=== PATIENT | female | born 1935 | race Caucasian/White ===

== ENCOUNTER → 2018-02-03 15:30 | Outpatient (CLI) | payer MEDICARE, OTHER, SELFPAY ==
--- NOTE | 2018-02-03 15:41 | DI.REPORT_ITS ---
SYMPTOMS/DIAGNOSIS: RIGHT KNEE PAIN, M25.561 RIGHT KNEE: Multiple views. Comparison is 11/30/12. In the medial femorotibial joint space, there is mild joint space narrowing and moderate periarticular spurring. There is a small osteophyte seen at the posterior patella. Chondrocalcinosis is seen in the femorotibial joint space. The bones are intact and normally mineralized. There is a small joint effusion. Arterial calcifications are seen posteriorly. IMPRESSION: Mild to moderate degenerative changes of the right knee.
== END ==
PROVIDERS: PCP Nurse Practitioner Family; Visit Provider Nurse Practitioner Family
DX: M25.561 Pain in right knee (principal); M25.461 Effusion, right knee; M17.11 Unilateral primary osteoarthritis, right knee
CPT/HCPCS: 73562

== ENCOUNTER 2018-11-24 07:11 | Outpatient (CLI) | payer MEDICARE, OTHER, SELFPAY ==
[2018-11-24 07:45] LABS: HCT 40.6 % (36.0-46.0); HGB 14.1 g/dL (12.0-15.5); Mean Corp. HGB Concentration 34.7 g/dL (32.0-36.0); Mean Corpuscular Hemoglobin 35.2 pg (27.0-33.0); Mean Corpuscular Volume 101.2 fL (80-95); Platelet Count 193 x1000/uL (130-400); RBC 4.01 m/cumm (4.00-5.20); RBC Distribution Width 14.4 % (11.7-14.6); White Blood Cell Count 6.61 k/cumm (4.4-10.8)
[2018-11-24 07:55] LABS: Hemoglobin A1C 5.7 % (4.5-6.2)
[2018-11-24 08:50] LABS: Anion Gap 8.6 mmol/L (3-11); BUN 8 mg/dL (7-18); CO2 31.4 mmol/L (21.0-32.0); CREATININE 0.84 mg/dL (0.55-1.02); Calcium 9.4 mg/dL (8.5-10.1); Chloride 100 mmol/L (98-107); Glucose 99 mg/dL (70-100); Potassium 3.4 mmol/L (3.5-5.1); Sodium 140 mmol/L (136-145); TSH (W/Ref FT4) 2.53 uIU/mL (0.358-3.74)
== END 2018-11-24 07:31 ==
PROVIDERS: PCP Nurse Practitioner Family; Visit Provider Family Medicine
DX: I10 Essential (primary) hypertension (principal); R73.03 Prediabetes; E66.9 Obesity, unspecified
CPT/HCPCS: 36415; 80048; 85027; 83036; 84443

== ENCOUNTER 2018-12-10 01:06 | Outpatient (CLI) | payer MEDICARE, OTHER, SELFPAY ==
--- NOTE | 2018-12-10 13:01 | DI.CT_ITS ---
SYMPTOMS/DIAGNOSIS: LUNG CANCER, RIGHT NON-SMALL CELL RESECTION IN 2012, C34.91 CT SCAN OF THE CHEST: Noncontrast CT scan of the chest was performed. Comparison examination is 05/15/15. Since the prior examination, there has developed a soft tissue mass in the right upper lobe posteriorly. It measures 2.6 cm AP x 2.3 cm transverse x 3.2 cm craniocaudad. No other pulmonary masses are seen. No focal consolidating infiltrates are present. There is scarring seen in the lung apices. The thoracic aorta is of normal caliber with mild atherosclerosis. The heart size is within normal limits. No significant pericardial effusion is present. No significant thoracic adenopathy is appreciated. No pericardial effusion or pleural effusion is present. There is no evidence of a pneumothorax. The upper abdominal images are grossly unremarkable. Degenerative changes are seen in the spine. IMPRESSION: New 2.6 x 2.3 x 3.2 cm soft tissue mass in the right upper lobe suspicious for neoplasm. Infectious or inflammatory process is considered less likely. A PET scan may be considered for further evaluation.
[2018-12-10] MEDS: Omnipaque 350 MG/ML 100 ML BTL IJ (13:42)
== END 2018-12-10 01:26 ==
PROVIDERS: PCP Family Medicine; Visit Provider Family Medicine
DX: C34.91 Malignant neoplasm of unspecified part of right bronchus or lung (principal); R91.8 Other nonspecific abnormal finding of lung field
CPT/HCPCS: 71260; J3490

== ENCOUNTER 2018-12-22 01:16 | Outpatient (CLI) | payer MEDICARE, OTHER, SELFPAY ==
--- NOTE | 2018-12-22 14:10 | MERGE_ITS ---
*[facility]* *[facility]* [address] [place] [address] Date of study: 12/22/2018 Transthoracic Echocardiography M-mode, complete 2D, complete spectral Doppler, and color Doppler *STUDY CONCLUSIONS* Impressions: Moderately severe aortic stenosis. Compared to the 2017 study, these findings represent indicate worsening. Summary: 1. Left ventricle: The cavity size was normal. Wall thickness was increased in a pattern of mild LVH. Systolic function was hyperdynamic. The estimated ejection fraction was 65-70%. Wall motion was normal; there were no regional wall motion abnormalities. Findings consistent with diastolic dysfunction. 2. Aortic valve: Valve mobility was restricted. There was moderately severe stenosis. There was mild regurgitation. Peak velocity (S): 4m/sec. Mean gradient (S): 34.1mm Hg. Valve area (VTI): 0.9cm^2. Peak velocity ratio of LVOT to aortic valve: 0.28. 3. Mitral valve: There was mild regurgitation. 4. Left atrium: The atrium was mildly dilated. 5. Right ventricle: The cavity size was normal. Wall thickness was normal. Systolic function was normal. 6. Pulmonary arteries: Pulmonary systolic pressure was increased, in the range of 35mm Hg to 40mm Hg. *PATIENT PRESENTATION* Height: 157.5cm ((62in) ) S/D Pressure: 133 / 76 Weight: 79.4kg ((174.6lb) ) BSA: 1.9m^2 Test start time: 02:15 PM. Test stop time: 03:15 PM. CONSULTING Leatha Lira ORDERING PankajLeatha REFERRING Leatha Lira PERFORMING Unknown PERFORMING [facility] FOREIGN DIPLOMAT Criselda Hancock, RT (Arlene)(CT), RDCS REFERRING [facility] [place], [facility] *PROCEDURE DATA* Procedure information: The patient was identified by two identifiers. This study was interpreted by [facility]. Pertinent images and digital data are archived for permanent storage and are available for subsequent review. Comparison was made to the study of 10/02/2015. Study status: Routine. Transthoracic echocardiography. M-mode, complete 2D, complete spectral Doppler, and color Doppler. A Transthoracic Echocardiogram was performed. Scanning was performed from the parasternal, apical, subcostal, and suprasternal notch acoustic windows. Images were obtained using an [id number] cardiac ultrasound machine. Image quality was adequate. Study completion: The patient tolerated the procedure well. There were no complications. History: PMH: Aortic .0. *CARDIAC ANATOMY* Left ventricle: The cavity size was normal. Wall thickness was increased in a pattern of mild LVH. Systolic function was hyperdynamic. The estimated ejection fraction was 65-70%. Wall motion was normal; there were no regional wall motion abnormalities. Findings consistent with diastolic dysfunction. Aortic valve: Probably trileaflet; moderately calcified leaflets. Valve mobility was restricted. Doppler: There was moderately severe stenosis. There was mild regurgitation. VTI ratio of LVOT to aortic valve: 0.31. Valve area (VTI): 0.9cm^2. Indexed valve area (VTI): 0.5cm^2/m^2. Peak velocity ratio of LVOT to aortic valve: 0.28. Valve area (Vmax): 0.8cm^2. Indexed valve area (Vmax): 0.4cm^2/m^2. Mean velocity ratio of LVOT to aortic valve: 0.32. Valve area (Vmean): 1cm^2. Indexed valve area (Vmean): 0.5cm^2/m^2. Mean gradient (S): 34.1mm Hg. Peak gradient (S): 64.9mm Hg. Aorta: Aortic root: The aortic root was normal in size. Ascending aorta: The ascending aorta was normal in size. Mitral valve: Leaflet separation was normal. Mobility was not restricted. Doppler: Transvalvular velocity was within the normal range. There was no evidence for stenosis. There was mild regurgitation. Valve area by pressure half-time: 3.8cm^2. Indexed valve area by pressure half-time: 2cm^2/m^2. Peak gradient (D): 2.9mm Hg. Left atrium: The atrium was mildly dilated. Right ventricle: The cavity size was normal. Wall thickness was normal. Systolic function was normal. Pulmonic valve: Doppler: Transvalvular velocity was within the normal range. There was no evidence for stenosis. There was no significant regurgitation. Tricuspid valve: Structurally normal valve. Doppler: Transvalvular velocity was within the normal range. There was no evidence for stenosis. There was trivial regurgitation. Pulmonary artery: Pulmonary systolic pressure was increased, in the range of 35mm Hg to 40mm Hg. Right atrium: The atrium was normal in size. Pericardium: There was no pericardial effusion. Systemic veins: Inferior vena cava: Well visualized. The vessel was patent and small. The respirophasic diameter changes were in the normal range (greater than or equal to 50%). Baseline ECG: Bradycardia. Measurements Left ventricle Value Reference LV ID, ED, PLAX 4.5 cm 3.5 - 6.0 LV ID, ES, PLAX 2.8 cm 2.1 - 4.0 LV PW thickness, ED, PLAX 1.2 cm LV end-diastolic volume, 1-p A2C 104 ml LV ejection fraction, 1-p A2C 61 % LV end-diastolic volume, 1-p A4C 72 ml LV ejection fraction, 1-p A4C 67 % LV e', lateral 0.063 m/sec LV E/e', lateral 14 LV e', medial 0.053 m/sec LV E/e', medial 16 LV e', average 0.058 m/sec LV E/e', average 15 Ventricular septum Value Reference IVS thickness, ED, PLAX 1.1 cm LVOT Value Reference LVOT ID, A-P 2.0 cm LVOT area 3 cm^2 LVOT peak velocity, S 1.13 m/sec LVOT mean velocity, S 0.9 m/sec LVOT VTI, S 32.1 cm LVOT peak gradient, S 5.1 mm Hg LVOT mean gradient, S 3.4 mm Hg Stroke volume (SV), LVOT DP 97 ml Stroke index (SV/bsa), LVOT DP 51 ml/m^2 Aortic valve Value Reference Aortic valve peak velocity, S 4 m/sec Aortic valve mean velocity, S 2.75 m/sec Aortic valve VTI, S 102.0 cm Aortic mean gradient, S 34.1 mm Hg Aortic peak gradient, S 64.9 mm Hg VTI ratio, LVOT/AV 0.31 Aortic valve area, VTI 0.9 cm^2 Velocity ratio, peak, LVOT/AV 0.28 Aortic valve area, peak velocity 0.8 cm^2 Velocity ratio, mean, LVOT/AV 0.32 Aortic valve area, mean velocity 1 cm^2 Aortic valve area/bsa, mean velocity 0.5 cm^2/m^2 Aortic regurg deceleration 266 cm/s^2 Aortic regurg pressure half-time 476 ms Aorta Value Reference Aortic root ID, ED 3.2 cm Ascending aorta ID, A-P, S 3.0 cm Left atrium Value Reference LA ID, A-P, ES 3.4 cm LA ID/bsa, A-P 1.8 cm/m^2 <=2.2 LA area, ES, A4C 17.4 cm^2 8.8 - 23.4 LA area, ES, A2C 21 cm^2 LA volume/bsa, ES, 1-p A4C 30 ml/m^2 LA volume, ES, 2-p 62 ml LA volume/bsa, ES, 2-p 32 ml/m^2 LA/aortic root ratio 1.07 Mitral valve Value Reference Mitral E-wave peak velocity 0.85 m/sec Mitral A-wave peak velocity 1.11 m/sec Mitral deceleration time 202 ms 150 - 230 Mitral pressure half-time 58 ms Mitral peak gradient, D 2.9 mm Hg Mitral E/A ratio, peak 0.77 Mitral valve area, PHT, DP 3.8 cm^2 Tricuspid valve Value Reference Tricuspid regurg peak velocity 3.2 m/sec Tricuspid peak RV-RA gradient 40.8 mm Hg Right atrium Value Reference RA area, ES, A4C 16.8 cm^2 8.3 - 19.5 Legend: (L) and (H) sravani values outside specified reference range. I have personally reviewed the images and have reviewed and edited the reported findings. Electronically signed by Lalo Silvestre 12/22/2018 16:26
== END 2018-12-22 01:36 ==
PROVIDERS: PCP Family Medicine; Visit Provider Family Medicine
DX: I35.0 Nonrheumatic aortic (valve) stenosis (principal); I34.0 Nonrheumatic mitral (valve) insufficiency; I51.7 Cardiomegaly; I10 Essential (primary) hypertension
CPT/HCPCS: 93306

== ENCOUNTER → 2019-01-13 09:56 | Outpatient (BNVA) | payer MEDICARE, OTHER, SELFPAY | PROVIDERS: PCP Family Medicine; Referring Provider Family Medicine; Visit Provider Student in an Organized Health Care Education/Training Program | DX: M17.11 Unilateral primary osteoarthritis, right knee (principal); I10 Essential (primary) hypertension; J44.9 Chronic obstructive pulmonary disease, unspecified; Z87.891 Personal history of nicotine dependence | CPT/HCPCS: 20610; 99203; 99213; J1040 ==

== ENCOUNTER 2019-01-22 11:16 | Outpatient (CLI) | payer MEDICARE, OTHER, SELFPAY ==
[2019-01-22 12:20] LABS: BUN 18 mg/dL (7-18)
== END 2019-01-22 11:36 ==
PROVIDERS: PCP Family Medicine; Visit Provider Internal Medicine
DX: R91.8 Other nonspecific abnormal finding of lung field (principal)
CPT/HCPCS: 36415; 84520

== ENCOUNTER 2019-02-19 01:04 | Outpatient (CLI) | payer MEDICARE, OTHER, SELFPAY ==
--- NOTE | 2019-02-19 13:25 | DI.CT_ITS ---
SYMPTOM/DIAGNOSIS: MALIGNANT NEOPLASM LOWER RT LOBE LUNG C34.31, MASS UPPER LOBE RT LUNG R91.8 CT BRAIN: Pre and post contrast examination was performed. Comparison MRI examination is 02/13/19 There is cerebral atrophy consistent with the patient's age. There are areas of decreased attenuation in the white matter likely reflecting small vessel ischemic disease. No evidence of an acute territorial infarct, intracranial hemorrhage, midline shift or mass effect is identified. The ventricles are intact. The basilar cisterns are patent The visualized paranasal sinuses are clear as are the mastoid air cells. Following contrast administration no enhancing lesions are seen. There is a question of a small lytic lesion in the posterior right parietal bone (Series 5, image 130). It is definitely appear to correspond to the area seen on the MRI examination. No periosteal reaction is identified. No other definite lytic or sclerotic lesion is seen. IMPRESSION: 1. No evidence of intracranial metastatic disease 2. No definite osseous lesion to correspond to the enhancement seen on the MRI examination. A bone scan should be considered for further evaluation. A PET CT scan may also be considered.
[2019-02-19 14:35] LABS: CREATININE 1.04 mg/dL (0.55-1.02); Estimated GFR 50.86 (mL/min/1.73m2)
[2019-02-19] MEDS: Omnipaque 350 MG/ML 100 ML BTL IJ (15:04)
== END 2019-02-19 01:24 ==
PROVIDERS: PCP Family Medicine; Visit Provider Thoracic Surgery (Cardiothoracic Vascular Surgery)
DX: C34.31 Malignant neoplasm of lower lobe, right bronchus or lung (principal); R91.8 Other nonspecific abnormal finding of lung field; G31.89 Other specified degenerative diseases of nervous system; Z90.2 Acquired absence of lung [part of]
CPT/HCPCS: 70470; 82565; J3490

== ENCOUNTER 2019-04-08 13:24 | Outpatient (CLI) | payer MEDICARE, OTHER, SELFPAY ==
--- NOTE | 2019-04-08 09:50 | PFT_ITS ---
PULMONARY FUNCTION TEST REPORT REQUESTING PROVIDER: Dr. Dacosta Spirometry shows mild obstructive airways disease with no significant bronchodilator response. Lung volumes show no evidence of restriction. Diffusion capacity mildly reduced, which is normal when corrected to alveolar volume. Airways resistance normal. IMPRESSION: Mild obstructive airways disease with no significant bronchodilator response. This is associated with mild diffusion defect. Clinical correlation recommended. For lung resection purposes, the patient?s total post- bronchodilator FEV1 is 1.45 liters. When this study was compared to previous ones from 09/23/08, 01/21/13, 11/17/14 and 09/13/15, the patient has an initial drop in FVC, but overall has been stable since 2012. FEV1 again had an initial drop but has been stable since 2013. KAYLI/carmella D/
[2019-04-08] MEDS: Inhaler, Assist Device 1 EACH MC (14:19)
[2019-04-08] MEDS: Albuterol HFA 18 GM 200 PUFF INH IH (14:20)
== END 2019-04-08 13:44 ==
PROVIDERS: PCP Family Medicine; Visit Provider Family Medicine
DX: C34.31 Malignant neoplasm of lower lobe, right bronchus or lung (principal); Z87.891 Personal history of nicotine dependence
CPT/HCPCS: 94060; 94150; 94726; 94729

== ENCOUNTER 2019-04-19 01:11 | Outpatient (CLI) | payer MEDICARE, OTHER, SELFPAY ==
[2019-04-19 13:04] LABS: CREATININE 0.79 mg/dL (0.55-1.02)
[2019-04-19] MEDS: Omnipaque 350 MG/ML 100 ML BTL IJ (14:08)
--- NOTE | 2019-04-19 14:09 | DI.CT_ITS ---
EXAM: CT CHEST CLINICAL HISTORY: MALIGNANT NEOPLASM RT UPPER LOBE OF LUNG C34.11, RESTAGING PRIOR TO XRT TECHNIQUE: Post IV contrast COMPARISON: CT CHEST W from 12/10/2018 FINDINGS: There has been interval increase in size of the previously noted mass in the posterior right upper l obe. It now measures 3.7 x 3.5 cm. Mass lies directly adjacent to the hilum. The lymph nodes versus fluid is noted in the region of the AP window and subcarinal region. There are smaller areas of nod ularity seen posterior to the main mass, near the pleura. There has been no change in 2 small nodule s in the right upper lobe anteriorly. Again noted are mild underlying emphysematous changes. No ple ural or pericardial effusions are seen. The liver, gallbladder, pancreas, adrenal and right kidney are unremarkable. Left renal cysts are se en. The spleen again has a lobulated appearance. The aorta shows calcification but is normal in rola meter. There is a lymph node at the level of celiac axis measuring 9 millimeters. No definite lytic or blastic bony lesions are seen. IMPRESSION: Interval increase in size of right upper lobe mass.
--- NOTE | 2019-04-19 16:52 | DI.VRAD_ITS ---
PROCEDURE INFORMATION: Exam: CT Chest With Contrast Exam date and time: 04/19/2019 2:10 PM Clinical history: 83 years old, female; Condition or disease; Lung condition and disease; Other: Malignant neoplasm RT upper lobe; Patient HX: Malignant neoplasm of RT upper lobe; Additional info: Restaging prior to xrt TECHNIQUE: Imaging protocol: Computed tomography of the chest with intravenous contrast. COMPARISON: CT CHEST W 12/10/2018 1:19 PM FINDINGS: Lungs: Again noted is a mass in the posterior aspect of the right upper lobe. It measures 3.67 x 3.5 cm. It has increased in size since November from 2.5 x 2.3 cm. Known malignancy. Groundglass pulmonary nodule 7.4 mm right lower lobe (2:37). 4.3 mm nodule right middle lobe. Pleural space: Unremarkable. No pneumothorax. No pleural effusion. Heart: Coronary artery calcifications may indicate coronary artery disease. There is calcification of the aortic valve annulus. There is calcification of the mitral valve annulus. Aorta: Unremarkable. No aortic aneurysm. Lymph nodes: Pathologic node in aorticopulmonary window 14.5 x 10.7 mm. Kidneys and ureters: 16mm cyst in the left kidney. Nonobstructing right renal calculi Bones/joints: Incompletely healed right rib fractures Soft tissues: Unremarkable. IMPRESSION: 1. Again noted is a mass in the posterior aspect of the right upper lobe. It measures 3.67 x 3.5 cm. It has increased in size since November from 2.5 x 2.3 cm. Known malignancy. 2. Pathologic node in aorticopulmonary window 14.5 x 10.7 mm. 3. Groundglass pulmonary nodule 7.4 mm right lower lobe (2:37). 4. 4.3 mm nodule right middle lobe. Dictated and Authenticated by: Fito Orosco MD. Ordering:AYO Arce MD
== END 2019-04-19 01:31 ==
PROVIDERS: PCP Family Medicine; Visit Provider Radiology Radiation Oncology
DX: C34.11 Malignant neoplasm of upper lobe, right bronchus or lung (principal); R91.8 Other nonspecific abnormal finding of lung field
CPT/HCPCS: 71260; 82565; J3490

== ENCOUNTER 2019-09-28 14:16 | Outpatient (CLI) | payer MEDICARE, OTHER, SELFPAY ==
[2019-10-01 09:23] LABS: SARS-CoV-2 RNA Undetected (Undetected); SARS-CoV-2 Specimen Source Nasal
== END 2019-09-28 14:36 ==
PROVIDERS: PCP Family Medicine; Visit Provider Physician Assistant
DX: Z20.828 Contact with and (suspected) exposure to other viral communicable diseases (principal); Z11.59 Encounter for screening for other viral diseases; J06.9 Acute upper respiratory infection, unspecified
CPT/HCPCS: 87449; U0003

== ENCOUNTER 2019-10-29 01:16 | Outpatient (CLI) | payer MEDICARE, OTHER, SELFPAY ==
--- NOTE | 2019-10-29 | DI.CT_ITS ---
EXAM: CT CHEST W CLINICAL HISTORY: F/U RUL LUNG CA, C34.11, S/P RT, RESTAGING EXAM TECHNIQUE: Imaging Protocol: Axial computed tomography images with coronal and sagittal reformatted images were created and reviewed CONTRAST MATERIAL: Intravenous: Omnipaque 350 Contrast volume:70 ml. COMPARISON: CT CHEST W from 04/19/2019 FINDINGS: Mediastinum and Silvia: No dominant adenopathy or fluid collection. Pulmonary parenchyma: Again noted is right-sided volume loss. There is now a large quantity of incr eased airspace density seen in the right upper lobe. Air bronchograms are seen. The findings are co nsistent with post treatment changes. The previously noted right upper lobe mass is no longer visibl e. Multiple nodular densities are seen in both lung bases, which could represent infiltrates, or met astatic disease is not entirely excluded. Pleura: No effusion or pneumothorax. Heart: The heart is mildly dilated. Coronary artery calcifications are seen. Aorta: Thoracic aorta is ectatic and calcified but non-dilated. Upper abdomen: Unremarkable. Lymph nodes: Within normal limits. Bones: Postsurgical deformities of the right ribs. Degenerative changes are seen in the spine. IMPRESSION: Marked interval increase in airspace opacities in the right upper lobe may represent post treatment c hanges. The previously noted mass is no longer visible. RADIATION DOSE DELIVERED: Total DLP DATA REPOSITORY: All CT scans at this facility are submitted to the National Radiology Data Registry (NRDR) Dose Index Registry (DIR) with the [employer] (ACR). RADIATION OPTIMIZATION: All CT scans at this facility use at least one of these dose optimization te chniques: automated exposure control; mA and/or kV adjustment per patient size (includes targeted exa ms where dose is matched to clinical indication); or iterative reconstruction.
[2019-10-29 12:58] LABS: CREATININE 0.81 mg/dL (0.55-1.02)
== END 2019-10-29 01:36 ==
PROVIDERS: PCP Family Medicine; Visit Provider Radiology Radiation Oncology
DX: C34.11 Malignant neoplasm of upper lobe, right bronchus or lung (principal); Z92.3 Personal history of irradiation; J98.4 Other disorders of lung
CPT/HCPCS: 71260; 82565

== ENCOUNTER 2019-12-08 21:01 | Outpatient (REF) | payer MEDICARE, OTHER, SELFPAY ==
[2019-12-08 20:40] LABS: Anion Gap 5.2 mmol/L (3-11); BUN 17 mg/dL (7-18); CO2 31.8 mmol/L (21.0-32.0); CREATININE 1.38 mg/dL (0.55-1.02); Calcium 9.6 mg/dL (8.5-10.1); Chloride 101 mmol/L (98-107); Glucose 98 mg/dL (74-106); Potassium 4.5 mmol/L (3.5-5.1); Sodium 138 mmol/L (136-145)
[2019-12-08 21:11] LABS: Hemoglobin A1C 5.9 % (3.8-5.6)
== END 2019-12-08 21:21 ==
LOC: NCHCN 21:01
PROVIDERS: PCP Family Medicine; Visit Provider Family Medicine
DX: R73.03 Prediabetes (principal); I10 Essential (primary) hypertension
CPT/HCPCS: 80048; 83036

== ENCOUNTER 2019-12-13 18:27 | Outpatient (REF) | payer MEDICARE, OTHER, SELFPAY ==
[2019-12-13 17:07] LABS: Bilirubin Negative (Negative); Blood Negative (Negative); Clarity Clear (Clear); Glucose Negative (Negative); Ketones Negative (Negative); Leukocyte Esterase Negative (Negative); Nitrite Negative (Negative); Specific Gravity 1.015 (1.005-1.025); Urobilinogen 0.2 EU/dL (Up TO 0.2)
== END 2019-12-13 18:47 ==
LOC: LBN 18:27
PROVIDERS: PCP Family Medicine; Visit Provider Family Medicine
DX: N39.3 Stress incontinence (female) (male) (principal); R94.4 Abnormal results of kidney function studies
CPT/HCPCS: 81003

== ENCOUNTER 2019-12-15 02:41 | Outpatient (CLI) | payer MEDICARE, OTHER, SELFPAY ==
--- NOTE | 2019-12-15 | DI.US_ITS ---
EXAM: US RENAL CLINICAL HISTORY: ABNL RENAL FUNCTION FINDING, R94.4. TECHNIQUE: Bray scale, color and spectral Doppler were used. COMPARISON: CR ABD FLAT UPRIGHT PA CHEST from 06/03/2011 CT CHEST WITHOUT CONTRAST from 06/20/[address] CHEST W from 10/29/2019 FINDINGS: Renal size in cm: Right: 10.5 left: 9.2 Echogenicity: Normal Hydronephrosis: No Cyst or mass: 12 millimeter cyst in the mid left kidney. Nephrolithiasis: 3 millimeter stone near the lower pole of the right kidney. 6 millimeter stone at t he medial right kidney. Other findings: None Bladder:Normal ureteral jets were visualized. Prevoid vol:38 cc Postvoid vol:16 cc IMPRESSION: Nonobstructing right renal calculi. Small left renal cyst. DATA REPOSITORY:
== END 2019-12-15 03:01 ==
PROVIDERS: PCP Family Medicine; Visit Provider Family Medicine
DX: N20.0 Calculus of kidney (principal); N28.1 Cyst of kidney, acquired; R94.4 Abnormal results of kidney function studies
CPT/HCPCS: 76770

== ENCOUNTER 2020-02-16 01:37 | Outpatient (CLI) | payer MEDICARE, OTHER, SELFPAY ==
[2020-02-16] MEDS: Normal Saline - Diluent 50 ML VIAL IV (14:44)
[2020-02-16] MEDS: Omnipaque 350 MG/ML 100 ML BTL IJ (14:46)
--- NOTE | 2020-02-16 14:50 | DI.CT_ITS ---
EXAM: CT CHEST W CLINICAL HISTORY: H/O LUNG CA,S/P TREATMENT, ? STATUS OF DISEASE TECHNIQUE: Imaging Protocol: Axial computed tomography images with coronal and sagittal reformatted images were created and reviewed CONTRAST MATERIAL: Intravenous: Omnipaque 350 Contrast volume:69 cc COMPARISON: CT CT CHEST W from 10/29/2019 FINDINGS: Mediastinum and Silvia: No dominant adenopathy or fluid collection. Pulmonary parenchyma: Right upper lobe volume loss and right upper lobe consolidation, increase in co mponent compared with the previous exam. No discrete mass is visible. Pleura: No effusion or pneumothorax. Heart: The heart is mildly dilated. Marked coronary artery calcifications are seen. Aorta: Thoracic aorta non-dilated. Atherosclerotic changes and tortuosity. Upper abdomen: Small hiatal hernia. Lymph nodes: Within normal limits. Bones: Right posterior rib defects. Degenerative disc changes in the spine. No lytic or blastic les ions are seen. IMPRESSION: Right upper lobe volume loss and post treatment changes. There consolidation in the right upper lobe has increased. No mass is visible. No adenopathy or metastases are identified. RADIATION DOSE DELIVERED: 452.71mGy.cm Total DLP DATA REPOSITORY: All CT scans at this facility are submitted to the National Radiology Data Registry (NRDR) Dose Index Registry (DIR) with the [employer] (ACR). RADIATION OPTIMIZATION: All CT scans at this facility use at least one of these dose optimization te chniques: automated exposure control; mA and/or kV adjustment per patient size (includes targeted exa ms where dose is matched to clinical indication); or iterative reconstruction.
== END 2020-02-16 01:57 ==
PROVIDERS: Radiology Radiation Oncology; PCP Family Medicine; Visit Provider Nurse Practitioner Family
DX: J18.1 Lobar pneumonia, unspecified organism (principal); Z85.118 Personal history of other malignant neoplasm of bronchus and lung
CPT/HCPCS: 71260; 82565; J3490

== ENCOUNTER 2020-04-05 00:26 | Outpatient (CLI) | payer MEDICARE, OTHER, SELFPAY ==
--- NOTE | 2020-04-05 | DI.CT_ITS ---
EXAM: CT CHEST WO CLINICAL HISTORY: H/O LUNG CANCER, S/P TREATMENT, ? STATUS OF DISEASE, PRIMARY NEOPLASM RUL TECHNIQUE: COMPARISON: CT CT CHEST W from 02/16/2020 FINDINGS: CT examination of the chest was performed without contrast administration. Examination is compared w ith most recent prior CT February 15. Patient the right upper lobe lung carcinoma, note is again mad e large areas of consolidation/volume loss the right upper lobe. The findings are essentially unchan ged comparison with the previous examination. No new mediastinal hilar adenopathy seen. There is no significant axillary or supraclavicular adenopathy. Trace right pleural effusion again noted. Left lung remains clear. Coronary artery calcification again noted. Images obtained through the upper abdomen show unremarkable appearance of visualized portions of live r, spleen, and pancreas by noncontrast criteria. Bilateral nonobstructing renal calculi noted. Adre nals appear normal. IMPRESSION: Stable appearance of right upper lobe consolidation/volume loss in a patient with known lung carcinom a. No change from 02/16/2020. RADIATION DOSE DELIVERED: 569.51mGy.cm Total DLP
== END 2020-04-05 00:46 ==
PROVIDERS: PCP Family Medicine; Visit Provider Nurse Practitioner Family
DX: C34.11 Malignant neoplasm of upper lobe, right bronchus or lung (principal)
CPT/HCPCS: 71250

== ENCOUNTER 2020-05-31 10:30 | Outpatient (REF) | payer MEDICARE, OTHER, SELFPAY ==
[2020-05-31 19:56] LABS: Anion Gap 3.8 mmol/L (3-11); BUN 16 mg/dL (7-18); CO2 33.2 mmol/L (21.0-32.0); CREATININE 0.94 mg/dL (0.55-1.02); Calcium 9.1 mg/dL (8.5-10.1); Chloride 107 mmol/L (98-107); Estimated GFR 56.87 (mL/min/1.73m2); Glucose 85 mg/dL (74-106); Potassium 3.9 mmol/L (3.5-5.1); Sodium 144 mmol/L (136-145)
[2020-05-31 19:57] LABS: HCT 41.3 % (36.0-46.0); HGB 13.1 g/dL (11.2-15.7); MCH 32.8 pg (27.0-33.0); MCHC 31.7 % (32.0-36.0); MCV 103.5 fL (80-95); MPV 12.1 fL (8.0-11.0); Platelet Count 230 10^3/uL (130-400); RBC 3.99 10^6/uL (3.93-5.22); RDW 14.6 % (11.7-14.6); RDW-SD 56.9 fL; WBC 6.29 10^3/uL (4.4-10.8)
== END 2020-05-31 10:50 ==
LOC: NCHCN 10:30
PROVIDERS: PCP Family Medicine; Visit Provider Family Medicine
DX: I10 Essential (primary) hypertension (principal)
CPT/HCPCS: 80048; 85027

== ENCOUNTER → 2020-08-03 10:21 | Outpatient (BNVA) | payer MEDICARE, OTHER, SELFPAY | PROVIDERS: PCP Family Medicine; Referring Provider Family Medicine; Visit Provider Nurse Practitioner Gerontology | DX: R32 Unspecified urinary incontinence (principal); R31.9 Hematuria, unspecified | CPT/HCPCS: 81003; 99215 ==

== ENCOUNTER 2020-08-04 00:10 | Outpatient (REF) | payer MEDICARE, OTHER, SELFPAY | END 2020-08-04 00:11 | LOC: LBN 00:10 | PROVIDERS: PCP Family Medicine; Visit Provider Nurse Practitioner Gerontology | DX: R31.9 Hematuria, unspecified (principal); R32 Unspecified urinary incontinence | CPT/HCPCS: 87077; 87086; 87186 ==

== ENCOUNTER → 2020-08-29 14:20 | Outpatient (BNVA) | payer MEDICARE, OTHER, SELFPAY | PROVIDERS: PCP Family Medicine; Referring Provider Family Medicine; Visit Provider Nurse Practitioner Gerontology | DX: N39.46 Mixed incontinence (principal) | CPT/HCPCS: 99213 ==

== ENCOUNTER → 2020-08-31 02:42 | Outpatient (CLI) | payer MEDICARE, OTHER, SELFPAY ==
--- NOTE | 2020-08-31 | DI.CT_ITS ---
EXAM: CT CHEST WO CLINICAL HISTORY: RUL LUNG CA,C34.11,S/P RADIATION,? STATUS OF DISEASE,ASSESS TREATMENT RESP. TECHNIQUE: Imaging protocol: Axial computed tomography images were obtained and coronal and sagittal reformatted images were created and reviewed. COMPARISON: CT CT CHEST WO from 04/05/2020 FINDINGS: There has been no change in the area of consolidation and volume loss involving the right lung. No n ew thoracic adenopathy is identified. There is atherosclerosis and tortuosity of the thoracic aorta. Heart size is within normal limits. Coronary artery calcification and/or stents are noted. No significant pericardial effusion is seen. There is pleural thickening or small right pleural effusion which is unchanged. No left pleural eff usion is seen. No pneumothorax is present. Mild centrilobular emphysematous changes are seen in the lungs. The interstitial changes in the lungs appears stable. No new infiltrates are seen. There a re degenerative changes seen in the spine. Stable right rib deformities are present. No suspicious lytic or sclerotic lesions are seen. No abnormality is seen in the upper abdomen. IMPRESSION: Stable appearance of the chest since 04/05/2021. RADIATION DOSE DELIVERED: 419.22mGy.cm Total DLP 419.22mGy.cm Total DLP DATA REPOSITORY: All CT scans at this facility are submitted to the National Radiology Data Registry (NRDR) Dose Index Registry (DIR) with the [employer] (ACR). RADIATION OPTIMIZATION: All CT scans at this facility use at least one of these dose optimization te chniques: automated exposure control; mA and/or kV adjustment per patient size (includes targeted exa ms where dose is matched to clinical indication); or iterative reconstruction.
== END ==
PROVIDERS: PCP Family Medicine; Visit Provider Nurse Practitioner Family
DX: C34.11 Malignant neoplasm of upper lobe, right bronchus or lung (principal)
CPT/HCPCS: 71250

== ENCOUNTER → 2020-09-26 10:27 | Outpatient (BNVA) | payer MEDICARE, OTHER, SELFPAY | PROVIDERS: PCP Family Medicine; Referring Provider Family Medicine; Visit Provider Nurse Practitioner Gerontology | DX: R32 Unspecified urinary incontinence (principal) | CPT/HCPCS: 81003; 99214 ==

== ENCOUNTER 2020-09-26 13:33 | Outpatient (REF) | payer MEDICARE, OTHER, SELFPAY | END 2020-09-26 13:34 | disposition home or self-care (01) | LOC: LBN 13:33 | PROVIDERS: PCP Family Medicine; Visit Provider Nurse Practitioner Gerontology | DX: R32 Unspecified urinary incontinence (principal) | CPT/HCPCS: 87077; 87086; 87186 ==

== ENCOUNTER → 2020-10-23 14:27 | Outpatient (BNVA) | payer MEDICARE, OTHER, SELFPAY | PROVIDERS: PCP Family Medicine; Referring Provider Family Medicine; Visit Provider Physician Assistant | DX: M17.11 Unilateral primary osteoarthritis, right knee (principal) | CPT/HCPCS: 20610; J1040 ==

== ENCOUNTER → 2020-12-27 09:59 | Outpatient (BNVA) | payer MEDICARE, OTHER, SELFPAY | PROVIDERS: PCP Family Medicine; Referring Provider Family Medicine; Visit Provider Nurse Practitioner Gerontology | DX: R32 Unspecified urinary incontinence (principal); Z79.899 Other long term (current) drug therapy | CPT/HCPCS: 99214 ==

== ENCOUNTER 2021-02-15 11:13 | Inpatient (IN) | payer MEDICARE, OTHER, SELFPAY ==
[2021-02-15] VITALS (64 sets, daily range): BP systolic 94–160; BP diastolic 52–74; PULSE 56–87; RESP 16–35; TEMP 35.4–36.6; O2SAT 81–99
--- NOTE | 2021-02-15 11:15 | RT.EKG_ITS ---
APPROVED REPORT Exam: Resting ECG Reason for Exam: SOB Patient Location: E HR:63 bpm ECG Measurements Heart Rate 63 AXIS HI 162 P 52 QRSd 102 QRS -38 QT 367 T 38 QTc 378 Conclusion Sinus rhythm...normal P axis, V-rate 60- 99 Left ventricular hypertrophy...multiple LVH criteria
--- NOTE | 2021-02-15 11:27 | W.ED.GENAD ---
Discharge Plan Disposition Patient Disposition: [facility] INPATIENT Condition: Serious Discharge Details Clinical Impression: COVID, Hypoxia, Pneumonia Primary Care Provider: Leatha Lira ED Provider: Paresh Rosas Home Meds and New Rx's Prescriptions: No Action Myrbetriq 25 mg tablet extended release 24 hr 25 mg PO DAILY Qty: 90 RF: 3 gabapentin 100 mg capsule 400 mg PO DAILY RF: 0 omega-3 fatty acids 1,000 MG capsule 1,000 mg PO BID RF: 0 metoprolol tartrate 100 MG tablet 100 mg PO BID RF: 0 amlodipine 5 MG tablet 5 mg PO DAILY RF: 0 calcium carbonate-vitamin D3 1 EACH tablet 4 ea PO DAILY RF: 0 aspirin [Aspir-81] 81 MG tablet,delayed release (DR/EC) 81 mg PO DAILY RF: 0 multivitamin 1 EACH capsule 1 ea PO DAILY RF: 0 atorvastatin 40 MG tablet 40 mg PO DAILY RF: 0 triamcinolone acetonide 15 GM cream 15 gm Topical BID RF: 0 fluticasone propionate 15.8 ML spray,suspension 2 spry NS DAILY RF: 0 levalbuterol tartrate [Xopenex HFA] 200 PUFF HFA aerosol inhaler 2 puff Inhalation .Q4-6H PRN RF: 0 budesonide-formoterol [Symbicort] 60 PUFF HFA aerosol inhaler 2 puff Inhalation BID RF: 0 Move Free Joint Health 1 EACH tablet 1 ea PO BID RF: 0 Loratadine 10 MG capsule 10 mg PO DAILY RF: 0 PreserVision AREDS-2 250-90-40-1 mg Capsule 2 cap PO DAILY RF: 0 Medical Decision Making 85-year-old female presents to the ER, multiple comorbidities, with body aches, dry cough, fatigue that began yesterday worsening today. She did have a recent family gathering. O2 sats are 90% upon arrival, diffuse wheezing throughout with decreased breath sounds bilateral bases. Differential includes not excluded to pneumonia, COPD exacerbation, bronchitis, Covid, CHF, based upon presentation less likely ACS, PE, dissection, etc. Will provide patient with IV Solu-Medrol, a DuoNeb, albuterol neb, and initiate cardiac work-up including BNP. Given presentation and extremely low suspicion for PE, we'll not obtain D-dimer. Upon reevaluation no significant change with neb treatments or steroids. She is now requiring 3 L of oxygen nasal cannula and appears slightly more tachypneic. She is able to speak in full sentences. Removing O2 her O2 sats do drop into the mid 80s at rest. Initial laboratory values reveal a white blood cell count of 4.64 platelet count 160, sodium 138 potassium 3.3, creatinine 0.7 with a GFR greater than 60, troponin less than 0.05, BNP minimally elevated at 700. Chest x-ray read as right-sided infiltrate per radiology. Covid is now positive per laboratory studies. Given she is afebrile, no evidence of leukocytosis, will hold antibiotics until I speak with hospitalist team. Once again oxygen level is appropriate with 3 and half liters nasal cannula however when on room air at rest her O2 dropped to 85 without any exertion whatsoever. Case discussed with Dr. Barnhart who is agreeable to admit the patient to his services. Would like to initiate 2 g Rocephin and 500 erythromycin. We'll also order a sputum culture if she is able to provide a sample. This plan was discussed with both patient and her daughter on the phone, they are both agreeable to admission. Medical Records Medical records reviewed: Yes I reviewed the patient's medical records. Imaging Data Radiologic Study: Attestation: I personally reviewed and interpreted this imaging study as follows: Imaging: X-Ray Radiologist's impression: Exam(s) XR PORTABLE CHEST AP EXAM: XR PORTABLE CHEST AP CLINICAL HISTORY: cough. TECHNIQUE: 2D digital imaging was performed. COMPARISON: CR CHEST 2 VIEWS PA,LAT from 09/26/[address] CHEST WO from 04/05/[address] CHEST WO from 04/05/2020 FINDINGS: Chest leads in place. Heart size is upper normal. Decreased right hemithoracic volume is noted. There is infiltrate in the right upper lobe. Also right upper pleural thickening. Left lung remains relatively clear. No left pleural effusion. Lab Data Lab results reviewed: Yes I reviewed the patient's lab results. Labs: 02/15/21 13:50 Blood Blood Culture - Pending 02/15/21 13:50 Blood Blood Culture - Pending Laboratory Tests Range/Units 02/15/21 02/15/21 02/15/21 11:40 11:40 12:10 WBC (4.4-10.8) 10^3/uL 4.64 RBC (3.93-5.22) 10^6/uL 4.01 Hgb (11.2-15.7) g/dL 13.5 Hct (36.0-46.0) % 41.0 MCV (80-95) fL 102.2 H MCH (27.0-33.0) pg 33.7 H MCHC (32.0-36.0) % 32.9 RDW (11.7-14.6) % 14.2 Plt Count (130-400) 10^3/uL 160 MPV (8.0-11.0) fL 11.7 H Immature Gran % 0.6 Neutrophils % 71.0 Lymphocytes % 12.5 Monocytes % 15.1 Eosinophils % 0.2 Basophils % 0.6 Nucleated RBC % % 0 Absolute Neutrophils (1.2-6.7) 10^3/uL 3.29 Absolute Lymphocytes (1.2-3.4) 10^3/uL 0.58 L Absolute Monocytes (0.1-0.8) 10^3/uL 0.70 Absolute Eosinophils (0.0-0.7) 10^3/uL 0.01 Absolute Basophils (0.0-0.2) 10^3/uL 0.03 Sodium (136-145) mmol/L 138 Potassium (3.5-5.1) mmol/L 3.3 L Chloride (98-107) mmol/L 99 Carbon Dioxide (21.0-32.0) mmol/L 31.7 Anion Gap (3-11) mmol/L 7.3 BUN (7-18) mg/dL 8 Creatinine (0.55-1.02) mg/dL 0.7 Estimated GFR/1.73 m2 (mL/min/1.73m2) >= 60.00 Glucose (74-106) mg/dL 99 Calcium (8.5-10.1) mg/dL 9.2 Total Bilirubin (0.2-1.0) mg/dL 0.3 AST (15-37) U/L 29 ALT (14-59) U/L 28 Alkaline Phosphatase (46-116) U/L 62 Troponin I (<0.06) ng/mL < 0.05 NT-Pro-B Natriuret Pep (<300) pg/mL 700 H Total Protein (6.4-8.2) g/dL 7.2 Albumin (3.4-5.0) g/dL 3.0 L COVID-19 Source Nasal/Nares SARS-CoV-2 (PCR) (Negative) POSITIVE A* Range/Units 02/15/21 14:40 WBC (4.4-10.8) 10^3/uL RBC (3.93-5.22) 10^6/uL Hgb (11.2-15.7) g/dL Hct (36.0-46.0) % MCV (80-95) fL MCH (27.0-33.0) pg MCHC (32.0-36.0) % RDW (11.7-14.6) % Plt Count (130-400) 10^3/uL MPV (8.0-11.0) fL Immature Gran % Neutrophils % Lymphocytes % Monocytes % Eosinophils % Basophils % Nucleated RBC % % Absolute Neutrophils (1.2-6.7) 10^3/uL Absolute Lymphocytes (1.2-3.4) 10^3/uL Absolute Monocytes (0.1-0.8) 10^3/uL Absolute Eosinophils (0.0-0.7) 10^3/uL Absolute Basophils (0.0-0.2) 10^3/uL Sodium (136-145) mmol/L Potassium (3.5-5.1) mmol/L Chloride (98-107) mmol/L Carbon Dioxide (21.0-32.0) mmol/L Anion Gap (3-11) mmol/L BUN (7-18) mg/dL Creatinine (0.55-1.02) mg/dL Estimated GFR/1.73 m2 (mL/min/1.73m2) Glucose (74-106) mg/dL Calcium (8.5-10.1) mg/dL Total Bilirubin (0.2-1.0) mg/dL AST (15-37) U/L ALT (14-59) U/L Alkaline Phosphatase (46-116) U/L Troponin I (<0.06) ng/mL < 0.05 NT-Pro-B Natriuret Pep (<300) pg/mL Total Protein (6.4-8.2) g/dL Albumin (3.4-5.0) g/dL COVID-19 Source SARS-CoV-2 (PCR) (Negative) ECG Data Attestation: I personally reviewed and interpreted this ECG (s) as follows: Interpretation: Please see official report by Dr. Portillo. Sinus rhythm, ventricular rate of 63. No STEMI. LVH present HPI General Mode of arrival: ambulatory. Date/Time Provider Initiated Documentation: 02/15/21 11:15. Limitations to Documentation: no limitations. Information obtained by: patient. HPI Narrative: This is an 85-year-old female, former smoker, past medical history that includes aortic stenosis, asthma, COPD, hyperlipidemia, hypertension, osteoarthritis, PVD, presenting to the ER for evaluation of generalized fatigue, body aches, mostly dry cough with occasional clear sputum over the past 24 hours. Patient states it began yesterday but worse this morning upon awaking. She also states that she did receive her Covid vaccine several months ago. Did have a family gathering last weekend although no obvious sick exposures. She denies headache, fever, neck pain, chills, chest pain, abdominal pain, nausea, vomiting, dysuria, diarrhea, pain or swelling her legs. She has not taken any ttpo-khq-pwywtns medications for her symptoms. She is not O2 dependent at home. She also reports mild shortness of breath with exertion. Related Data Home Medications Medication Instructions Recorded Confirmed amlodipine 5 mg PO DAILY 12/04/12 02/15/21 aspirin [Aspir 81] 81 mg PO DAILY 12/04/12 02/15/21 calcium carbonate-vitamin D3 4 ea PO DAILY 12/04/12 02/15/21 metoprolol tartrate 100 mg PO BID 12/04/12 02/15/21 multivitamin 1 ea PO DAILY 12/04/12 02/15/21 omega-3 fatty acids 1,000 mg PO BID 12/04/12 10/23/20 Loratadine 10 mg PO DAILY 10/09/17 02/15/21 atorvastatin 40 mg PO DAILY 10/09/17 02/15/21 budesonide-formoterol [Symbicort 2 puff INHALATION BID 10/09/17 02/15/21 160/4.5 Mcg Inhaler] fluticasone propionate 2 spry NS DAILY 10/09/17 02/15/21 mzmhgnbi-cxtgn-bywiw-CF borate 1 ea PO BID 10/09/17 02/15/21 [Move Free Joint Health Tablet] levalbuterol tartrate [Xopenex Hfa] 2 puff INHALATION .Q4-6H PRN 10/09/17 02/15/21 triamcinolone acetonide 15 gm TOPICAL BID 10/09/17 02/15/21 gabapentin 100 mg capsule 400 mg PO DAILY cap 06/08/20 10/23/20 mirabegron 25 mg tablet,extended 25 mg PO DAILY #90 tab 12/27/20 02/15/21 release 24 hr vit C,A-Ag-aquqn-lutein-zeaxan 2 cap PO DAILY 02/15/21 02/15/21 [PreserVision AREDS-2] Previous Rx's Medication Instructions Recorded mirabegron 25 mg tablet,extended 25 mg PO DAILY #90 tab 12/27/20 release 24 hr Allergies Allergy/AdvReac Type Severity Reaction Status Date / Time venom-honey bee Allergy Severe Swelling/Ed Unverified 02/15/21 11:32 [bee venom (honey bee)] yossi General Stated Complaint: RespSymp NICOLETTE: 3 Review of Systems Constitutional Constitutional: Reports fatigue, Denies fever(s) and Denies headache(s) Eyes Eyes: Denies change in vision ENT Ears, Nose, Mouth, and Throat: Denies headache(s) and Denies neck pain Cardiovascular Cardiovascular: Denies chest pain and Reports dyspnea Respiratory Respiratory: Reports cough and Reports dyspnea Gastrointestinal Gastrointestinal: Denies abdominal pain, Denies nausea and Denies vomiting Genitourinary Genitourinary: Denies dysuria Musculoskeletal Musculoskeletal: Denies back pain, Reports myalgias and Denies neck pain Integumentary/Breasts Skin/Breast: Denies rash Neurologic Neurologic: Denies headache(s) Endocrine Endocrine: Reports fatigue [facility] Medical History Aortic stenosis Asthma COPD (chronic obstructive pulmonary disease) Diverticulosis Hyperlipidemia Hypertension Lung cancer Macular degeneration Mild asthma Obesity Osteoarthritis Peripheral vascular disease Urinary incontinence Social History Smoking/Tobacco Use Status: Former Tobacco Use Smoking risk assessment performed?: Yes Alcohol Intake: current Alcohol Intake frequency: 0-2 drinks per day Alcohol type: hard liquor Drug use: Never Substance use type: does not use Do you feel safe at home: Yes Do you feel safe in your relationship?: Yes Exam Const General: cooperative and comfortable Orientation: alert and awake [facility] Head: normal to inspection, normocephalic and atraumatic Face and sinus: normal facial exam Mouth: moist mucous membranes Eyes General: appearance normal, both eyes and all related structures Conjunctivae: conjunctivae normal Neck Neck: normal visual inspection, full ROM, no lymphadenopathy, no meningeal signs, trachea midline, supple and nontender Resp Effort & Inspection: normal respiratory effort, able to speak in complete sentences and cough Quality of cough: dry Auscultation: diminished lung sounds bilaterally in the lower lung jacobs and wheezes (Scattered throughout) Cardio Rate: regular rate Rhythm: regular rhythm GI Palpation: soft, not firm, no guarding, no pulsatile masses and nontender Back/Spine/Pelvis Back: No back tenderness Skin General skin exam: no rashes or lesions noted Neuro General: patient alert, patient awake, moves all extremities and no focal motor deficits Cognition: normal cognition Speech: speech normal Gait: normal gait Sensory Exam: no sensory deficits noted Extrem General: normal to inspection, full ROM, capillary refill normal, no pedal edema and no calf tenderness Psych Appearance: grossly normal Mental Status: mental status grossly normal Course Vital Signs Vital signs: Vital Signs Temperature 36.6 C 02/15/21 11:19 Pulse 70 02/15/21 11:19 Respiratory Rate 18 02/15/21 11:19 Blood Pressure 160/73 H 02/15/21 11:19 Pulse Oximetry 90 L 02/15/21 11:19 Temperature 36.6 C 02/15/21 11:19 Temperature Source Temporal Artery Scan 02/15/21 11:19 Pulse 70 02/15/21 11:19 Respiratory Rate 18 02/15/21 11:19 Blood Pressure 160/73 H 02/15/21 11:19 Blood Pressure Position Sitting 02/15/21 11:19 Pulse Oximetry 90 L 02/15/21 11:19 Oxygen Delivery Method Room Air 02/15/21 11:19 Oxygen Flow Rate 0 02/15/21 11:19
[2021-02-15 12:01] LABS: Abs Immature Grans 0.03 10^3/uL (0.0-0.06); Absolute Basophil Count 0.03 10^3/uL (0.0-0.2); Absolute Eosinophil Count 0.01 10^3/uL (0.0-0.7); Absolute Lymphocyte Count 0.58 10^3/uL (1.2-3.4); Absolute Neutrophil Count 3.29 10^3/uL (1.2-6.7); Basophils % 0.6; Eosinophils % 0.2; HGB 13.5 g/dL (11.2-15.7); Immature Grans % 0.6; Lymphocytes % 12.5; MCH 33.7 pg (27.0-33.0); MCHC 32.9 % (32.0-36.0); MCV 102.2 fL (80-95); MPV 11.7 fL (8.0-11.0); Monocytes % 15.1; Nucleated RBC 0 %; Platelet Count 160 10^3/uL (130-400); RBC 4.01 10^6/uL (3.93-5.22); RDW 14.2 % (11.7-14.6); RDW-SD 54.1 fL; WBC 4.64 10^3/uL (4.4-10.8)
--- NOTE | 2021-02-15 12:13 | DI.RAD_ITS ---
Exam(s) XR PORTABLE CHEST AP EXAM: XR PORTABLE CHEST AP CLINICAL HISTORY: cough. TECHNIQUE: 2D digital imaging was performed. COMPARISON: CR CHEST 2 VIEWS PA,LAT from 09/26/[address] CHEST WO from 04/05/[address] CHEST WO from 04/05/2020 FINDINGS: Chest leads in place. Heart size is upper normal. Decreased right hemithoracic volume is noted. There is infiltrate in the right upper lobe. Also right upper pleural thickening. Left lung remains relatively clear. No left pleural effusion. IMPRESSION: Right hemithoracic findings as described above including infiltrate and pleural thickening over the a pex. Decreased right hemithoracic volume noted, as evident on prior CT scan of March 2020. DATA REPOSITORY: RADIATION DOSE DELIVERED: All CT scans at this facility use at least one of these dose optimization techniques: automated exposure control; mA and/or kV adjustment per patient size (includes targeted e xams where dose is matched to clinical indication); or iterative reconstruction.
[2021-02-15] MEDS: Albuterol 2.5 MG/3 ML INH SOLN VIAL UPD (12:16)
[2021-02-15] MEDS: methylPREDNISolone SUCC 125 MG VIAL IVP (12:17)
[2021-02-15] MEDS: Albuterol/Ipratropium 3 ML UPD VIAL UPD (12:17)
[2021-02-15 12:19] LABS: Source Nasal/Nares
[2021-02-15 12:21] LABS: ALT 28 U/L (14-59); AST 29 U/L (15-37); Alkaline Phosphatase 62 U/L (46-116); Anion Gap 7.3 mmol/L (3-11); BUN 8 mg/dL (7-18); Bilirubin, Total 0.3 mg/dL (0.2-1.0); CO2 31.7 mmol/L (21.0-32.0); CREATININE 0.7 mg/dL (0.55-1.02); Calcium 9.2 mg/dL (8.5-10.1); Chloride 99 mmol/L (98-107); Glucose 99 mg/dL (74-106); NT-proBNP 700 pg/mL (<300); Potassium 3.3 mmol/L (3.5-5.1); Sodium 138 mmol/L (136-145); Total Protein 7.2 g/dL (6.4-8.2); Troponin I < 0.05 ng/mL (<0.06)
[2021-02-15 13:15] LABS: COVID-19 PCR POSITIVE (Negative)
[2021-02-15] MEDS: cefTRIAXone 2 GM/50 ML BAG IVPB (14:41)
--- NOTE | 2021-02-15 14:46 | NUR.NOTE ---
Nursing Note: Crys [phone] daughter
[2021-02-15 14:59] LABS: Troponin I < 0.05 ng/mL (<0.06)
[2021-02-15] MEDS: AZITHROMYCIN 500 MG in Normal Saline 250 ML 250 MG IVPB (16:44)
--- NOTE | 2021-02-15 17:13 | W.PM.HP.N ---
Date of service: 02/15/21 Time of Service: 17:13 Assessment and Plan Assessment and plan (1) COVID: Status: Acute Assessment and plan: monitor daily CBC,CMP, CRP; encourage patient to prone; oxygen, iv decadron, high dose atorvastatin, full anticoagulation, iv antibiotics (Rocephin and aithromycin), if procalcitonin remains normal and CRP remains low and she is afebrile then consider dc antibiotics after 5 days. patient to receive tocilizumab. (2) Pneumonia: Status: Acute Assessment and plan: antibiotics, oxygen and steroids as above; add acapella to promote pulmonary toiletry; encourage patient to prone Qualifiers: Pneumonia type: due to unspecified organism Laterality: right Lung location: upper lobe of lung Qualified Code(s): J18.9 - Pneumonia, unspecified organism (3) COPD (chronic obstructive pulmonary disease): Status: Chronic Assessment and plan: as above Qualifiers: COPD type: COPD with acute lower respiratory infection Qualified Code(s): J44.0 - Chronic obstructive pulmonary disease with (acute) lower respiratory infection (4) Hypertension: Status: Chronic Assessment and plan: continue metoprolol Qualifiers: Hypertension type: primary hypertension Qualified Code(s): I10 - Essential (primary) hypertension (5) DVT prophylaxis: Status: Acute Assessment and plan: full anticoagulation w/ lovenox History of Present Illness History of Present Illness Chief Complaint: dyspnea Narrative: 85 yr old female former smoker w/ PMH COPD, aortic stenosis, HTN, lung CA (s/p R. lobectomy), who had been vaccinated w/ the Moderna vaccine in Aug 12 and September 09, 2020 now presents w/ dyspnea and nonproductive cough that developed over the past 4 days. Last week she had family come to [place] from [place] and [place] and other family members from around [place] and [place] came to visit. Her son went back to [place] feeling ill. She does not know who was vaccinated and who was not but she was exposed to family members and she was not wearing her mask. She has had fatigue, generalized weakness, headache and joint pains but no loss of sense of taste or smell. She was evaluated in the ER and found to have positive nasal swab for SARS-CoV-2 PCR. CXR demonstrated RUL infiltrate w/ pleural thickening. CBC did not demonstrate any leukocytosis nor anemia although she has macrocytic changes. CMP demonstrated low potassium 3.3 but otherwise normal electrolytes and normal renal function and normal LFT. Procalcitonin was less than 0.1. Troponin I was neg. x 2 sets. BNP was mildly elevated at 700 which is within her age adjusted normal. Patient was treated w/ Solumedrol 125 mg, a DuoNeb updraft and albuterol updraft (both given prior to her SARS-COV2 PCR test was found to be positive) and she was started on Rocephin. She was found to be hypoxemic on arrival w/ SPO2 90% on RA and was put on nasal cannula w/ SPO2 of 96 to 97%. She was admitted to ICU as med/surgical overflow. She will be started on decadron, full anticoagulation lovenox, and be continued on Rocephin and azithromycin and given Tocilizumab. Review of Systems All systems reviewed & are unremarkable except as noted in HPI and below PFSH Medical History (Updated 02/16/21 @ 00:53 by Paresh Barnhart) Aortic stenosis Asthma COPD (chronic obstructive pulmonary disease) Diverticulosis Hyperlipidemia Hypertension Localized osteoarthritis of right knee Lung cancer Macular degeneration Mild asthma Obesity Osteoarthritis Peripheral vascular disease Urinary incontinence Surgical History (Updated 02/16/21 @ 00:44 by Paresh Barnhart) S/P lobectomy of lung Social History (Updated 02/16/21 @ 00:45 by Paresh Barnhart) Smoking/Tobacco Use Status: Former Tobacco Use tobacco type: cigarettes Quit Date: 06/30/11 Tobacco: How many years used: 56 Smoking risk assessment performed?: Yes Alcohol Intake: current Alcohol Intake frequency: 0-2 drinks per day Alcohol type: hard liquor Drug use: Never Substance use type: does not use Do you feel safe at home: Yes Do you feel safe in your relationship?: Yes Meds Allergies and Home Medications Allergies Allergy/AdvReac Type Severity Reaction Status Date / Time venom-honey bee Allergy Severe Swelling/Ed Unverified 02/15/21 11:32 [bee venom (honey bee)] yossi Home Medications Medication Instructions Recorded Confirmed Type amlodipine 5 mg PO DAILY 12/04/12 02/15/21 History aspirin [Aspir 81] 81 mg PO DAILY 12/04/12 02/15/21 History calcium carbonate-vitamin D3 4 ea PO DAILY 12/04/12 02/15/21 History metoprolol tartrate 100 mg PO BID 12/04/12 02/15/21 History multivitamin 1 ea PO DAILY 12/04/12 02/15/21 History omega-3 fatty acids 1,000 mg PO BID 12/04/12 10/23/20 History Loratadine 10 mg PO DAILY 10/09/17 02/15/21 History atorvastatin 40 mg PO DAILY 10/09/17 02/15/21 History budesonide-formoterol [Symbicort 2 puff INHALATION BID 10/09/17 02/15/21 History 160/4.5 Mcg Inhaler] fluticasone propionate 2 spry NS DAILY 10/09/17 02/15/21 History pdzqiixt-oxuqg-lcvqq-CF borate 1 ea PO BID 10/09/17 02/15/21 History [Move Free Joint Health Tablet] levalbuterol tartrate [Xopenex Hfa] 2 puff INHALATION .Q4-6H PRN 10/09/17 02/15/21 History triamcinolone acetonide 15 gm TOPICAL BID 10/09/17 02/15/21 History gabapentin 100 mg capsule 400 mg PO DAILY cap 06/08/20 10/23/20 History mirabegron 25 mg tablet,extended 25 mg PO DAILY #90 tab 12/27/20 02/15/21 Rx release 24 hr vit C,H-Sl-peecm-lutein-zeaxan 2 cap PO DAILY 02/15/21 02/15/21 History [PreserVision AREDS-2] Exam Const General: cooperative, comfortable, no acute distress, well developed and well groomed Nutritional Appearance: average body habitus Orientation: alert, awake and oriented x3 HENMT Head: normal to inspection and no palpable skull fracture Results Imaging Chest x-ray: report reviewed Labs Result diagrams: 02/15/21 11:40 02/15/21 11:40 Labs: Laboratory Results - last 24 hr 02/15/21 02/15/21 02/15/21 11:40 11:40 12:10 WBC 4.64 RBC 4.01 Hgb 13.5 Hct 41.0 MCV 102.2 H MCH 33.7 H MCHC 32.9 RDW 14.2 Plt Count 160 MPV 11.7 H Immature Gran % 0.6 Neutrophils % 71.0 Lymphocytes % 12.5 Monocytes % 15.1 Eosinophils % 0.2 Basophils % 0.6 Nucleated RBC % 0 Absolute Neutrophils 3.29 Absolute Lymphocytes 0.58 L Absolute Monocytes 0.70 Absolute Eosinophils 0.01 Absolute Basophils 0.03 Sodium 138 Potassium 3.3 L Chloride 99 Carbon Dioxide 31.7 Anion Gap 7.3 BUN 8 Creatinine 0.7 Estimated GFR/1.73 m2 >= 60.00 Glucose 99 Calcium 9.2 Total Bilirubin 0.3 AST 29 ALT 28 Alkaline Phosphatase 62 Troponin I < 0.05 NT-Pro-B Natriuret Pep 700 H Total Protein 7.2 Albumin 3.0 L COVID-19 Source Nasal/Nares SARS-CoV-2 (PCR) POSITIVE A* 02/15/21 02/15/21 14:40 17:02 WBC RBC Hgb Hct MCV MCH MCHC RDW Plt Count MPV Immature Gran % Neutrophils % Lymphocytes % Monocytes % Eosinophils % Basophils % Nucleated RBC % Absolute Neutrophils Absolute Lymphocytes Absolute Monocytes Absolute Eosinophils Absolute Basophils Sodium Potassium Chloride Carbon Dioxide Anion Gap BUN Creatinine Estimated GFR/1.73 m2 Glucose Calcium Total Bilirubin AST ALT Alkaline Phosphatase Troponin I < 0.05 Cancelled NT-Pro-B Natriuret Pep Total Protein Albumin COVID-19 Source SARS-CoV-2 (PCR) Last Vital Signs Temp 36.6 C 02/15/21 15:09 Pulse 68 02/15/21 15:09 Resp 33 H 02/15/21 15:09 BP 128/64 02/15/21 15:09 Pulse Ox 97 02/15/21 15:09
[2021-02-15] MEDS: Enoxaparin 80 MG/0.8 ML SYR 70 MG SC (18:00)
[2021-02-15] MEDS: Dexamethasone 10 MG/ML VIAL 6 MG IVP (18:00)
[2021-02-15] MEDS: Potassium Chloride 20 MEQ TABCR 40 MEQ PO (18:01)
[2021-02-15] MEDS: Normal Saline Flush 10 ML SYR IVP (18:04)
[2021-02-15 18:08] LABS: BE 3 mmol/L (-2-3); HCO3 28 mmol/L (22-26); pCO2 48 mmHg (35-45); pH 7.38 (7.35-7.45); pO2 76 mmHg (80-105); sO2 95 % (95-98); tCO2 26 mmol/L (23-27)
[2021-02-15 18:10] LABS: FIO2L 3 L; Site Right Radial
[2021-02-15 19:22] LABS: C-Reactive Protein 5.67 mg/dL (0.0-0.3)
[2021-02-15 19:42] LABS: D-Dimer 646 ng/mlFEU (<500)
[2021-02-15 21:40] LABS: Procalcitonin < 0.1 ng/mL
[2021-02-15] MEDS: Metoprolol 50 MG TAB 100 MG PO (22:06)
[2021-02-15] MEDS: Ipratropium/Albuterol 4 GM 120 PUFF INH IH (22:06)
[2021-02-15] MEDS: Atorvastatin 40 MG TAB 80 MG PO (22:06)
[2021-02-15] MEDS: Budesonide/Formoterol 160/4.5 6 GM 60 PUFF INH IH (22:07)
[2021-02-16] VITALS (95 sets, daily range): BP systolic 95–137; BP diastolic 50–71; PULSE 48–95; RESP 0–31; TEMP 36.5; O2SAT 85–97
[2021-02-16] MEDS: Enoxaparin 80 MG/0.8 ML SYR 70 MG SC ×2 (06:34→17:30)
[2021-02-16] MEDS: Dexamethasone 4 MG/ML VIAL 6 MG IVP (07:38)
[2021-02-16] MEDS: Azithromycin 250 MG TAB PO (07:39)
[2021-02-16] MEDS: amLODIPine 5 MG TAB PO (07:39)
[2021-02-16] MEDS: Metoprolol 50 MG TAB 100 MG PO ×2 (07:39→21:05)
[2021-02-16] MEDS: Aspirin E.C. 81 MG TABEC PO (07:39)
[2021-02-16] MEDS: Multivitamin TAB 1 TAB PO (07:39)
[2021-02-16 07:50] LABS: Absolute Lymphocyte Count 0.59 10^3/uL (1.2-3.4); Absolute Monocyte Count 0.35 10^3/uL (0.1-0.8); Absolute Neutrophil Count 3.11 10^3/uL (1.2-6.7); HCT 39.1 % (36.0-46.0); HGB 12.8 g/dL (11.2-15.7); Lymphocytes % 14.6; MCH 33.5 pg (27.0-33.0); MCHC 32.7 % (32.0-36.0); MCV 102.4 fL (80-95); MPV 11.9 fL (8.0-11.0); Monocytes % 8.6; Neutrophils % 76.8; Nucleated RBC 0 %; Platelet Count 160 10^3/uL (130-400); RBC 3.82 10^6/uL (3.93-5.22); RDW 13.9 % (11.7-14.6); RDW-SD 52.9 fL; WBC 4.05 10^3/uL (4.4-10.8)
[2021-02-16 08:06] LABS: ALT 23 U/L (14-59); AST 21 U/L (15-37); Albumin 2.6 g/dL (3.4-5.0); Alkaline Phosphatase 54 U/L (46-116); Anion Gap 7.1 mmol/L (3-11); BUN 16 mg/dL (7-18); Bilirubin, Total 0.2 mg/dL (0.2-1.0); C-Reactive Protein 5.27 mg/dL (0.0-0.3); CO2 28.9 mmol/L (21.0-32.0); CREATININE 0.6 mg/dL (0.55-1.02); Chloride 106 mmol/L (98-107); Glucose 149 mg/dL (74-106); Potassium 3.8 mmol/L (3.5-5.1); Sodium 142 mmol/L (136-145); Total Protein 6.7 g/dL (6.4-8.2)
--- NOTE | 2021-02-16 09:05 | INITIAL_ITS ---
- If Service Date Differs Date of service: 02/16/21 Time of Service: 09:05 Care Management Initial Assess REASON FOR HOSPITALIZATION:: Covid 19 Pneumonia PAST MEDICAL HISTORY/PAST SURGICAL HISTORY:: Medical History (Updated 02/16/21 @ 00:53 by Paresh Barnhart). Aortic stenosis. Asthma. COPD (chronic obstructive pulmonary disease). Diverticulosis. Hyperlipidemia. Hypertension. Localized osteoarthritis of right knee. Lung cancer. Macular degeneration. Mild asthma. Obesity. Osteoarthritis. Peripheral vascular disease. Urinary incontinence. Surgical History (Updated 02/16/21 @ 00:44 by Paresh Barnhart). S/P lobectomy of lung PREVIOUS FUNCTIONAL STATUS/SOCIAL/FAMILY SUPPORTS:: Barbi lives by herself in [facility]. She drives and is independant at baseline. She worked for over 60 years at a local [employer] and retired in 2011 after she was diagnosed with cancer. She has 5 children. In particular the three daughters that live nearest to her live in [facility] and [place]. They are supportive and available to help her when she needs it. CURRENT FUNCTIONAL STATUS:: CM met with patient by phone due to her Covid 19 diagnosis she reports that she is feeling a lot better than yesterday. She would like to learn more about patient financial assistance. She is worried about the cost of her hospital stay, despite having [employer] insurance and Medicare as her out of pocket expense is usually high. CM will offer her Financial Assistance paperwork to review and fill out if she chooses. ADVANCE DIRECTIVES:: On file Has patient been provided with info about the portal/API?: Yes Did the patient sign up for the portal?: No CODE STATUS:: DNR/DNI INSURANCE COVERAGE / FINANCIAL ISSUES:: [employer] Medicare CURRENT HOME/COMMUNITY SERVICES/EQUIPMENT:: [employer] PRIMARY CARE PHYSICIAN:: Leatha Lira POTENTIAL DISCHARGE NEEDS:: Undetermined at this time. CM continues to support. PATIENT/FAMILY EDUCATION NEEDS:: Review discharge instructions and plan to follow up with community with community providers. ANTICIPATED BARRIERS TO DISCHARGE:: Undetermined at this time. CM continues to support. TRANSPORTATION:: via private vehicle with bhupendra Santos PLAN:: Undetermined at this time due to unknown trajectory of her disease process. CM continues to support.
[2021-02-16] MEDS: Budesonide/Formoterol 160/4.5 6 GM 60 PUFF INH IH ×2 (09:38→21:06)
[2021-02-16] MEDS: Ipratropium/Albuterol 4 GM 120 PUFF INH IH ×4 (09:38→21:06)
--- NOTE | 2021-02-16 13:36 | W.PM.PROGNOT ---
Date of Service Date of service: 02/16/21 Time of Service: 13:36 Assessment and Plan Assessment and plan (1) COVID: Status: Acute Assessment and plan: monitor daily CBC,CMP, CRP; encourage patient to prone; oxygen, iv decadron, high dose atorvastatin, full anticoagulation, iv antibiotics (Rocephin and aithromycin), if procalcitonin remains normal and CRP remains low and she is afebrile then consider dc antibiotics after 5 days. patient received tocilizumab yesterday (2) Pneumonia: Status: Acute Assessment and plan: antibiotics, oxygen and steroids as above; add acapella to promote pulmonary toiletry; encourage patient to prone. Patient is encouraged to be out of bed as much as possible and to walk around the room. This should help with improving ventilation perfusion mismatching. Qualifiers: Pneumonia type: due to unspecified organism Laterality: right Lung location: upper lobe of lung Qualified Code(s): J18.9 - Pneumonia, unspecified organism (3) COPD (chronic obstructive pulmonary disease): Status: Chronic Assessment and plan: as above, IV corticosteroids along with bronchodilator MDIs. Qualifiers: COPD type: COPD with acute lower respiratory infection Qualified Code(s): J44.0 - Chronic obstructive pulmonary disease with (acute) lower respiratory infection (4) Hypertension: Status: Chronic Assessment and plan: continue metoprolol Qualifiers: Hypertension type: primary hypertension Qualified Code(s): I10 - Essential (primary) hypertension (5) DVT prophylaxis: Status: Acute Assessment and plan: full anticoagulation w/ lovenox Subjective Subjective Interval history since last seen: Patient is improving. Nursing staff is weaned her down to room air and at rest her oxygen saturations remaining above 90% but with ambulation she drops into the high 80s. While I was in the room I assisted her in getting back to her bed as she was tangled up in her telemetry wires and her pulse oximetry cable. Once she got settled in bed and we got a accurate pulse oximetry tracing her SPO2 settled at 90%. She continues to receive Decadron along with IV antibiotics. She is on Rocephin 2 g IV daily along with azithromycin 250 mg daily and Decadron 6 mg daily. Patient received Actemra yesterday. She has a nonproductive cough. She denies any chest pain and denies any symptoms of dyspnea. Telemetry shows sinus rhythm. Exam Narrative Exam Narrative: Elderly white female in no acute distress she is alert and oriented person place time circumstance not tachypneic not using accessory respiratory muscles. HEENT is unremarkable. Neck is supple no JVD normal carotid pulses she has a transmitted murmur along the base of both carotids Lungs with good airflow. Right upper lobe where the infiltrate is at demonstrated some improved airflow. No rhonchi no wheezes Heart regular rate and rhythm with a grade 2-3/6 systolic murmur along the aortic outflow tract and radiating to the base of her carotids. No thrill no heave no gallop. PMI is nondisplaced Abdomen soft nontender no bruits no organomegaly. Extremities without peripheral cyanosis or edema no calf tenderness. Neuro/psychiatric: Alert and oriented person place time circumstance no facial asymmetry no dysarthric speech full extraocular motion intact no focal motor or sensory deficits. Good insight and good judgment and answers all questions appropriately and she asks very appropriate questions. Objective Last Vital Signs Temp 35.4 C L 02/15/21 15:35 Pulse 54 L 02/16/21 06:01 Resp 19 02/16/21 06:40 BP 121/65 02/16/21 06:01 Pulse Ox 91 L 02/16/21 06:40 Laboratory Results - last 24 hr 02/15/21 02/15/21 02/15/21 11:40 14:40 16:45 WBC RBC Hgb Hct MCV MCH MCHC RDW Plt Count MPV Immature Gran % Neutrophils % Lymphocytes % Monocytes % Eosinophils % Basophils % Nucleated RBC % Absolute Neutrophils Absolute Lymphocytes Absolute Monocytes Absolute Eosinophils Absolute Basophils D-Dimer 646 H ABG Sample Site ABG pH ABG pCO2 ABG pO2 ABG HCO3 ABG Total CO2 ABG O2 Saturation ABG Base Excess Oxygen Liter Flow Sodium Potassium Chloride Carbon Dioxide Anion Gap BUN Creatinine Estimated GFR/1.73 m2 Glucose Calcium Total Bilirubin AST ALT Alkaline Phosphatase Troponin I < 0.05 C-Reactive Protein Total Protein Albumin Procalcitonin < 0.1 Patient ABO/Rh Antibody Screen 02/15/21 02/15/21 02/15/21 16:45 16:45 17:02 WBC RBC Hgb Hct MCV MCH MCHC RDW Plt Count MPV Immature Gran % Neutrophils % Lymphocytes % Monocytes % Eosinophils % Basophils % Nucleated RBC % Absolute Neutrophils Absolute Lymphocytes Absolute Monocytes Absolute Eosinophils Absolute Basophils D-Dimer ABG Sample Site ABG pH ABG pCO2 ABG pO2 ABG HCO3 ABG Total CO2 ABG O2 Saturation ABG Base Excess Oxygen Liter Flow Sodium Potassium Chloride Carbon Dioxide Anion Gap BUN Creatinine Estimated GFR/1.73 m2 Glucose Calcium Total Bilirubin AST ALT Alkaline Phosphatase Troponin I Cancelled C-Reactive Protein 5.67 H Total Protein Albumin Procalcitonin Patient ABO/Rh A Negative Antibody Screen NEGATIVE 02/15/21 02/16/21 02/16/21 17:55 07:33 07:33 WBC 4.05 L RBC 3.82 L Hgb 12.8 Hct 39.1 MCV 102.4 H MCH 33.5 H MCHC 32.7 RDW 13.9 Plt Count 160 MPV 11.9 H Immature Gran % 0.0 Neutrophils % 76.8 Lymphocytes % 14.6 Monocytes % 8.6 Eosinophils % 0.0 Basophils % 0.0 Nucleated RBC % 0 Absolute Neutrophils 3.11 Absolute Lymphocytes 0.59 L Absolute Monocytes 0.35 Absolute Eosinophils 0.00 Absolute Basophils 0.00 D-Dimer ABG Sample Site Right Radial ABG pH 7.38 ABG pCO2 48 H ABG pO2 76 L ABG HCO3 28 H ABG Total CO2 26 ABG O2 Saturation 95 ABG Base Excess 3 Oxygen Liter Flow 3 Sodium 142 Potassium 3.8 Chloride 106 Carbon Dioxide 28.9 Anion Gap 7.1 BUN 16 D Creatinine 0.6 Estimated GFR/1.73 m2 >= 60.00 Glucose 149 H Calcium 9.0 Total Bilirubin 0.2 AST 21 ALT 23 Alkaline Phosphatase 54 Troponin I C-Reactive Protein 5.27 H Total Protein 6.7 Albumin 2.6 L Procalcitonin Patient ABO/Rh Antibody Screen
[2021-02-16] MEDS: cefTRIAXone 2 GM/50 ML BAG IVPB (14:23)
[2021-02-16] MEDS: Normal Saline 500 ML 30 ML IV (14:24)
[2021-02-16] MEDS: Acetaminophen 325 MG TAB PO (21:05)
[2021-02-16] MEDS: Atorvastatin 40 MG TAB 80 MG PO (21:05)
[2021-02-16] MEDS: Mirabegron 25 MG TABCR PO (21:05)
[2021-02-16] MEDS: Calcium 600mg/Vit D 200U TAB 2 TAB PO (21:05)
[2021-02-17] VITALS (52 sets, daily range): BP systolic 123; BP diastolic 54; PULSE 40–94; RESP 18–20; TEMP 35.9–36.5; O2SAT 90–95
[2021-02-17] MEDS: Enoxaparin 80 MG/0.8 ML SYR 70 MG SC (06:14)
[2021-02-17] MEDS: Budesonide/Formoterol 160/4.5 6 GM 60 PUFF INH IH (09:00)
[2021-02-17] MEDS: Azithromycin 250 MG TAB PO (09:04)
[2021-02-17] MEDS: Multivitamin TAB 1 TAB PO (09:04)
[2021-02-17] MEDS: Dexamethasone 4 MG/ML VIAL 6 MG IVP (09:05)
[2021-02-17] MEDS: amLODIPine 5 MG TAB PO (09:05)
[2021-02-17] MEDS: Aspirin E.C. 81 MG TABEC PO (09:05)
[2021-02-17] MEDS: Normal Saline Flush 10 ML SYR IVP (09:05)
[2021-02-17] MEDS: Metoprolol 50 MG TAB 100 MG PO (09:05)
[2021-02-17] MEDS: Ipratropium/Albuterol 4 GM 120 PUFF INH IH (09:58)
--- NOTE | 2021-02-17 10:47 | DSE_ITS ---
Date of service: 02/17/21 Time of Service: 10:47 DS: Diagnosis Discharge Diagnosis (1) COVID: Status: Acute (2) Pneumonia: Status: Acute (3) COPD (chronic obstructive pulmonary disease): Status: Chronic (4) Hypertension: Status: Chronic (5) DVT prophylaxis: Status: Acute Discharge Plan Disposition Patient Disposition: HOME Condition: Improving Discharge Details Reason For Visit: COVID-19 Pnuemonia Admit Date/Time: 02/15/21 14:19 Admit Provider: Paresh Barnhart Attending Provider: Paresh Barnhart Primary Care Provider: Leatha Lira [facility] Course Hospital Course: 85 yr old female former smoker w/ PMH COPD, aortic stenosis, HTN, lung CA (s/p R. lobectomy), who had been vaccinated w/ the Moderna vaccine on Aug 12 and September 09, 2020 now presents w/ dyspnea and nonproductive cough that developed over the past 4 days. Last week she had family come to [place] from [place] and [place] and other family members from around [place] and [place] came to visit. Her son went back to [place] feeling ill. She does not know who was vaccinated and who was not but she was exposed to family members and she was not wearing her mask. She has had fatigue, generalized weakness, headache and joint pains but no loss of sense of taste or smell. She was evaluated in the ER and found to have positive nasal swab for SARS-CoV-2 PCR. CXR demonstrated RUL infiltrate w/ pleural thickening. CBC did not demonstrate any leukocytosis nor anemia although she has macrocytic changes. CMP demonstrated low potassium 3.3 but otherwise normal electrolytes and normal renal function and normal LFT. Procalcitonin was less than 0.1. Troponin I was neg. x 2 sets. BNP was mildly elevated at 700 which is within her age adjusted normal. Patient was treated w/ Solumedrol 125 mg, a DuoNeb updraft and albuterol updraft (both given prior to her SARS-COV2 PCR test was found to be positive) and she was started on Rocephin. She was found to be hypoxemic on arrival w/ SPO2 90% on RA and was put on nasal cannula w/ SPO2 of 96 to 97%. She was admitted to ICU as med/surgical overflow. She will be started on decadron, full anticoagulation lovenox, and be continued on Rocephin and azithromycin and given Tocilizumab. Her clinical course improved and she was weaned from supplemental oxygen. She will complete a course of oral antibiotics, Cefdinir and azithromycin, and a 3 day burst of steroids at home. Her atorvastatin was changed from her home dose of 40mg daily to 80 mg daily. She will proceed with isolation precautions for another 4 days. Follow up with PCP in 1 week. Home Meds and New Rx's Prescriptions: New atorvastatin 80 mg tablet 80 mg PO QPM Qty: 30 RF: 0 azithromycin 250 mg Tablet 250 mg PO DAILY Qty: 3 RF: 0 dexamethasone 6 mg tablet 6 mg PO DAILY Qty: 3 RF: 0 cefdinir 300 mg capsule 300 mg PO BID Qty: 10 RF: 0 Continued Myrbetriq 25 mg tablet extended release 24 hr 25 mg PO DAILY Qty: 90 RF: 3 omega-3 fatty acids 1,000 MG capsule 1,000 mg PO BID RF: 0 metoprolol tartrate 100 MG tablet 100 mg PO BID RF: 0 amlodipine 5 MG tablet 5 mg PO DAILY RF: 0 calcium carbonate-vitamin D3 1 EACH tablet 4 ea PO DAILY RF: 0 aspirin [Aspir-81] 81 MG tablet,delayed release (DR/EC) 81 mg PO DAILY RF: 0 multivitamin 1 EACH capsule 1 ea PO DAILY RF: 0 triamcinolone acetonide 15 GM cream 15 gm Topical BID RF: 0 fluticasone propionate 15.8 ML spray,suspension 2 spry NS DAILY RF: 0 levalbuterol tartrate [Xopenex HFA] 200 PUFF HFA aerosol inhaler 2 puff Inhalation .Q4-6H PRN RF: 0 budesonide-formoterol [Symbicort] 60 PUFF HFA aerosol inhaler 2 puff Inhalation BID RF: 0 Move Free [employer] 1 EACH tablet 1 ea PO BID RF: 0 Loratadine 10 MG capsule 10 mg PO DAILY RF: 0 PreserVision AREDS-2 250-90-40-1 mg Capsule 2 cap PO DAILY RF: 0 Discontinued atorvastatin 40 MG tablet 40 mg PO DAILY RF: 0 No Action gabapentin 100 mg capsule 400 mg PO DAILY RF: 0 Discharge Instructions Instructions: COVID-19: Slow the Coronavirus Spread (DC) Activity:: Activity as Tolerated Equipment/Supplies:: No Equipment Needed Diet:: Heart Healthy Discharge Orders Discharge Orders: Discharge Order (Routine); Ordered 02/17/21 Ordered By: Yvan Pope DS: Summary Time Spent with Patient providing and/or coordinating discharge services: Greater than 30 minutes Status at Discharge Functional status at discharge: independent ambulation Overall status at discharge: patient is progressing back to baseline Mental Status: mental status grossly normal Speech and Movement: speech and movement normal Mood: congruent mood Affect: blunted Exam Psych Mental Status: mental status grossly normal Speech and Movement: speech and movement normal Mood: congruent mood Affect: blunted DS: Data Vitals/I&O Vitals and I&O: Vital Signs Temperature 35.9 C L 02/17/21 09:00 Temperature Source Temporal Artery Scan 02/17/21 09:00 Pulse 69 02/17/21 09:00 Pulse Rhythm Regular 02/17/21 02:21 Pulse 51 L 02/17/21 08:00 Respiratory Rate 20 02/17/21 09:00 Respiratory Effort Non-Labored 02/17/21 02:21 Respiratory Depth Normal 02/17/21 02:21 Respiratory Pattern Normal 02/17/21 02:21 Blood Pressure 123/54 L 02/17/21 02:26 Blood Pressure Mean 78 02/16/21 06:01 Blood Pressure Position Supine 02/15/21 15:35 Pulse Oximetry 95 02/17/21 09:00 Oxygen Delivery Method Room Air 02/17/21 09:00 Oxygen Flow Rate 0 02/17/21 09:00 Pain Level 0 02/17/21 09:00 Intake & Output 02/16/21 02/16/21 02/17/21 11:59 23:59 11:59 Intake Total 360 / 1121 761 / 1121 Output Total 600 / 600 Balance -240 / 521 761 / 521 Intake: IV 360 / 471 111 / 471 Oral 650 / 650 Output: Urine 600 / 600 Other: Urine Color Yellow Urine Appearance Clear Clear Clear Urine Odor None Stool Size Moderate Stool Characteristics Soft Brown Voiding Methods Bedside Commode Data Completed and Pending Labs on day of discharge: 02/16/21 23:00 Sputum Sputum Culture - Pending Preliminary micro results at discharge 02/16/21 23:00 Sputum Culture - Pending Sputum 02/15/21 13:50 Blood Culture - Preliminary Blood NO GROWTH 24 HOURS 02/15/21 13:50 Blood Culture - Preliminary Blood NO GROWTH 24 HOURS [facility] Medical History Aortic stenosis Asthma COPD (chronic obstructive pulmonary disease) Diverticulosis Hyperlipidemia Hypertension Localized osteoarthritis of right knee Lung cancer Macular degeneration Mild asthma Obesity Osteoarthritis Peripheral vascular disease Urinary incontinence Surgical History S/P lobectomy of lung Social History Smoking/Tobacco Use Status: Former Tobacco Use tobacco type: cigarettes Quit Date: 06/30/11 Tobacco: How many years used: 56 Smoking risk assessment performed?: Yes Alcohol Intake: current Alcohol Intake frequency: 0-2 drinks per day Alcohol type: hard liquor Drug use: Never Substance use type: does not use Do you feel safe at home: Yes Do you feel safe in your relationship?: Yes
== END 2021-02-17 12:39 | disposition home or self-care (01) | DRG 177 ==
LOC: ER 15:22 → ICU 15:53
PROVIDERS: Admitting Provider Internal Medicine; Emergency Provider Physician Assistant; PCP Family Medicine; Visit Provider Internal Medicine
DX: U07.1 COVID-19 (principal); J18.9 Pneumonia, unspecified organism; J44.0 Chronic obstructive pulmonary disease with (acute) lower respiratory infection; I10 Essential (primary) hypertension; Z87.891 Personal history of nicotine dependence; I35.0 Nonrheumatic aortic (valve) stenosis; Z85.118 Personal history of other malignant neoplasm of bronchus and lung; Z90.2 Acquired absence of lung [part of]; R09.02 Hypoxemia; K57.90 Diverticulosis of intestine, part unspecified, without perforation or abscess without bleeding; E78.5 Hyperlipidemia, unspecified; M17.11 Unilateral primary osteoarthritis, right knee; I73.9 Peripheral vascular disease, unspecified; R32 Unspecified urinary incontinence
CPT/HCPCS: 36415; 80053; 82805; 84145; 86850; 86900; 86901; 87040; 87635; 93005; 94640; 96365; 96375; 99285; 71045; 83880; 84484; 85025; 85379; 86140; 87070; 87205; 93010; 99223; 99232; 99239; J0456; J1100; J1650; J2930; J3262; J3490; J7613; J7620

== ENCOUNTER 2021-02-19 10:04 | Inpatient (IN) | payer MEDICARE, OTHER, SELFPAY ==
[2021-02-19] VITALS (54 sets, daily range): BP systolic 83–140; BP diastolic 51–74; PULSE 50–104; RESP 10–40; TEMP 32–37; O2SAT 82–94
--- NOTE | 2021-02-19 10:00 | RT.EKG_ITS ---
APPROVED REPORT Exam: Resting ECG Reason for Exam: covid + sob Patient Location: E HR:100 bpm ECG Measurements Heart Rate 100 AXIS AR 156 P 45 QRSd 101 QRS -43 QT 357 T 94 QTc 461 Conclusion Sinus tachycardia Left anterior fascicular block.. LVH with secondary repolarization abnormality...multi-LVH criteria, abnrm ST-T
--- NOTE | 2021-02-19 10:23 | DI.CT_ITS ---
Exam(s) CT CHEST PE CTA EXAM: CT CHEST PE CTA CLINICAL HISTORY: sob/Covid +. TECHNIQUE: Imaging Protocol: CT angiography of the chest was performed using pulmonary embolus brionna col. Multi planar reconstructions were performed. CONTRAST MATERIAL: Intravenous: Omnipaque 350 Contrast volume: 100 cc COMPARISON: CT CT CHEST W from 10/29/[address] CHEST WO from 08/31/2020 CR XR PORTABLE CHEST AP from 02/15/2021 FINDINGS: CHEST: PULMONARY ARTERIES: There are no intraluminal filling defects to suggest acute pulmonary emboli. LUNGS: There has been deterioration in the appearance of the lungs. There is now extensive infiltrat e throughout the left upper lobe involving also the lingular segment and there is also infiltrate inv olving the basal segments of the left lower lobe. No pleural effusion on the left side. No prominen t mucous in the mainstem bronchus and more peripheral bronchi. In the right lung there is again noted decreased right hemithoracic volume. There is now a loculated pleural effusion in over the upper lobe region which accounts for the finding on the recent chest ra diograph. There is no overlying rib destruction. There is significant infiltrate in the right lung, more so than previous. There is no pleural effusion in dependent aspect of the right pleural space. No significant mucus in the mainstem bronchus. MEDIASTINUM: Left hilum appears unremarkable. No adenopathy in the anterior mediastinal fat. Infilt rate and pleural fluid is contiguous with the right hilum so cannot exclude presence of right hilar a denopathy. There is no prominent subcarinal adenopathy. CARDIAC: Cardiomegaly. Coronary artery calcification. No shift of the interventricular septum. No evidence of aortic dissection. Diameter of the thoracic aorta is upper normal.Caliber of the thoraci c aorta is within normal limits. There is no significant shift of the interventricular septum. PARTIALLY VISUALIZED UPPERMOST ABDOMEN: Adrenal glands are not included in the field of view of this study. OSSEOUS: No significant osseous lesions.. IMPRESSION: 1. Although there is no evidence of acute pulmonary emboli, there is increasing infiltrate throughout both lungs and there is a loculated right-sided pleural effusion over the posterior and superior asp ect of the right upper lobe..There is no overlying rib destruction. 2. No significant mucus in the trachea and mainstem bronchi. 3. Cardiomegaly. No pericardial effusion. No shift of the interventricular septum. No aortic disse ction. RADIATION DOSE DELIVERED: 450.5mGy.cm Total DLP DATA REPOSITORY: All CT scans at this facility are submitted to the National Radiology Data Registry (NRDR) Dose Index Registry (DIR) with the [employer] (A[employer]). RADIATION OPTIMIZATION: All CT scans at this facility use at least one of these dose optimization te chniques: automated exposure control; mA and/or kV adjustment per patient size (includes targeted exa ms where dose is matched to clinical indication); or iterative reconstruction.
--- NOTE | 2021-02-19 10:29 | ED.GENADUL_ITS ---
Discharge Plan Disposition Patient Disposition: [facility] INPATIENT Condition: Serious Discharge Details Clinical Impression: COVID, Hypoxia, Pneumonia, Loculated pleural effusion Primary Care Provider: Leatha Lira ED Provider: Paresh Rosas Home Meds and New Rx's Prescriptions: No Action Myrbetriq 25 mg tablet extended release 24 hr 25 mg PO DAILY Qty: 90 RF: 3 gabapentin 100 mg capsule 400 mg PO DAILY RF: 0 omega-3 fatty acids 1,000 MG capsule 1,000 mg PO BID RF: 0 metoprolol tartrate 100 MG tablet 100 mg PO BID RF: 0 amlodipine 5 MG tablet 5 mg PO DAILY RF: 0 calcium carbonate-vitamin D3 1 EACH tablet 4 ea PO DAILY RF: 0 aspirin [Aspir-81] 81 MG tablet,delayed release (DR/EC) 81 mg PO DAILY RF: 0 multivitamin 1 EACH capsule 1 ea PO DAILY RF: 0 triamcinolone acetonide 15 GM cream 15 gm Topical BID RF: 0 fluticasone propionate 15.8 ML spray,suspension 2 spry NS DAILY RF: 0 levalbuterol tartrate [Xopenex HFA] 200 PUFF HFA aerosol inhaler 2 puff Inhalation .Q4-6H PRN RF: 0 budesonide-formoterol [Symbicort] 60 PUFF HFA aerosol inhaler 2 puff Inhalation BID RF: 0 Move Free [employer] 1 EACH tablet 1 ea PO BID RF: 0 Loratadine 10 MG capsule 10 mg PO DAILY RF: 0 PreserVision AREDS-2 250-90-40-1 mg Capsule 2 cap PO DAILY RF: 0 atorvastatin 80 mg tablet 80 mg PO QPM Qty: 30 RF: 0 azithromycin 250 mg Tablet 250 mg PO DAILY Qty: 3 RF: 0 dexamethasone 6 mg tablet 6 mg PO DAILY Qty: 3 RF: 0 cefdinir 300 mg capsule 300 mg PO BID Qty: 10 RF: 0 Medical Decision Making 85-year-old female, multiple comorbidities, recently diagnosed with Covid, discharged from our facility 2 days ago, only able to fill one of her antibiotics otherwise is still in her medications today, presents to the ER for evaluation of worsening dyspnea. EMS reports 44% O2 saturation and cyanosis upon arrival, 90% with 15 L nonrebreather. Patient appears to be in mild respiratory distress, but is able to speak in at least 5 word sentences. She has decreased breath sounds throughout. Slightly tachypneic. Given her recent diagnosis of Covid will initiate another septic work-up, give 10 IV Decadron, give a DuoNeb, albuterol neb, but will not repeat a Covid as she was already positive. Patient was changed over from a nonrebreather to high flow oxygen, humidified, 60 L at 80%. O2 sats between 90 and 93% O2 sats began to decrease into the 80s, patient placed in the prone position Laboratory values reveal a normal white cell count of 5.75 hemoglobin 13.9 hematocrit 43.3 platelet count 158, coags normal, did not obtain D-dimer as I will go straight to a CTA. ABG reveals pH of 7.46, PO2 65, VBG 1.6, potassium 3.2 GFR greater than 60, magnesium 1.6. Will provide 1 g IV magnesium and 10 IV potassium, troponin less than 0.05. BNP slightly elevated at 808. Procalcitonin less than 0.1. Awaiting CTA results. Patient returned from CT after being prone, O2 sats are again in the low 90s. There is no significant change in her breath sounds after treatment. I received a call from our hospitalist team, Dr. Pope, CTA pending but he is agreeable to admission to our ICU. Currently the ICU is full but plan for a discharge later in the day, patient will be held in the ER. During my conversation with the hospitalist team the CTA did result and we discussed this, increasing infiltrates throughout both lungs and there is a loculated right sided pleural effusion. No PE. He is still agreeable to admission and will request a pulmonology consultation. Medical Records Medical records reviewed: Yes I reviewed the patient's medical records. Imaging Data Radiologic Study: Attestation: I personally reviewed and interpreted this imaging study as follows: Imaging: CT Scan Radiologist's impression: Exam(s) CT CHEST PE CTA EXAM: CT CHEST PE CTA CLINICAL HISTORY: sob/Covid +. TECHNIQUE: Imaging Protocol: CT angiography of the chest was performed using pulmonary embolus protocol. Multi planar reconstructions were performed. CONTRAST MATERIAL: Intravenous: Omnipaque 350 Contrast volume: 100 cc COMPARISON: CT CT CHEST W from 10/29/[address] CHEST WO from 08/31/2020 CR XR PORTABLE CHEST AP from 02/15/2021 FINDINGS: CHEST: PULMONARY ARTERIES: There are no intraluminal filling defects to suggest acute pulmonary emboli. LUNGS: There has been deterioration in the appearance of the lungs. There is now extensive infiltrate throughout the left upper lobe involving also the lingular segment and there is also infiltrate involving the basal segments of the left lower lobe. No pleural effusion on the left side. No prominent mucous in the mainstem bronchus and more peripheral bronchi. In the right lung there is again noted decreased right hemithoracic volume. There is now a loculated pleural effusion in over the upper lobe region which accounts for the finding on the recent chest radiograph. There is no overlying rib destruction. There is significant infiltrate in the right lung, more so than previous. There is no pleural effusion in dependent aspect of the right pleural space. No significant mucus in the mainstem bronchus. MEDIASTINUM: Left hilum appears unremarkable. No adenopathy in the anterior mediastinal fat. Infiltrate and pleural fluid is contiguous with the right hilum so cannot exclude presence of right hilar adenopathy. There is no prominent subcarinal adenopathy. CARDIAC: Cardiomegaly. Coronary artery calcification. No shift of the interventricular septum. No evidence of aortic dissection. Diameter of the thoracic aorta is upper normal.Caliber of the thoracic aorta is within normal limits. There is no significant shift of the interventricular septum. PARTIALLY VISUALIZED UPPERMOST ABDOMEN: Adrenal glands are not included in the field of view of this study. OSSEOUS: No significant osseous lesions.. IMPRESSION: 1. Although there is no evidence of acute pulmonary emboli, there is increasing infiltrate throughout both lungs and there is a loculated right-sided pleural effusion over the posterior and superior aspect of the right upper lobe..There is no overlying rib destruction. 2. No significant mucus in the trachea and mainstem bronchi. 3. Cardiomegaly. No pericardial effusion. No shift of the interventricular septum. No aortic dissection. Lab Data Lab results reviewed: Yes I reviewed the patient's lab results. Labs: 02/19/21 11:54 Blood Blood Culture - Pending 02/19/21 11:45 Blood Blood Culture - Pending Laboratory Tests Range/Units 02/19/21 02/19/21 02/19/21 10:19 10:19 10:19 WBC (4.4-10.8) 10^3/uL RBC (3.93-5.22) 10^6/uL Hgb (11.2-15.7) g/dL Hct (36.0-46.0) % MCV (80-95) fL MCH (27.0-33.0) pg MCHC (32.0-36.0) % RDW (11.7-14.6) % Plt Count (130-400) 10^3/uL MPV (8.0-11.0) fL Immature Gran % Neutrophils % Lymphocytes % Monocytes % Eosinophils % Basophils % Nucleated RBC % % Absolute Neutrophils (1.2-6.7) 10^3/uL Absolute Lymphocytes (1.2-3.4) 10^3/uL Absolute Monocytes (0.1-0.8) 10^3/uL Absolute Eosinophils (0.0-0.7) 10^3/uL Absolute Basophils (0.0-0.2) 10^3/uL PT (9.3-11.0) sec 10.5 INR (0.9-1.1) 1.0 APTT (21.0-27.5) sec 23.5 ABG Sample Site ABG pH (7.35-7.45) ABG pCO2 (35-45) mmHg ABG pO2 (80-105) mmHg ABG HCO3 (22-26) mmol/L ABG Total CO2 (23-27) mmol/L ABG O2 Saturation (95-98) % ABG Base Excess (-2-3) mmol/L VBG Lactate (0.6-1.4) mmol/L 1.6 H Oxygen Liter Flow L FiO2 % Sodium (136-145) mmol/L 137 Potassium (3.5-5.1) mmol/L 3.2 L Chloride (98-107) mmol/L 99 Carbon Dioxide (21.0-32.0) mmol/L 31.5 Anion Gap (3-11) mmol/L 6.5 BUN (7-18) mg/dL 14 Creatinine (0.55-1.02) mg/dL 0.7 Estimated GFR/1.73 m2 (mL/min/1.73m2) >= 60.00 Glucose (74-106) mg/dL 115 H Calcium (8.5-10.1) mg/dL 8.8 Magnesium (1.8-2.4) mg/dL Total Bilirubin (0.2-1.0) mg/dL 0.2 AST (15-37) U/L 122 H ALT (14-59) U/L 85 H Alkaline Phosphatase (46-116) U/L 57 Troponin I (<0.06) ng/mL NT-Pro-B Natriuret Pep (<300) pg/mL 808 H Total Protein (6.4-8.2) g/dL 7.0 Albumin (3.4-5.0) g/dL 3.0 L Procalcitonin ng/mL < 0.1 Range/Units 02/19/21 02/19/21 02/19/21 10:19 10:23 10:31 WBC (4.4-10.8) 10^3/uL 5.75 RBC (3.93-5.22) 10^6/uL 4.24 Hgb (11.2-15.7) g/dL 13.9 Hct (36.0-46.0) % 43.3 MCV (80-95) fL 102.1 H MCH (27.0-33.0) pg 32.8 MCHC (32.0-36.0) % 32.1 RDW (11.7-14.6) % 13.9 Plt Count (130-400) 10^3/uL 158 MPV (8.0-11.0) fL 12.2 H Immature Gran % 0.7 Neutrophils % 86.0 Lymphocytes % 9.4 Monocytes % 3.5 Eosinophils % 0.2 Basophils % 0.2 Nucleated RBC % % 0 Absolute Neutrophils (1.2-6.7) 10^3/uL 4.95 Absolute Lymphocytes (1.2-3.4) 10^3/uL 0.54 L Absolute Monocytes (0.1-0.8) 10^3/uL 0.20 Absolute Eosinophils (0.0-0.7) 10^3/uL 0.01 Absolute Basophils (0.0-0.2) 10^3/uL 0.01 PT (9.3-11.0) sec INR (0.9-1.1) APTT (21.0-27.5) sec ABG Sample Site Right Radial ABG pH (7.35-7.45) 7.46 H ABG pCO2 (35-45) mmHg 44 ABG pO2 (80-105) mmHg 65 L ABG HCO3 (22-26) mmol/L 31 H ABG Total CO2 (23-27) mmol/L 28 H ABG O2 Saturation (95-98) % 92 L ABG Base Excess (-2-3) mmol/L 8 H VBG Lactate (0.6-1.4) mmol/L Oxygen Liter Flow L 60 FiO2 % 80 Sodium (136-145) mmol/L Potassium (3.5-5.1) mmol/L Chloride (98-107) mmol/L Carbon Dioxide (21.0-32.0) mmol/L Anion Gap (3-11) mmol/L BUN (7-18) mg/dL Creatinine (0.55-1.02) mg/dL Estimated GFR/1.73 m2 (mL/min/1.73m2) Glucose (74-106) mg/dL Calcium (8.5-10.1) mg/dL Magnesium (1.8-2.4) mg/dL 1.6 L Total Bilirubin (0.2-1.0) mg/dL AST (15-37) U/L ALT (14-59) U/L Alkaline Phosphatase (46-116) U/L Troponin I (<0.06) ng/mL < 0.05 NT-Pro-B Natriuret Pep (<300) pg/mL Total Protein (6.4-8.2) g/dL Albumin (3.4-5.0) g/dL Procalcitonin ng/mL Range/Units 02/19/21 14:02 WBC (4.4-10.8) 10^3/uL RBC (3.93-5.22) 10^6/uL Hgb (11.2-15.7) g/dL Hct (36.0-46.0) % MCV (80-95) fL MCH (27.0-33.0) pg MCHC (32.0-36.0) % RDW (11.7-14.6) % Plt Count (130-400) 10^3/uL MPV (8.0-11.0) fL Immature Gran % Neutrophils % Lymphocytes % Monocytes % Eosinophils % Basophils % Nucleated RBC % % Absolute Neutrophils (1.2-6.7) 10^3/uL Absolute Lymphocytes (1.2-3.4) 10^3/uL Absolute Monocytes (0.1-0.8) 10^3/uL Absolute Eosinophils (0.0-0.7) 10^3/uL Absolute Basophils (0.0-0.2) 10^3/uL PT (9.3-11.0) sec INR (0.9-1.1) APTT (21.0-27.5) sec ABG Sample Site ABG pH (7.35-7.45) ABG pCO2 (35-45) mmHg ABG pO2 (80-105) mmHg ABG HCO3 (22-26) mmol/L ABG Total CO2 (23-27) mmol/L ABG O2 Saturation (95-98) % ABG Base Excess (-2-3) mmol/L VBG Lactate (0.6-1.4) mmol/L Oxygen Liter Flow L FiO2 % Sodium (136-145) mmol/L Potassium (3.5-5.1) mmol/L Chloride (98-107) mmol/L Carbon Dioxide (21.0-32.0) mmol/L Anion Gap (3-11) mmol/L BUN (7-18) mg/dL Creatinine (0.55-1.02) mg/dL Estimated GFR/1.73 m2 (mL/min/1.73m2) Glucose (74-106) mg/dL Calcium (8.5-10.1) mg/dL Magnesium (1.8-2.4) mg/dL Total Bilirubin (0.2-1.0) mg/dL AST (15-37) U/L ALT (14-59) U/L Alkaline Phosphatase (46-116) U/L Troponin I (<0.06) ng/mL < 0.05 NT-Pro-B Natriuret Pep (<300) pg/mL Total Protein (6.4-8.2) g/dL Albumin (3.4-5.0) g/dL Procalcitonin ng/mL ECG Data Attestation: I personally reviewed and interpreted this ECG (s) as follows: Prior ECG tracings: available for review Interpretation: Please see official report by Dr. Mejía. Sinus tachycardia, ventricular of 100. Left anterior fascicular block. Nonspecific ST-T wave abnormalities. No STEMI HPI General Mode of arrival: EMS . Date/Time Provider Initiated Documentation: 02/19/21 10:23 . Limitations to Documentation: no limitations . Information obtained by: patient, EMS and old records reviewed . HPI Narrative: This is an 85 year old female former smoker with a past medical history that includes COPD, aortic stenosis, HTN, lung CA (s/p R. lobectomy), who had been vaccinated w/ the Moderna vaccine on Aug 12 and September 09, 2020, diagnosed with Covid last week and discharged from our hospital 2 days ago, now presenting for worsening dyspnea. The patient was discharged from our facility, was only able to fill her cefdinir, other medication she was planning on filling today. She states that she is not on any home O2. Patient talked with her daughter on the phone this morning, daughter contacted EMS because she did not sound well. Patient admits to feeling increased fatigue, worsening shortness of breath over the past 24 hours, decreased appetite and oral intake. Per EMS, on arrival patient had an O2 sat of 44% on room air, went up to 90% on 15 L nonrebreather. Patient denies fever, headache, neck pain, chest pain, abdominal pain, nausea, vomiting, dysuria. She admits to primarily a dry cough associated with shortness of breath no matter what she does. Denies pain or swelling her legs Related Data Home Medications Medication Instructions Recorded Confirmed amlodipine 5 mg PO DAILY 12/04/12 02/19/21 aspirin [Aspir-81] 81 mg PO DAILY 12/04/12 02/19/21 calcium carbonate-vitamin D3 4 ea PO DAILY 12/04/12 02/19/21 metoprolol tartrate 100 mg PO BID 12/04/12 02/19/21 multivitamin 1 ea PO DAILY 12/04/12 02/19/21 omega-3 fatty acids 1,000 mg PO BID 12/04/12 02/19/21 Loratadine 10 mg PO DAILY 10/09/17 02/19/21 Move Free [employer] 1 ea PO BID 10/09/17 02/19/21 budesonide-formoterol [Symbicort] 2 puff INHALATION BID 10/09/17 02/19/21 fluticasone propionate 2 spry NS DAILY 10/09/17 02/19/21 levalbuterol tartrate [Xopenex HFA] 2 puff INHALATION .Q4-6H PRN 10/09/17 02/19/21 triamcinolone acetonide 15 gm TOPICAL BID 10/09/17 02/19/21 gabapentin 100 mg capsule 400 mg PO DAILY cap 06/08/20 02/19/21 mirabegron 25 mg tablet,extended 25 mg PO DAILY #90 tab 12/27/20 02/19/21 release 24 hr PreserVision AREDS-2 2 cap PO DAILY 02/15/21 02/19/21 atorvastatin 80 mg PO QPM #30 tab 02/17/21 02/19/21 azithromycin 250 mg PO DAILY #3 tab 02/17/21 02/19/21 cefdinir 300 mg PO BID #10 cap 02/17/21 02/19/21 dexamethasone 6 mg PO DAILY #3 tab 02/17/21 02/19/21 Previous Rx's Medication Instructions Recorded mirabegron 25 mg tablet,extended 25 mg PO DAILY #90 tab 12/27/20 release 24 hr atorvastatin 80 mg PO QPM #30 tab 02/17/21 azithromycin 250 mg PO DAILY #3 tab 02/17/21 cefdinir 300 mg PO BID #10 cap 02/17/21 dexamethasone 6 mg PO DAILY #3 tab 02/17/21 Allergies Allergy/AdvReac Type Severity Reaction Status Date / Time venom-honey bee Allergy Severe Swelling/Ed Unverified 02/19/21 10:17 [bee venom (honey bee)] yossi General Stated Complaint: RespSymp NICOLETTE: 2 Review of Systems Constitutional Constitutional: Reports fatigue, Denies fever(s) and Denies headache(s) Eyes Eyes: Denies change in vision ENT Ears, Nose, Mouth, and Throat: Denies headache(s) Cardiovascular Cardiovascular: Denies chest pain and Reports dyspnea Respiratory Respiratory: Reports cough and Reports dyspnea Gastrointestinal Gastrointestinal: Denies abdominal pain, Denies nausea and Denies vomiting Genitourinary Genitourinary: Denies dysuria Musculoskeletal Musculoskeletal: Denies back pain, Denies numbness and Denies tingling Integumentary/Breasts Skin/Breast: Denies rash Neurologic Neurologic: Denies headache(s), Denies numbness, Denies tingling and Reports weakness (General) Endocrine Endocrine: Reports fatigue [facility] Medical History Aortic stenosis Asthma COPD (chronic obstructive pulmonary disease) Diverticulosis Hyperlipidemia Hypertension Localized osteoarthritis of right knee Lung cancer Macular degeneration Mild asthma Obesity Osteoarthritis Peripheral vascular disease Urinary incontinence Surgical History S/P lobectomy of lung Social History Smoking/Tobacco Use Status: Former Tobacco Use tobacco type: cigarettes Quit Date: 06/30/11 Tobacco: How many years used: 56 Smoking risk assessment performed?: Yes Alcohol Intake: current Alcohol Intake frequency: 0-2 drinks per day Alcohol type: hard liquor Drug use: Never Substance use type: does not use Do you feel safe at home: Yes Do you feel safe in your relationship?: Yes Exam Const General: cooperative, no acute distress and ill appearing chronically Orientation: alert and awake [facility] Head: normal to inspection, normocephalic and atraumatic Face and sinus: normal facial exam Mouth: moist mucous membranes and moist mucous membranes abnormal (Slightly dry) Throat: posterior oropharynx normal Eyes General: appearance normal, both eyes and all related structures Conjunctivae: conjunctivae normal Neck Neck: normal visual inspection, trachea midline and supple Resp Effort & Inspection: normal respiratory effort, able to speak in complete sentences and tachypneic (Slightly) Auscultation: diminished lung sounds bilaterally throughout, rhonchi (Occasional, worse in the) and wheezes (Minimal scattered throughout) Cardio Rate: tachycardic (104) Rhythm: regular rhythm GI Palpation: soft, not firm, no guarding and nontender Back/Spine/Pelvis Back: No back tenderness Skin General skin exam: no rashes or lesions noted Neuro General: patient alert, patient awake, moves all extremities and no focal motor deficits Cognition: normal cognition Speech: speech normal Motor: muscle tone normal throughout Sensory Exam: no sensory deficits noted Extrem General: normal to inspection, full ROM, capillary refill normal, no pedal edema and no calf tenderness Psych Appearance: grossly normal Mental Status: mental status grossly normal Course Vital Signs Vital signs: Vital Signs Temperature 37.0 C 02/19/21 10:13 Pulse 102 H 02/19/21 10:13 Respiratory Rate 22 02/19/21 10:13 Pulse Oximetry 87 L 02/19/21 10:13 Temperature 37.0 C 02/19/21 10:13 Temperature Source Skin 02/19/21 10:13 Pulse 102 H 02/19/21 10:13 Respiratory Rate 22 02/19/21 10:13 Respiratory Effort 02/19/21 10:17 Respiratory Depth Normal 02/19/21 10:17 Blood Pressure Position Supine 02/19/21 10:13 Pulse Oximetry 87 L 02/19/21 10:13 Oxygen Delivery Method Non-Rebreather 02/19/21 10:13 Oxygen Flow Rate 15 02/19/21 10:13 Pain Level 0 02/19/21 10:13 Critical Care Time Critical Care Time Critical Care Time: Yes Total Critical Care Time: 45 Attestation: Upon my evaluation, this patient had a high probability of clinically significant, life-threatening deterioration due to their current medical conditions, which required my direct attention, intervention, and personal management. I have personally provided greater than 30 minutes of critical care time exclusive of the time spend on separately billable procedures. Time includes obtaining a history, examining the patient, pulse oximetry, review of laboratory data, radiology results, discussion with consultants, arranging urgent treatment with development of a management plan, evaluation of patient's response to treatment, and monitoring for potential decompensation. Interventions were performed as documented above.
[2021-02-19 10:36] LABS: BE 8 mmol/L (-2-3); HCO3 31 mmol/L (22-26); pCO2 44 mmHg (35-45); pH 7.46 (7.35-7.45); pO2 65 mmHg (80-105); sO2 92 % (95-98); tCO2 28 mmol/L (23-27)
[2021-02-19 10:40] LABS: Lactate 1.6 mmol/L (0.6-1.4)
[2021-02-19 10:41] LABS: FIO2 80 %
[2021-02-19 10:42] LABS: FIO2L 60 L; Site Right Radial
[2021-02-19 10:43] LABS: Abs Immature Grans 0.04 10^3/uL (0.0-0.06); Absolute Basophil Count 0.01 10^3/uL (0.0-0.2); Absolute Eosinophil Count 0.01 10^3/uL (0.0-0.7); Absolute Lymphocyte Count 0.54 10^3/uL (1.2-3.4); Absolute Neutrophil Count 4.95 10^3/uL (1.2-6.7); Basophils % 0.2; Eosinophils % 0.2; HCT 43.3 % (36.0-46.0); HGB 13.9 g/dL (11.2-15.7); Immature Grans % 0.7; Lymphocytes % 9.4; MCH 32.8 pg (27.0-33.0); MCHC 32.1 % (32.0-36.0); MCV 102.1 fL (80-95); MPV 12.2 fL (8.0-11.0); Monocytes % 3.5; Nucleated RBC 0 %; Platelet Count 158 10^3/uL (130-400); RBC 4.24 10^6/uL (3.93-5.22); RDW 13.9 % (11.7-14.6); RDW-SD 52.7 fL; WBC 5.75 10^3/uL (4.4-10.8)
[2021-02-19] MEDS: Normal Saline 1,000 ML 150 ML IV (10:44)
[2021-02-19] MEDS: Dexamethasone 10 MG/ML VIAL IVP (10:44)
[2021-02-19] MEDS: Omnipaque 350 MG/ML 100 ML BTL IV (10:56)
[2021-02-19 10:58] LABS: PTT Activated 23.5 sec (21.0-27.5); Prothrombin Time 10.5 sec (9.3-11.0)
[2021-02-19 11:02] LABS: ALT 85 U/L (14-59); AST 122 U/L (15-37); Alkaline Phosphatase 57 U/L (46-116); Anion Gap 6.5 mmol/L (3-11); BUN 14 mg/dL (7-18); Bilirubin, Total 0.2 mg/dL (0.2-1.0); CO2 31.5 mmol/L (21.0-32.0); CREATININE 0.7 mg/dL (0.55-1.02); Calcium 8.8 mg/dL (8.5-10.1); Chloride 99 mmol/L (98-107); Glucose 115 mg/dL (74-106); NT-proBNP 808 pg/mL (<300); Potassium 3.2 mmol/L (3.5-5.1); Sodium 137 mmol/L (136-145)
[2021-02-19 11:03] LABS: Magnesium 1.6 mg/dL (1.8-2.4)
[2021-02-19 11:08] LABS: Troponin I < 0.05 ng/mL (<0.06)
[2021-02-19 11:13] LABS: Procalcitonin < 0.1 ng/mL
[2021-02-19] MEDS: MAGNESIUM SULFATE 1 GM/100 ML BAG IVPB (12:27)
[2021-02-19] MEDS: POTASSIUM CHLORIDE 10 MEQ/100 ML BAG 100 MEQ IVPB (12:33)
[2021-02-19 14:24] LABS: Troponin I < 0.05 ng/mL (<0.06)
[2021-02-19] MEDS: REMDESIVIR 200 MG in Normal Saline 250 ML 250 MG IVPB (15:20)
[2021-02-19] MEDS: Enoxaparin 40 MG/0.4 ML SYR SC (15:21)
[2021-02-19] MEDS: Magnesium Oxide 400 MG TAB PO (15:21)
[2021-02-19 15:44] LABS: D-Dimer 1007 ng/mlFEU (<500)
[2021-02-19 15:51] LABS: Ferritin 932 ng/mL (8-252)
[2021-02-19 16:09] LABS: C-Reactive Protein 0.37 mg/dL (0.0-0.3)
[2021-02-19] MEDS: VANCOMYCIN/WATER (PEG) 1 GM/200 ML BAG IV (16:23)
--- NOTE | 2021-02-19 17:47 | W.PM.HP.N ---
Date of service: 02/19/21 Time of Service: 17:48 Assessment and Plan Assessment and plan (1) Loculated pleural effusion: Status: Acute Assessment and plan: + Covid PNA with concerns of superimposed bacterial infection. Recently hospitalized so will begin Zosyn and Vancomycin. Consult pulmonary medicine. (2) COPD (chronic obstructive pulmonary disease): Status: Chronic Assessment and plan: IV dexamethasone for COVID will be of benefit given likely COPD involvement. Cont Symbicort. PRN albuterol neb. Qualifiers: COPD type: COPD with acute lower respiratory infection Qualified Code(s): J44.0 - Chronic obstructive pulmonary disease with (acute) lower respiratory infection (3) COVID: Status: Acute Assessment and plan: Daily Dexamethasone 6mg IV Remdesivir 200mg IV now, then 100mg daily. Inflammatory markers. BiPAP Prone (4) Hypertension: Status: Chronic Assessment and plan: SBP 83 - low 100's. Hold home amlodipine. Cont metoprolol. Qualifiers: Hypertension type: primary hypertension Qualified Code(s): I10 - Essential (primary) hypertension History of Present Illness History of Present Illness Chief Complaint: Dyspnea Narrative: This is an 85 yo female that presented to [facility] on 02/15/21 for Covid pneumonia. She was treated with IV steroids, Remdesivir, Lovenox, high dose atorvastatin, Rocephin and Azithromycin. She was weaned from high flow NC to RA and discharged to home on Cefdinir and azithromycin. She was prescribed dexamethasone but the pharmacy could not provide it until the day of this current admission. She also has a h/o COPD, HTN. EMS was called to her home and reported a RA O2 saturation of 44%. A nonrebreather with 15L O2 initiated and her saturation was 90% on arrival. She was able to speak short sentences. IV decadron, a duoneb tx and an albuterol tx given. She was subsequently placed on high flow O2 at 60L at 80% and her O2 saturations were between 90-93%. WBC count normal. ABG with a pH of 7.46, pO2 65, VBG 1.6. K 3.2, Mg 1.6. IV magnesium and poteassium given. Troponin negative. BNP 808. Procalcitonin < 0.1. CTA chest: no evidence of acute pulmonary emboli, there is increasing infiltrate throughout both lungs and there is a loculated right-sided pleural effusion over the posterior and superior aspect of the right upper lobe..There is no overlying rib destruction. No fever, sputum, N/V. Admitted to the ICU. Review of Systems All systems reviewed & are unremarkable except as noted in HPI and below PFSH Medical History Aortic stenosis Asthma COPD (chronic obstructive pulmonary disease) Diverticulosis Hyperlipidemia Hypertension Localized osteoarthritis of right knee Lung cancer Macular degeneration Mild asthma Obesity Osteoarthritis Peripheral vascular disease Urinary incontinence Surgical History S/P lobectomy of lung Social History Smoking/Tobacco Use Status: Former Tobacco Use tobacco type: cigarettes Quit Date: 06/30/11 Tobacco: How many years used: 56 Smoking risk assessment performed?: Yes Alcohol Intake: current Alcohol Intake frequency: 0-2 drinks per day Alcohol type: hard liquor Drug use: Never Substance use type: does not use Do you feel safe at home: Yes Do you feel safe in your relationship?: Yes Meds Allergies and Home Medications Allergies Allergy/AdvReac Type Severity Reaction Status Date / Time venom-honey bee Allergy Severe Swelling/Ed Unverified 02/19/21 10:17 [bee venom (honey bee)] yossi Home Medications Medication Instructions Recorded Confirmed Type amlodipine 5 mg PO DAILY 12/04/12 02/19/21 History aspirin [Aspir-81] 81 mg PO DAILY 12/04/12 02/19/21 History calcium carbonate-vitamin D3 4 ea PO DAILY 12/04/12 02/19/21 History metoprolol tartrate 100 mg PO BID 12/04/12 02/19/21 History multivitamin 1 ea PO DAILY 12/04/12 02/19/21 History omega-3 fatty acids 1,000 mg PO BID 12/04/12 02/19/21 History Loratadine 10 mg PO DAILY 10/09/17 02/19/21 History Move Free Joint Health 1 ea PO BID 10/09/17 02/19/21 History budesonide-formoterol [Symbicort] 2 puff INHALATION BID 10/09/17 02/19/21 History fluticasone propionate 2 spry NS DAILY 10/09/17 02/19/21 History levalbuterol tartrate [Xopenex HFA] 2 puff INHALATION .Q4-6H PRN 10/09/17 02/19/21 History triamcinolone acetonide 15 gm TOPICAL BID 10/09/17 02/19/21 History gabapentin 100 mg capsule 400 mg PO DAILY cap 06/08/20 02/19/21 History mirabegron 25 mg tablet,extended 25 mg PO DAILY #90 tab 12/27/20 02/19/21 Rx release 24 hr PreserVision AREDS-2 2 cap PO DAILY 02/15/21 02/19/21 History atorvastatin 80 mg PO QPM #30 tab 02/17/21 02/19/21 Rx azithromycin 250 mg PO DAILY #3 tab 02/17/21 02/19/21 Rx cefdinir 300 mg PO BID #10 cap 02/17/21 02/19/21 Rx dexamethasone 6 mg PO DAILY #3 tab 02/17/21 02/19/21 Rx Exam Narrative Exam Narrative: Lying on right side. CPAP in place. Const General: cooperative and no acute distress Nutritional Appearance: average body habitus Orientation: alert Eyes Sclera: sclerae normal Pupils: PERRL Neck Neck: no JVD Resp Effort & Inspection: normal respiratory effort Auscultation: diminished lung sounds and rhonchi (Intermittent) Cardio Rate: regular rate Rhythm: regular rhythm Heart Sounds: S1 normal and S2 normal GI Palpation: soft and nontender Skin General skin exam: no rashes or lesions noted Extrem General: no pedal edema and no calf tenderness Results Labs Result diagrams: 02/19/21 10:23 02/19/21 10:19 Labs: Laboratory Results - last 24 hr 02/19/21 02/19/21 02/19/21 10:19 10:19 10:19 WBC RBC Hgb Hct MCV MCH MCHC RDW Plt Count MPV Immature Gran % Neutrophils % Lymphocytes % Monocytes % Eosinophils % Basophils % Nucleated RBC % Absolute Neutrophils Absolute Lymphocytes Absolute Monocytes Absolute Eosinophils Absolute Basophils PT 10.5 INR 1.0 APTT 23.5 D-Dimer ABG Sample Site ABG pH ABG pCO2 ABG pO2 ABG HCO3 ABG Total CO2 ABG O2 Saturation ABG Base Excess VBG Lactate 1.6 H Oxygen Liter Flow FiO2 Sodium 137 Potassium 3.2 L Chloride 99 Carbon Dioxide 31.5 Anion Gap 6.5 BUN 14 Creatinine 0.7 Estimated GFR/1.73 m2 >= 60.00 Glucose 115 H Calcium 8.8 Magnesium Ferritin Total Bilirubin 0.2 AST 122 H ALT 85 H Alkaline Phosphatase 57 Troponin I C-Reactive Protein NT-Pro-B Natriuret Pep 808 H Total Protein 7.0 Albumin 3.0 L Procalcitonin < 0.1 02/19/21 02/19/21 02/19/21 10:19 10:23 10:31 WBC 5.75 RBC 4.24 Hgb 13.9 Hct 43.3 MCV 102.1 H MCH 32.8 MCHC 32.1 RDW 13.9 Plt Count 158 MPV 12.2 H Immature Gran % 0.7 Neutrophils % 86.0 Lymphocytes % 9.4 Monocytes % 3.5 Eosinophils % 0.2 Basophils % 0.2 Nucleated RBC % 0 Absolute Neutrophils 4.95 Absolute Lymphocytes 0.54 L Absolute Monocytes 0.20 Absolute Eosinophils 0.01 Absolute Basophils 0.01 PT INR APTT D-Dimer ABG Sample Site Right Radial ABG pH 7.46 H ABG pCO2 44 ABG pO2 65 L ABG HCO3 31 H ABG Total CO2 28 H ABG O2 Saturation 92 L ABG Base Excess 8 H VBG Lactate Oxygen Liter Flow 60 FiO2 80 Sodium Potassium Chloride Carbon Dioxide Anion Gap BUN Creatinine Estimated GFR/1.73 m2 Glucose Calcium Magnesium 1.6 L Ferritin Total Bilirubin AST ALT Alkaline Phosphatase Troponin I < 0.05 C-Reactive Protein NT-Pro-B Natriuret Pep Total Protein Albumin Procalcitonin 02/19/21 02/19/21 02/19/21 14:02 14:55 14:55 WBC RBC Hgb Hct MCV MCH MCHC RDW Plt Count MPV Immature Gran % Neutrophils % Lymphocytes % Monocytes % Eosinophils % Basophils % Nucleated RBC % Absolute Neutrophils Absolute Lymphocytes Absolute Monocytes Absolute Eosinophils Absolute Basophils PT INR APTT D-Dimer 1007 H ABG Sample Site ABG pH ABG pCO2 ABG pO2 ABG HCO3 ABG Total CO2 ABG O2 Saturation ABG Base Excess VBG Lactate Oxygen Liter Flow FiO2 Sodium Potassium Chloride Carbon Dioxide Anion Gap BUN Creatinine Estimated GFR/1.73 m2 Glucose Calcium Magnesium Ferritin 932 H Total Bilirubin AST ALT Alkaline Phosphatase Troponin I < 0.05 C-Reactive Protein 0.37 H NT-Pro-B Natriuret Pep Total Protein Albumin Procalcitonin Last Vital Signs Temp 37.0 C 02/19/21 10:13 Pulse 89 02/19/21 17:33 Resp 39 H 02/19/21 17:40 BP 106/59 L 02/19/21 17:33 Pulse Ox 89 L 02/19/21 17:40
--- NOTE | 2021-02-19 17:52 | RESPIRATORY ---
Pt placed on HHFNC and tolerates well, very agreeable to proning. In ICU pt placed on cpap and is tolerating well. Peep of 10 brought Bp down to @ 80/50, peep decreased to 8 and Bp back up @ 107/60. Pt is stable, resting, tolerting well
[2021-02-19] MEDS: Atorvastatin 40 MG TAB 80 MG PO (20:07)
[2021-02-19] MEDS: Metoprolol 50 MG TAB 100 MG PO (20:08)
[2021-02-19] MEDS: Lactated Ringers 1,000 ML 75 ML IV (20:45)
[2021-02-20] VITALS (121 sets, daily range): BP systolic 58–160; BP diastolic 30–136; PULSE 34–89; RESP 0–40; TEMP 31–36.7; O2SAT 85–98
[2021-02-20] MEDS: Lactated Ringers 500 ML 250 ML IV ×2 (01:14→01:16)
--- NOTE | 2021-02-20 02:00 | DI.RAD_ITS ---
Exam(s) XR PORTABLE CHEST AP POST LINE EXAM: XR PORTABLE CHEST AP POST LINE CLINICAL HISTORY: post central line insertion TECHNIQUE: 2D digital imaging was performed. COMPARISON: CR XR PORTABLE CHEST AP from 02/15/2021 CR XR PORTABLE CHEST AP from 02/15/[address] CHEST PE CTA from 02/19/2021 FINDINGS: Patient is status post placement of a right central venous catheter with the tip projecting in the lo cation of the lower SVC. The heart size within normal limits for projection. The aorta is tortuous. There are bilateral infiltrates which appear to have increased when compared with the previous exam , particularly in the right upper lobe. Right upper lobe loculated fluid is again noted. No pneumot horax. IMPRESSION: Intravenous catheter in the SVC. No pneumothorax. Worsening bilateral infiltrates. DATA REPOSITORY: RADIATION DOSE DELIVERED:
--- NOTE | 2021-02-20 03:00 | DI.VRAD_ITS ---
PROCEDURE INFORMATION: Exam: XR Chest Exam date and time: 02/20/2021 2:14 AM Age: 85 years old Clinical indication: Device placement; Patient HX: Post central line insertion TECHNIQUE: Imaging protocol: XR of the chest. Views: 1 view. COMPARISON: CR XR PORTABLE CHEST AP 02/15/2021 12:05 PM FINDINGS: Tubes, catheters and devices: Right central venous catheter tip overlies superior vena cava. Lungs: Stable right upper lung infiltrate. New nonspecific minimal reticular predominant opacities within bilateral lungs. Pleural spaces: Stable right apical pleural thickening and volume loss. Heart/Mediastinum: Unremarkable. No cardiomegaly. Bones/joints: Unremarkable. IMPRESSION: New nonspecific minimal reticular predominant opacities within bilateral lungs. Dictated and Authenticated by: Juan Manuel Gerard MD. Ordering:FÁTIMA Santoro MD
--- NOTE | 2021-02-20 03:21 | W.ED.PROC ---
Date of service: 02/20/21 Time of Service: 01:21 Procedures Central Line Placement Right IJ: Time Out Performed: Yes Patient Placed on Monitor/Pulse Ox: Yes Prep: mask, gown and gloves Central Line Prep: Chlorhexidine scrub Local Anesthetic: Lidocaine 1% Amount of anesthesia used (mL): 3 Ultrasound Used for Placement: Yes Central Line Lumen Inserted: triple Post Procedure: good blood return, all ports aspirated, flushed, capped and sutured in place with nylon Post Procedure X-Ray: tip of catheter in good position Patient Tolerated Procedure: well and no complications Complications: none Additional Comments: FINDINGS: Tubes, catheters and devices: Right central venous catheter tip overlies superior vena cava. Lungs: Stable right upper lung infiltrate. New nonspecific minimal reticular predominant opacities within bilateral lungs. Pleural spaces: Stable right apical pleural thickening and volume loss. Heart/Mediastinum: Unremarkable. No cardiomegaly. Bones/joints: Unremarkable. IMPRESSION: New nonspecific minimal reticular predominant opacities within bilateral lungs. Thank you for allowing us to participate in the care of your patient. Dictated and Authenticated by: Juan Manuel Gerard MD 02/20/2021 3:00 AM Eastern Time ([place] & [place])
[2021-02-20] MEDS: Lactated Ringers 1,000 ML 75 ML IV (06:30)
[2021-02-20 06:55] LABS: Abs Immature Grans 0.04 10^3/uL (0.0-0.06); Absolute Basophil Count 0.01 10^3/uL (0.0-0.2); Absolute Lymphocyte Count 0.74 10^3/uL (1.2-3.4); Absolute Monocyte Count 0.51 10^3/uL (0.1-0.8); Absolute Neutrophil Count 4.69 10^3/uL (1.2-6.7); Basophils % 0.2; HCT 38.4 % (36.0-46.0); HGB 12.6 g/dL (11.2-15.7); Immature Grans % 0.7; Lymphocytes % 12.4; MCH 33.2 pg (27.0-33.0); MCHC 32.8 % (32.0-36.0); MCV 101.3 fL (80-95); MPV 11.8 fL (8.0-11.0); Monocytes % 8.5; Neutrophils % 78.2; Nucleated RBC 1 %; Platelet Count 177 10^3/uL (130-400); RBC 3.79 10^6/uL (3.93-5.22); RDW 14.1 % (11.7-14.6); RDW-SD 52.9 fL; WBC 5.99 10^3/uL (4.4-10.8)
[2021-02-20] MEDS: Normal Saline Flush 10 ML SYR ×2 (07:07→08:20)
[2021-02-20 07:17] LABS: ALT 73 U/L (14-59); AST 83 U/L (15-37); Albumin 2.5 g/dL (3.4-5.0); Alkaline Phosphatase 45 U/L (46-116); Anion Gap 4.2 mmol/L (3-11); BUN 14 mg/dL (7-18); Bilirubin, Total 0.3 mg/dL (0.2-1.0); C-Reactive Protein 0.21 mg/dL (0.0-0.3); CO2 32.8 mmol/L (21.0-32.0); CREATININE 0.8 mg/dL (0.55-1.02); Calcium 7.8 mg/dL (8.5-10.1); Chloride 104 mmol/L (98-107); Glucose 134 mg/dL (74-106); Potassium 3.4 mmol/L (3.5-5.1); Sodium 141 mmol/L (136-145); Total Protein 6.1 g/dL (6.4-8.2)
[2021-02-20 07:46] LABS: D-Dimer 1214 ng/mlFEU (<500)
[2021-02-20 08:08] LABS: Ferritin 1298 ng/mL (8-252)
[2021-02-20] MEDS: VANCOMYCIN/WATER (PEG) 1 GM/200 ML BAG IV ×2 (08:18→23:25)
[2021-02-20] MEDS: Multivitamin TAB 1 TAB PO (08:19)
[2021-02-20] MEDS: Aspirin E.C. 81 MG TABEC PO (08:19)
[2021-02-20] MEDS: Dexamethasone 10 MG/ML VIAL 6 MG IVP (08:20)
[2021-02-20] MEDS: Magnesium Oxide 400 MG TAB PO (08:22)
--- NOTE | 2021-02-20 08:58 | INITIAL_ITS ---
- If Service Date Differs Date of service: 02/20/21 Time of Service: 08:58 Care Management Initial Assess REASON FOR HOSPITALIZATION:: Pneumonia, Acute Respiratory Failure PAST MEDICAL HISTORY/PAST SURGICAL HISTORY:: Medical History (Updated 02/16/21 @ 00:53 by Paresh Barnhart). Aortic stenosis. Asthma. COPD (chronic obstructive pulmonary disease). Diverticulosis. Hyperlipidemia. Hypertension. Localized osteoarthritis of right knee. Lung cancer. Macular degeneration. Mild asthma. Obesity. Osteoarthritis. Peripheral vascular disease. Urinary incontinence. Surgical History (Updated 02/16/21 @ 00:44 by Paresh Barnhart). S/P lobectomy of lung PREVIOUS FUNCTIONAL STATUS/SOCIAL/FAMILY SUPPORTS:: Barbi lives by herself in [facility]. She drives and is independent at baseline. She worked for over 60 years at a local [employer] and retired in 2011 after she was diagnosed with cancer. She has 5 children. In particular the three daughters that live nearest to her live in [facility] and [place]. They are supportive and available to help her when she needs it. CURRENT FUNCTIONAL STATUS:: Barbi is currently being treated with high flow O2, CM did not interupt patient. Barbi is scheduled for a palliative care consult with Dr. Parry this afternoon, her daughter Danielle will be available by phone ([phone]). ADVANCE DIRECTIVES:: On File, Healthcare Agent: Danielle Gamble Has patient been provided with info about the portal/API?: Yes Did the patient sign up for the portal?: No CODE STATUS:: Full Code INSURANCE COVERAGE / FINANCIAL ISSUES:: [employer]. Medicare CURRENT HOME/COMMUNITY SERVICES/EQUIPMENT:: [place] PRIMARY CARE PHYSICIAN:: Leatha Lira POTENTIAL DISCHARGE NEEDS:: Undetermined at this time. CM continues to support. PATIENT/FAMILY EDUCATION NEEDS:: Review discharge instructions and plan to follow up with community with community providers, ask me three. ANTICIPATED BARRIERS TO DISCHARGE:: Undetermined at this time. CM continues to support. TRANSPORTATION:: via private vehicle with daughter Danielle PLAN:: Undetermined at this time due to unknown trajectory of her disease process. CM continues to support.
[2021-02-20] MEDS: Budesonide/Formoterol 160/4.5 6 GM 60 PUFF INH IH (09:54)
--- NOTE | 2021-02-20 12:01 | PUCC_ITS ---
General Date of Service Date of service: 02/20/21 Time of Service: 09:00 Reason for Admission to ICU: COVID Pneumonia Assessment and Plan Assessment and plan (1) COVID: Status: Acute (2) COPD (chronic obstructive pulmonary disease): Status: Chronic Qualifiers: COPD type: COPD with acute lower respiratory infection Qualified Code(s): J44.0 - Chronic obstructive pulmonary disease with (acute) lower re spiratory infection (3) Lung cancer, middle lobe: Status: Acute (4) Respiratory failure with hypoxia: Status: Acute Qualifiers: Chronicity: acute Qualified Code(s): J96.01 - Acute respiratory failure with hypoxia (5) Shock circulatory: Status: Acute Assessment and plan: This is a critically ill 85-year-old female with history of right middle lobe lung cancer, which based on the information I gather has not been fully assessed or treated, who is admitted to the ICU with severe Covid pneumonia and shock. She is requiring extremely high levels of oxygen support as well as requiring a Levophed infusion. There has been recent literature that has shown treatment of Covid pneumonia with CPAP is superior then using high flow nasal cannula and so we will try to have her keep the CPAP on as much as possible while tolerating some breaks to high flow nasal cannula. Her chest CT is consistent with an organizing pneumonia as a known sequelae of Covid pneumonia. We will continue to treat her with remdesivir and Decadron however I am concerned that these will not improve her breathing dramatically. There is concern for an super infection with a bacterial pneumonia however her procalcitonin is low and I have an extremely low suspicion for this. That being said she is admitted to the ICU and is on vasopressors and so we will treat her for bacterial infection as well. Ultimately her survivability from this is quite low. She maintains that she would want to be put on life support if it came to that however this should be more thoroughly evaluated given her age and comorbidities if she were to go on a ventilator for Covid pneumonia there would be a slim to no chance that she would get extubated. Recommendations Pulmonary: Acute hypoxic respiratory failure - CPAP as much as possible, with breaks on HFNC - D/C IVF (dry lungs are happy lungs) - aspiration precautions RML lung cancer - unclear regarding whether this was fully treated, however she is not receiving treatment for this at this time h/o COPD - discontinue Symbicort while in ICU requiring CPAP/high O2 support - recommend Duonebs q4hr standing Cardiac: Distributive Shock - continue Levophed as needed for MAP >65 - on Decadron so any degree of cortisol deficiency is being treated - troponins negative and clinically does not appear to be in cardiogenic shock - I discontinued patients metoprolol - if Levophed requirements increase to 0.2mcg/kg/min would recommend adding vasopressin 0.03U/min Renal: No acute concerns Strict I&O's I&O: Intake & Output 02/17/21 02/18/21 02/19/21 02/20/21 23:59 23:59 23:59 23:59 Intake Total 1850 / 1850 2028.55 / 202.55 Output Total 600 / 600 1050 / 1050 Balance 1250 / 1250 978.55 / 978.55 Weight 69.5 kg 69.5 kg Daily Fluid Goal:: even to negative GI Nutrition: Ok for PO diet for now If she requires more than 0.2mcg/kg/min levophed or is started on a second agent then she should be NPO Date of Last Bowel Movement: 02/18/21 Infectious Disease: COVID-19 Pneumonia - continue Decadron 6mg daily - continue remdesivir - CRP is negative, will not redose with sarilumab - recommend stopping vancomycin unless MRSA swab is positive - ok to continue Zosyn for now, but if remaining on vancomycin, recommend switching this to cefepime for renal protection - recommend palliative care consultation and involvement of family. She continues to wish to be full code. Given her age and comorbidities the likelihood of recovery from this after requiring intubation is extremely low. There is also a very high likelihood of angela-intubation given her highly tenuous respiratory status Hematologic: No acute concerns Neurologic: No acute concerns Delerium prevention - proper day/night schedules Endocrine: No acute concern Lines: R IJ CVC Johnson PIV Prophylaxis: Lovenox Would start GI ppx, either IV Protonix or IV famotidine given vasopressor requirement Spent a total of 60 minutes with this patient during bedside assessment, goals of care conversation, precharting, rounding with nursing and respiratory therapy, coordination of care with hospitalist service, and documentation. Code Status: Resuscitation Status Full Code Subjective Critical and life-threatening events over the past 24 hours: This is an 85-year-old female who initially presented on February 15 to the for Covid pneumonia. At that time she was treated with IV steroids, are a severe, Rocephin and azithromycin. She eventually weaned from high flow nasal cannula to room air and was discharged home on cefdinir and azithromycin. She does hold a history of COPD and hypertension. Additionally she has a known right middle lobe lung cancer that seems to have been treated initially with radiation however based on her last note Dr. Dacosta recommended an EBUS as previous biopsy was nondiagnostic and it seems as though she was lost to follow-up at this point. EMS was called to her home and found her to be saturating 44%. She was placed on a nonrebreather and was 90% on arrival. In the ER she was given IV Decadron and a DuoNeb and albuterol treatment. She was then placed on high flow nasal cannula 80% and 60 L with saturations in the low 90s. Procalcitonin is negative as is her white count. On her first admission her inflammatory markers were quite elevated however on this admission her CRP is only 0.21 however her ferritin is quite increased to 1300, her does not look like this was measured during her last admission. The chest CT she had completed on 02/19/2021 shows significant multi lobar infiltrative disease consistent with Covid as well as evidence of organizing pneumonia which is a known sequelae of Covid pneumonia. This morning she states she is having a hard time breathing. She says she is not ready to . She also says that she is unable to lay on her stomach. Maritza Main was assessing her another patient's in the ICU she had a desaturation event requiring placement of CPAP to maintain a saturation in the 90s. Exam Const General: no acute distress Nutritional Appearance: well nourished [facility] Head: normocephalic Ears: external ears normal and no periauricular adenopathy General nose exam: nasal mucous membranes and turbinates normal Face and sinus: sinuses nontender Mouth: oropharynx normal and moist mucous membranes Teeth and gingiva: dentition normal Eyes General: appearance normal, both eyes and all related structures Pupils: PERRL Neck Neck: normal visual inspection and no lymphadenopathy Chest Chest: normal inspection of the chest Resp Effort & Inspection: normal respiratory effort Auscultation: rales bilaterally, no rhonchi and no wheezes Cardio Rate: regular rate Rhythm: regular rhythm Heart Sounds: S1 normal, S2 normal and no murmurs Pulses: radial pulses present bilaterally GI Inspection: normal to inspection Palpation: soft Skin General skin exam: no rashes or lesions noted Neuro General: patient alert, patient awake and patient oriented x3 Extrem General: no clubbing, cyanosis or edema Psych Mental Status: mental status grossly normal Affect: normal affect Attitude: cooperative Most Recent VS/Results Last Vital Signs Temp 36.7 C 02/20/21 08:00 Pulse 61 02/20/21 08:15 Resp 30 H 02/20/21 09:10 BP 114/44 L 02/20/21 08:15 Pulse Ox 94 02/20/21 10:44 Laboratory Results - last 24 hr 02/19/21 02/19/21 02/19/21 14:02 14:55 14:55 WBC RBC Hgb Hct MCV MCH MCHC RDW Plt Count MPV Immature Gran % Neutrophils % Lymphocytes % Monocytes % Eosinophils % Basophils % Nucleated RBC % Absolute Neutrophils Absolute Lymphocytes Absolute Monocytes Absolute Eosinophils Absolute Basophils D-Dimer 1007 H Sodium Potassium Chloride Carbon Dioxide Anion Gap BUN Creatinine Estimated GFR/1.73 m2 Glucose Calcium Ferritin 932 H Total Bilirubin AST ALT Alkaline Phosphatase Troponin I < 0.05 C-Reactive Protein 0.37 H Total Protein Albumin 02/20/21 02/20/21 02/20/21 06:30 06:30 06:30 WBC 5.99 RBC 3.79 L Hgb 12.6 Hct 38.4 MCV 101.3 H MCH 33.2 H MCHC 32.8 RDW 14.1 Plt Count 177 MPV 11.8 H Immature Gran % 0.7 Neutrophils % 78.2 Lymphocytes % 12.4 Monocytes % 8.5 Eosinophils % 0.0 Basophils % 0.2 Nucleated RBC % 1 Absolute Neutrophils 4.69 Absolute Lymphocytes 0.74 L Absolute Monocytes 0.51 Absolute Eosinophils 0.00 Absolute Basophils 0.01 D-Dimer 1214 H Sodium 141 Potassium 3.4 L Chloride 104 Carbon Dioxide 32.8 H Anion Gap 4.2 BUN 14 Creatinine 0.8 Estimated GFR/1.73 m2 >= 60.00 Glucose 134 H Calcium 7.8 L Ferritin 1298 H Total Bilirubin 0.3 AST 83 H ALT 73 H Alkaline Phosphatase 45 L Troponin I C-Reactive Protein 0.21 Total Protein 6.1 L Albumin 2.5 L Review of Systems All systems reviewed & are unremarkable except as noted in HPI and below Cardiovascular Cardiovascular: Denies chest pain at rest, Denies diaphoresis, Denies leg edema, Reports dyspnea and Reports dyspnea on exertion Respiratory Respiratory: Reports cough, Reports dyspnea and Reports dyspnea on exertion
[2021-02-20] MEDS: Enoxaparin 40 MG/0.4 ML SYR SC (13:26)
--- NOTE | 2021-02-20 15:14 | W.PM.PROGNOT ---
Date of Service Date of service: 02/20/21 Time of Service: 15:15 Assessment and Plan Assessment and plan (1) Loculated pleural effusion: Status: Acute Assessment and plan: + Covid PNA with concerns of superimposed bacterial infection. Recently hospitalized so will begin Zosyn and Vancomycin. Consult pulmonary medicine. MRSA swab pending; if negative will stop Vancomycin. Change from Zosyn to Cefepime to help avoid renal stress. (2) COPD (chronic obstructive pulmonary disease): Status: Chronic Assessment and plan: IV dexamethasone for COVID will be of benefit given likely COPD involvement. Cont Symbicort. PRN albuterol neb. Qualifiers: COPD type: COPD with acute lower respiratory infection Qualified Code(s): J44.0 - Chronic obstructive pulmonary disease with (acute) lower respiratory infection (3) COVID: Status: Acute Assessment and plan: Daily Dexamethasone 6mg IV Remdesivir 200mg IV now, then 100mg daily. Inflammatory markers. BiPAP Proning encouraged Talked to daughter Danielle. She and other siblings make pts healthcare decisions jointly. (4) Hypertension: Status: Chronic Assessment and plan: Now on Levophed after becoming hypotensive last PM; MAP as low as in the 40's. BP improved very quickly. Conts on Levophed. Holding amlodipine. Qualifiers: Hypertension type: primary hypertension Qualified Code(s): I10 - Essential (primary) hypertension Subjective Subjective Patient reports: tolerating a regular diet and afebrile Interval history since last seen: Pt spending most of the time of CPAP with intermittent breaks on high flow NC She ate lunch. She does not prone though encouraged to do so. Exam Narrative Exam Narrative: Lying on right side. CPAP in place. Const General: cooperative and no acute distress Nutritional Appearance: average body habitus Orientation: other (asleep; wakens to verbal stimuli) Eyes Sclera: sclerae normal Pupils: PERRL Neck Neck: no JVD Resp Effort & Inspection: other (CPAP in place.) Auscultation: diminished lung sounds and rhonchi (Intermittent) Cardio Rate: regular rate Rhythm: regular rhythm Heart Sounds: S1 normal and S2 normal GI Palpation: soft and nontender Skin General skin exam: no rashes or lesions noted Extrem General: no pedal edema and no calf tenderness Objective Last Vital Signs Temp 36.7 C 02/20/21 08:00 Pulse 61 02/20/21 08:15 Resp 30 H 02/20/21 09:10 BP 114/44 L 02/20/21 08:15 Pulse Ox 92 02/20/21 12:11 Laboratory Results - last 24 hr 02/19/21 02/19/21 02/20/21 14:55 14:55 06:30 WBC RBC Hgb Hct MCV MCH MCHC RDW Plt Count MPV Immature Gran % Neutrophils % Lymphocytes % Monocytes % Eosinophils % Basophils % Nucleated RBC % Absolute Neutrophils Absolute Lymphocytes Absolute Monocytes Absolute Eosinophils Absolute Basophils D-Dimer 1007 H Sodium 141 Potassium 3.4 L Chloride 104 Carbon Dioxide 32.8 H Anion Gap 4.2 BUN 14 Creatinine 0.8 Estimated GFR/1.73 m2 >= 60.00 Glucose 134 H Calcium 7.8 L Ferritin 932 H 1298 H Total Bilirubin 0.3 AST 83 H ALT 73 H Alkaline Phosphatase 45 L C-Reactive Protein 0.37 H 0.21 Total Protein 6.1 L Albumin 2.5 L 02/20/21 02/20/21 06:30 06:30 WBC 5.99 RBC 3.79 L Hgb 12.6 Hct 38.4 MCV 101.3 H MCH 33.2 H MCHC 32.8 RDW 14.1 Plt Count 177 MPV 11.8 H Immature Gran % 0.7 Neutrophils % 78.2 Lymphocytes % 12.4 Monocytes % 8.5 Eosinophils % 0.0 Basophils % 0.2 Nucleated RBC % 1 Absolute Neutrophils 4.69 Absolute Lymphocytes 0.74 L Absolute Monocytes 0.51 Absolute Eosinophils 0.00 Absolute Basophils 0.01 D-Dimer 1214 H Sodium Potassium Chloride Carbon Dioxide Anion Gap BUN Creatinine Estimated GFR/1.73 m2 Glucose Calcium Ferritin Total Bilirubin AST ALT Alkaline Phosphatase C-Reactive Protein Total Protein Albumin
[2021-02-20] MEDS: Atorvastatin 40 MG TAB 80 MG PO (19:53)
[2021-02-20] MEDS: CEFEPIME 2 GM in Normal Saline 100 ML IVPB (19:53)
--- NOTE | 2021-02-20 20:05 | PCNE_ITS ---
Date of service: 02/20/21 Time of Service: 17:06 History of Present Illness History of Present Illness Chief Complaint: covid-19 infection, severe; goals of care Narrative: I was asked by Dr Pope, hospitalist, to see Barbi Cain to elucidate her goals of care. She was admitted for COVID-19 infection from 02/15- 02/17. It appeared that she would recover at time of discharge. She had been able to maintain a normal saturation on room air, she was able to move around without severe dyspena. She wanted to go home. However, she was readmitted on 02/19 after EMS had been called to evaluate her and found her to have a reported O2 sat of 44% Please see Dr Pope's H and P for more details. At the time of my visit, she is clearly critically ill, in the ICU. She is on pressors, CPAP alternating with High Flow, antibiotics, steroids, etc. She is being co-managed by Dr Ching, psych sales specialist, and the hospitalist team. She has an Advance Directive from 2013 that lists her wishes as being DNR/DNI. On her first admission, this was her code status. I reviewed that document prior to meeting with Erick. It is unclear how she came to change her mind to FULL CODE. The nurse reported that she had heard a provider ask if Erick wanted them to do everything though everything and its chance of success were not explained in detail. When I met with Erick, she was wearing high-flow oxygen. Her nurse, Tasha, was feeding her a few bites of food. She was quite tachypneic and her oxygen dipped into the 70s from time to time. She could not speak more than a sentence at a time. She was in moderate respiratory distress throughout my visit. I asked if I could talk to her about hard things, and she said yes. I asked what she was worried about, and she said her son, who is hospitalized in an ICU in [place], and per Erick's daughter Danielle, is not doing well. (I called Danielle after my visit with Erick to update her. Danielle asked that I not tell her mother this until she has a chance to discuss this with her 4 sisters.) We talked about how sick she was, and how worried we were that she might survive this illness. Erick did not seem surprised to hear this. She nodded her understanding. We talked about the unlikelihood of her being able to survive intubation and extubation. I explained that Katelynn Ching and Niko were working as hard as they could to keep her alive. She is on maximal aggressive treatment for COVID-19. I explained that intubating her would not increase her chance of survival. We also talked about CPR and shocking. I explained that when people are as sick as she is now, their hearts do not respond well to shocking. She indicated that she agreed to DNR status as well as DNI. I later spoke to her daughter about these decisions and Danielle supported them. She also wanted to ensure that her mother was still getting aggressive treatment for COVID-19. Consults Consult date: 02/20/21 Requesting physician: Yvan Pope Assessment and Plan Assessment and plan (1) Lung cancer, middle lobe: Status: Chronic Assessment and plan: Recurrent lung cancer; first NSCLC diagnosed in [place] in 2010, treated with lobectomy. Recurrence was in December 2018. Biopsy done by Dr Tavares was inconclusive. REferred at that time to Gilberto Gil. (2) Respiratory failure with hypoxia: Status: Acute Assessment and plan: Alternating Hi Bimal and CPAP (as much as she can tolerate). Not proning. Full aggressive care short of resusciation. Qualifiers: Chronicity: acute Qualified Code(s): J96.01 - Acute respiratory failure with hypoxia (3) Palliative care patient: Status: Acute (4) Goals of care, counseling/discussion: Status: Acute (5) COVID: Status: Acute (6) Pneumonia: Status: Acute Qualifiers: Pneumonia type: due to unspecified organism Laterality: right Lung location: upper lobe of lung Qualified Code(s): J18.9 - Pneumonia, unspecified organism (7) DNR (do not resuscitate): Status: Acute (8) DNI (do not intubate): Status: Acute (9) Loculated pleural effusion: Status: Acute (10) Stress due to illness of family member: Status: Acute Assessment and plan: Her biggest concern is her son's health. Will speak to Danielle tomorrow to see how her brother is doing and what she wants the team to tell her mother about his health. Review of Systems Constitutional Constitutional: Reports body ache(s), Reports daytime sleepiness, Reports fatigue, Denies fever(s), Reports lethargy, Reports malaise, Reports poor appetite and Reports weakness Eyes Eyes: Reports dry eyes and Reports requires corrective lenses ENT Ears, Nose, Mouth, and Throat: Reports dry mouth Cardiovascular Cardiovascular: Reports dyspnea and Reports dyspnea on exertion Respiratory Respiratory: Reports cough, Reports dyspnea and Reports dyspnea on exertion Comments: tachypnea air hunger Gastrointestinal Gastrointestinal: Reports early satiety Comments: fatigued with effort of eating Genitourinary Genitourinary: Reports other (has mota) Musculoskeletal Musculoskeletal: Reports muscle weakness Neurologic Neurologic: Denies confusion, Denies memory loss and Reports weakness Psychiatric Psychiatric: Denies confusion and Denies memory loss Endocrine Endocrine: Reports fatigue [facility] Medical History (Updated 02/20/21 @ 20:44 by Hannah Parry MD) Aortic stenosis Asthma COPD (chronic obstructive pulmonary disease) Diverticulosis DNI (do not intubate) DNR (do not resuscitate) Goals of care, counseling/discussion Hyperlipidemia Hypertension Localized osteoarthritis of right knee Lung cancer Macular degeneration Mild asthma Obesity Osteoarthritis Palliative care patient Peripheral vascular disease Stress due to illness of family member only son sick with COVID-19 Urinary incontinence Surgical History S/P lobectomy of lung Family History (Updated 02/20/21 @ 20:45 by Hannah Parry MD) Son COVID-19 Respiratory failure Daughter Caregiver stress Daughter No problems noted. Daughter No problems noted. Daughter No problems noted. Daughter No problems noted. Social History (Updated 02/20/21 @ 20:49 by Hannah Parry MD) Smoking/Tobacco Use Status: Former Tobacco Use tobacco type: cigarettes Quit Date: 06/30/11 Tobacco: How many years used: 56 Smoking risk assessment performed?: Yes Alcohol Intake: current Alcohol Intake frequency: 3 or more drinks per day Alcohol type: hard liquor Counseling given: No Drug use: Never Substance use type: does not use Caregiver/Support person: Yes (daughters, Danielle is DPOA) Household members: none Number of Children: 6 Communication Needs: Corrective Lenses Education Level: high school Do you need help understanding health information?: Often current occupation: retired What is your relationship status?: How often do you talk on the phone with friends or family?: three or more times per week Panel score (0-1 are the most socially isolated patients): 1 Do you feel safe at home: Yes Do you feel safe in your relationship?: Yes Additional Social history: Danielle reported her mother is usually active; she even does [employer]. She is able to live alone without much help at all. Erick is worried that she is a burden to her daughters; Danielle adamantly says she is not a burden at all; she and her sisters work together as a team to support their mother and they have no resentment. Erick's only son lives in [place]. She is very worried about him. Danielle says he is not doing well and is in an ICU in [place]. Exam Narrative Exam Narrative: Erick was sitting up at 70 degrees (or higher) with increased WOB and tachypnea, wearing her hi-flow oxygen. She looked exhausted. She was in moderate respiratory distress. Her nurse Tasha was feeding her soft foods. It was hard for Erick to speak more than a few words at a time. She mostly nodded or shook her head to communicate. She appeared cognitively intact. Her greatest concern was for the health of her son and for being a burden to her children. We discussed what else she was worried about. I asked if she wanted to talk to a abrasive mixer helper or green plumber. She did not want to. I explained the low chance of intubation and full CPR with shocks being useful at this point in this particular illness. She indicated that she would not want intubation or CPR. She was pale. She looked weak. She did not look anxious or depressed. She was not delirious. Results Last Vital Signs Temp 97.0 F L 02/20/21 16:00 Pulse 74 02/20/21 18:18 Resp 26 H 02/20/21 18:18 BP 114/44 L 02/20/21 08:15 Pulse Ox 95 02/20/21 18:18 Labs Result diagrams: 02/20/21 06:30 02/20/21 06:30 Labs: Laboratory Results - last 24 hr 02/20/21 02/20/21 02/20/21 06:30 06:30 06:30 WBC 5.99 RBC 3.79 L Hgb 12.6 Hct 38.4 MCV 101.3 H MCH 33.2 H MCHC 32.8 RDW 14.1 Plt Count 177 MPV 11.8 H Immature Gran % 0.7 Neutrophils % 78.2 Lymphocytes % 12.4 Monocytes % 8.5 Eosinophils % 0.0 Basophils % 0.2 Nucleated RBC % 1 Absolute Neutrophils 4.69 Absolute Lymphocytes 0.74 L Absolute Monocytes 0.51 Absolute Eosinophils 0.00 Absolute Basophils 0.01 D-Dimer 1214 H Sodium 141 Potassium 3.4 L Chloride 104 Carbon Dioxide 32.8 H Anion Gap 4.2 BUN 14 Creatinine 0.8 Estimated GFR/1.73 m2 >= 60.00 Glucose 134 H Calcium 7.8 L Ferritin 1298 H Total Bilirubin 0.3 AST 83 H ALT 73 H Alkaline Phosphatase 45 L C-Reactive Protein 0.21 Total Protein 6.1 L Albumin 2.5 L
--- NOTE | 2021-02-20 20:21 | NUR.NOTE ---
Nursing Note: left message at [phone] for Neva Bacon contact tracer who was looking to reach pt's daughter. Incorrect number given for daughter earlier. Correct number for Danielle Gamble of [phone] left on voicemail at this time.
[2021-02-20] MEDS: Normal Saline Flush 10 ML SYR IVP (21:18)
[2021-02-20] MEDS: FAMOTIDINE 20 MG/50 ML BAG 200 MG IVPB (22:50)
[2021-02-20] MEDS: guaiFENesin 600 MG TABCR PO (22:51)
[2021-02-21] VITALS (90 sets, daily range): BP systolic 108–164; BP diastolic 51–125; PULSE 50–97; RESP 12–37; TEMP 31–36.3; O2SAT 85–98
[2021-02-21] MEDS: CEFEPIME 2 GM in Normal Saline 100 ML IVPB ×2 (08:58→20:13)
[2021-02-21] MEDS: guaiFENesin 600 MG TABCR PO ×2 (08:58→20:13)
[2021-02-21] MEDS: Multivitamin TAB 1 TAB PO (08:58)
[2021-02-21] MEDS: Dexamethasone 10 MG/ML VIAL 6 MG IVP (08:59)
[2021-02-21] MEDS: Normal Saline Flush 10 ML SYR IVP ×3 (08:59→22:09)
[2021-02-21] MEDS: Aspirin E.C. 81 MG TABEC PO (08:59)
[2021-02-21] MEDS: Magnesium Oxide 400 MG TAB PO (08:59)
--- NOTE | 2021-02-21 09:05 | CMPROGNOTE_ITS ---
- If Service Date Differs Date of service: 02/21/21 Time of Service: 09:05 Care Management Progress Note S/O: CM attempted to reach out to Barbi by phone three times today, however each attempt was unsuccessful as the phone just rang. Per nursing, Barbi is looking better today and is able to communicate by phone to family. Dr. Parry recommends that conversations be limited to 10 minutes max due to her respiratory status. CM continues to support. A: 85 year old female admitted to [facility] on 02/19/21 for Pneumonia, Acute Respiratory Failure P: Barbi spoke with Dr. Parry today and she continues to want aggressive treatment for Covid, but wants to be a DNR/DNI. Dr. Parry left a message for Danielle recommending that there be 1 lithography contact worker for family and asked Danielle if she could be the spokes person? Barbi continues to be monitored in the ICU. CM continues to support.
[2021-02-21] MEDS: FAMOTIDINE 20 MG/50 ML BAG 200 MG IVPB ×2 (10:24→22:09)
--- NOTE | 2021-02-21 10:25 | PUCC_ITS ---
General Date of Service Date of service: 02/21/21 Time of Service: 07:20 Reason for Admission to ICU: Covid pneumonia Assessment and Plan Assessment and plan (1) COVID: Status: Acute (2) COPD (chronic obstructive pulmonary disease): Status: Chronic Qualifiers: COPD type: COPD with acute lower respiratory infection Qualified Code(s): J44.0 - Chronic obstructive pulmonary disease with (acute) lower re spiratory infection (3) Lung cancer, middle lobe: Status: Chronic (4) Respiratory failure with hypoxia: Status: Acute Qualifiers: Chronicity: acute Qualified Code(s): J96.01 - Acute respiratory failure with hypoxia (5) Shock circulatory: Status: Acute Assessment and plan: This is a critically ill 85-year-old female with history of right middle lobe lung cancer, which based on the information I gather has not been fully assessed or treated, who is admitted to the ICU with severe Covid pneumonia and shock. She is requiring extremely high levels of oxygen support and required a Levophed infusion yesterday although she needs to not need this at this time. There has been recent literature that has shown treatment of Covid pneumonia with CPAP is superior then using high flow nasal cannula and so we will try to have her keep the CPAP on as much as possible while tolerating some breaks to high flow nasal cannula. Her chest CT is consistent with an organizing pneumonia as a known sequelae of Covid pneumonia. We will continue to treat her with remdesivir and Decadron however I am concerned that these will not improve her breathing dramatically. There is concern for an super infection with a bacterial pneumonia however her procalcitonin is low and I have an extremely low suspicion for this. That being said she is admitted to the ICU and is in severe respiratory failure and so we will treat her for bacterial infection as well. Ultimately her survivability from this is quite low even with maximal therapy, which we continue to do. Recommendations Pulmonary: Acute hypoxic respiratory failure - CPAP as much as possible, with breaks on HFNC - No IVF (dry lungs are happy lungs) - aspiration precautions RML lung cancer - unclear regarding whether this was fully treated, however she is not receiving treatment for this at this time h/o COPD - discontinue Symbicort while in ICU requiring CPAP/high O2 support - recommend Duonebs q4hr standing Cardiac: Distributive Shock - currently not requiring - continue Levophed as needed for MAP >65 - on Decadron so any degree of cortisol deficiency is being treated - troponins negative and clinically does not appear to be in cardiogenic shock - hold all blood pressure lowering medications - if Levophed requirements increase to 0.2mcg/kg/min would recommend adding vasopressin 0.03U/min Renal: No acute concerns I&O: Intake & Output 02/18/21 02/19/21 02/20/21 02/21/21 23:59 23:59 23:59 23:59 Intake Total 1850 / 1850 2865.471 / 2865.471 400 / 400 Output Total 600 / 600 1800 / 1800 700 / 700 Balance 1250 / 1250 1065.471 / 1065.471 -300 / -300 Weight 69.5 kg 69.5 kg 69.1 kg Daily Fluid Goal:: even to negative GI Nutrition: OK for diet Date of Last Bowel Movement: 02/20/21 Infectious Disease: COVID-19 Pneumonia - continue Decadron 6mg daily - continue remdesivir - CRP is negative, will not redose with sarilumab - recommend discontinuing vancomycin as MRSA nares is negative - continue cefepime for now for a total 5 day course - is now DNR/DNI Hematologic: No acute concerns Neurologic: No acute concerns Endocrine: On Decadron - check daily glucose to assess hyperglycemia in the setting of steroids Lines: R IJ CVC Johnson PIV Prophylaxis: Lovenox for DVT ppx On famotidine for GI ppx I spent a total of 30 minutes with this patient including bedside assessment, rounding with nursing and respiratory therapy, coordination of care with the hospitalist service, chart review and documentation. Code Status: Resuscitation Status DNR/DNI Subjective Critical and life-threatening events over the past 24 hours: The patient seems to have tolerated CPAP therapy overnight. There is report of her desaturating significantly when given a break to high flow nasal cannula. When I asked the patient if she feels as though she is getting better she says she does not know. Of note she met with palliative care yesterday and after their discussion decided to be DNR/DNI, which was by report her initial wishes based on a past POLST. This morning she is not requiring Levophed infusion. Exam Const General: in distress moderate and respiratory Nutritional Appearance: well nourished HENAZ Head: normocephalic Ears: external ears normal and no periauricular adenopathy General nose exam: nasal mucous membranes and turbinates normal Face and sinus: sinuses nontender Mouth: oropharynx normal and moist mucous membranes Teeth and gingiva: dentition normal Eyes General: appearance normal, both eyes and all related structures Pupils: PERRL Neck Neck: normal visual inspection and no lymphadenopathy Chest Chest: normal inspection of the chest Resp Effort & Inspection: normal respiratory effort Auscultation: rales bilaterally, no rhonchi and no wheezes Cardio Rate: regular rate Rhythm: regular rhythm Heart Sounds: S1 normal, S2 normal and no murmurs Pulses: radial pulses present bilaterally GI Inspection: normal to inspection Palpation: soft Skin General skin exam: no rashes or lesions noted Neuro General: patient alert, patient awake and patient oriented x3 Extrem General: no clubbing, cyanosis or edema Psych Mental Status: mental status grossly normal Affect: normal affect Attitude: cooperative Most Recent VS/Results Last Vital Signs Temp 36.0 C L 02/21/21 04:00 Pulse 62 02/21/21 06:02 Resp 34 H 02/21/21 06:02 BP 155/63 H 02/21/21 06:02 Pulse Ox 93 02/21/21 06:02 Review of Systems All systems reviewed & are unremarkable except as noted in HPI and below Cardiovascular Cardiovascular: Denies chest pain at rest, Denies diaphoresis, Denies leg edema, Reports dyspnea and Reports dyspnea on exertion Respiratory Respiratory: Reports cough, Reports dyspnea and Reports dyspnea on exertion
[2021-02-21 10:30] LABS: D-Dimer 1271 ng/mlFEU (<500)
[2021-02-21 10:44] LABS: BUN 14 mg/dL (7-18); C-Reactive Protein 0.05 mg/dL (0.0-0.3); CREATININE 0.6 mg/dL (0.55-1.02); Calcium 8.1 mg/dL (8.5-10.1); Chloride 103 mmol/L (98-107); Glucose 94 mg/dL (74-106); Sodium 143 mmol/L (136-145)
[2021-02-21 10:46] LABS: Ferritin 1561 ng/mL (8-252); Potassium 2.9 mmol/L (3.5-5.1)
[2021-02-21 12:10] LABS: Magnesium 2.1 mg/dL (1.8-2.4)
[2021-02-21] MEDS: Enoxaparin 40 MG/0.4 ML SYR SC (14:15)
--- NOTE | 2021-02-21 16:14 | W.PALPGNOTE ---
Date of service: 02/21/21 Assessment and Plan Assessment and plan (1) Stress due to illness of family member: Status: Acute Assessment and plan: Worried about her son. Did not speak to daughter Danielle; left message on her cell phone. Family has not told Payton that son is sick with covid and [place]. She is still very worried nonetheless. (2) Goals of care, counseling/discussion: Status: Acute Assessment and plan: Reiterated today her desire to be DNR/DNI which was how she filled out paperwork in past and what she told admitting MD on first admission. Will have her update her desires by filling out COLST prior to discharge, if she continues to improve... (3) Palliative care patient: Status: Acute Assessment and plan: Will continue to follow. Payton more able to express herself as her air hunger improves. (4) Respiratory failure with hypoxia: Status: Acute Assessment and plan: Improving. Still far from goal. Alternating between CPAP and HiFLOW. Does NOT want intubation. Qualifiers: Chronicity: acute Qualified Code(s): J96.01 - Acute respiratory failure with hypoxia (5) Bradycardia: Status: Acute Assessment and plan: HR up from 36 to 60 bpm. Would not want pacer. (6) Pneumonia: Status: Acute Assessment and plan: MRSA negative. Off vancomycin. Continuing other abx and steroids. Improving. Qualifiers: Pneumonia type: due to unspecified organism Laterality: right Lung location: upper lobe of lung Qualified Code(s): J18.9 - Pneumonia, unspecified organism (7) Oxygen dependent: Status: Acute Assessment and plan: May need at home, if she recovers. Lungs are very vulnerable given h/o lung cancer, pulmonary fibrosis, copd and covid. Thanks to Dr Simons for guiding care. Subjective Subjective Patient reports: no new complaints, feels better and shortness of breath Interval history since last seen: Having less dypnea than yesterday. FIO2 down to 50% from 70% yesterday. RR at 24-26 instead of 26-32. Able to speak in 8-10 word sentences; was at 2-4 words yesterday. Doesn't look as exhausted. Tearful today. Said that someone asked her earlier today if she wanted to be intubated and she told them no. She couldn't remember who the person was. She remembers her experience of intubation after her lobectomy. She never wants that again. I told her I would call her daughter Danielle after our visit and give her an update; I did not, but there was no answer. I left a message saying her mother appeared improved. Payton is aware that her son is hospitalized; she does not know he has COVID. I did not let her know this as the family has not wanted to share this with her. Exam Narrative Exam Narrative: Payton was sitting up in bed at 70 degrees wearing her hi-flow oxygen. She was able to talk and interact, though with effort. She asked for a glass of cold water and a box of tissues. Payton could speak up to 8-10 word sentences. She is cognitively intact. She is oriented to self and place, less clear on time. Her lungs were moving decreased air throughout. She had crackles at the bases, more on right than left. She was mildly tachypneic. Her HR was regular, on the slow side at 60. (Up from 36 yesterday). I could not appreciate a murmur. Her abdomen was overweight, soft, with hypoactive bowel sounds, NT, no masses. Extremities were cool but not mottled. Her skin was pale. She denied feeling anxious or depressed, though she is worried about her son and feels unsure about whether she will survive. She does recognize that she is better today than she was yesterday. But I felt better when I went home last time. And then look what happened. Objective Last Vital Signs Temp 97.3 F L 02/21/21 15:39 Pulse 86 02/21/21 15:39 Resp 30 H 02/21/21 15:40 BP 151/81 H 02/21/21 15:01 Pulse Ox 95 02/21/21 15:40 Laboratory Results - last 24 hr 02/21/21 02/21/21 02/21/21 09:30 09:30 09:30 D-Dimer 1271 H Sodium 143 Potassium 2.9 L Chloride 103 Carbon Dioxide 35.0 H Anion Gap 5.0 BUN 14 Creatinine 0.6 Estimated GFR/1.73 m2 >= 60.00 Glucose 94 Calcium 8.1 L Magnesium 2.1 Ferritin 1561 H C-Reactive Protein 0.05 Vancomycin Trough 02/21/21 15:00 D-Dimer Sodium Potassium Chloride Carbon Dioxide Anion Gap BUN Creatinine Estimated GFR/1.73 m2 Glucose Calcium Magnesium Ferritin C-Reactive Protein Vancomycin Trough Cancelled
--- NOTE | 2021-02-21 16:30 | W.PM.PROGNOT ---
Date of Service Date of service: 02/21/21 Time of Service: 16:31 Assessment and Plan Assessment and plan (1) Loculated pleural effusion: Status: Acute Assessment and plan: + Covid PNA with concerns of superimposed bacterial infection. Recently hospitalized so will begin Zosyn and Vancomycin. Consult pulmonary medicine. MRSA swab negative; stopped Vancomycin Change from Zosyn to Cefepime to help avoid renal stress. (2) COPD (chronic obstructive pulmonary disease): Status: Chronic Assessment and plan: IV dexamethasone for COVID will be of benefit given likely COPD involvement. Cont Symbicort. PRN albuterol neb. Qualifiers: COPD type: COPD with acute lower respiratory infection Qualified Code(s): J44.0 - Chronic obstructive pulmonary disease with (acute) lower respiratory infection (3) COVID: Status: Acute Assessment and plan: Daily Dexamethasone 6mg IV Remdesivir 200mg IV now, then 100mg daily. Inflammatory markers. CRP normalized. BiPAP Proning encouraged Talked to daughter Danielle. She and other siblings make pts healthcare decisions jointly. Improvement noted today; gradually weaning down supplemental O2 as tolerated. Tolerating eating while on highflow NC (4) Hypertension: Status: Chronic Assessment and plan: Required Levophed after becoming hypotensive the night of 02/19; MAP as low as in the 40's. BP improved very quickly. Now off Levophed. Holding amlodipine. Qualifiers: Hypertension type: primary hypertension Qualified Code(s): I10 - Essential (primary) hypertension Subjective Subjective Patient reports: feels better, tolerating a regular diet and afebrile; denies nausea and vomiting Interval history since last seen: Tolerating high flow nasal cannula Exam Narrative Exam Narrative: Lying on right side. CPAP in place. Const General: cooperative and no acute distress Nutritional Appearance: average body habitus Orientation: other (asleep; wakens to verbal stimuli) Eyes Sclera: sclerae normal Pupils: PERRL Neck Neck: no JVD Resp Effort & Inspection: other (CPAP in place.) Auscultation: diminished lung sounds and rhonchi (Intermittent) Cardio Rate: regular rate Rhythm: regular rhythm Heart Sounds: S1 normal and S2 normal GI Palpation: soft and nontender Skin General skin exam: no rashes or lesions noted Extrem General: no pedal edema and no calf tenderness Objective Last Vital Signs Temp 36.3 C L 02/21/21 15:39 Pulse 86 02/21/21 15:39 Resp 30 H 02/21/21 15:40 BP 151/81 H 02/21/21 15:01 Pulse Ox 95 02/21/21 15:40 Laboratory Results - last 24 hr 02/21/21 02/21/21 02/21/21 09:30 09:30 09:30 D-Dimer 1271 H Sodium 143 Potassium 2.9 L Chloride 103 Carbon Dioxide 35.0 H Anion Gap 5.0 BUN 14 Creatinine 0.6 Estimated GFR/1.73 m2 >= 60.00 Glucose 94 Calcium 8.1 L Magnesium 2.1 Ferritin 1561 H C-Reactive Protein 0.05 Vancomycin Trough 02/21/21 15:00 D-Dimer Sodium Potassium Chloride Carbon Dioxide Anion Gap BUN Creatinine Estimated GFR/1.73 m2 Glucose Calcium Magnesium Ferritin C-Reactive Protein Vancomycin Trough Cancelled
[2021-02-21] MEDS: Atorvastatin 40 MG TAB 80 MG PO (20:13)
[2021-02-21 23:19] LABS: C Diff PCR Negative (Negative)
[2021-02-22] VITALS (51 sets, daily range): BP systolic 113–194; BP diastolic 60–89; PULSE 52–93; RESP 9–35; TEMP 31–36.3; O2SAT 86–99
[2021-02-22] MEDS: Potassium Chloride 20 MEQ TABCR PO (01:15)
[2021-02-22] MEDS: Normal Saline Flush 10 ML SYR IVP ×3 (01:51→20:50)
[2021-02-22 05:19] LABS: Potassium 3.1 mmol/L (3.5-5.1)
[2021-02-22] MEDS: CEFEPIME 2 GM in Normal Saline 100 ML IVPB ×2 (09:11→19:53)
[2021-02-22] MEDS: FAMOTIDINE 20 MG/50 ML BAG 200 MG IVPB ×2 (09:11→20:49)
[2021-02-22] MEDS: Multivitamin TAB 1 TAB PO (09:12)
[2021-02-22] MEDS: guaiFENesin 600 MG TABCR PO ×2 (09:12→19:53)
[2021-02-22] MEDS: Potassium Chloride 10 MEQ CAPCR 20 MEQ PO ×3 (09:12→19:52)
[2021-02-22] MEDS: Dexamethasone 10 MG/ML VIAL 6 MG IVP (09:13)
[2021-02-22] MEDS: Aspirin E.C. 81 MG TABEC PO (09:13)
[2021-02-22] MEDS: Magnesium Oxide 400 MG TAB PO (09:13)
--- NOTE | 2021-02-22 12:10 | CMPROGNOTE_ITS ---
Care Management Progress Note S/O: Payton continues to be closely monitored and treated for Covid Pneumonia, she remains on CPAP and HI-NARCISA. CM continues to follow. A: 85 year old female admitted to [facility] on 02/19/21 for Pneumonia, Acute Respiratory Failure P: Barbi continues to be closely monitored in the ICU and treated for COVID. CM continues to follow.
[2021-02-22] MEDS: Enoxaparin 40 MG/0.4 ML SYR SC (13:00)
--- NOTE | 2021-02-22 16:15 | W.PM.PROGNOT ---
Date of Service Date of service: 02/22/21 Time of Service: 16:16 Assessment and Plan Assessment and plan (1) Loculated pleural effusion: Status: Acute Assessment and plan: + Covid PNA with concerns of superimposed bacterial infection. Recently hospitalized so will begin Zosyn and Vancomycin. Consult pulmonary medicine. MRSA swab negative; stopped Vancomycin Change from Zosyn to Cefepime to help avoid renal stress. (2) COPD (chronic obstructive pulmonary disease): Status: Chronic Assessment and plan: IV dexamethasone for COVID will be of benefit given likely COPD involvement. Cont Symbicort. PRN albuterol neb. Qualifiers: COPD type: COPD with acute lower respiratory infection Qualified Code(s): J44.0 - Chronic obstructive pulmonary disease with (acute) lower respiratory infection (3) COVID: Status: Acute Assessment and plan: Daily Dexamethasone 6mg IV Remdesivir 200mg IV now, then 100mg daily. Inflammatory markers. CRP normalized. D-dimer stable. CPap. Proning encouraged but she does not prone. . Tolerating eating while on highflow NC (4) Hypertension: Status: Chronic Assessment and plan: Required Levophed after becoming hypotensive the night of 02/19; MAP as low as in the 40's. BP improved very quickly. Now off Levophed. Holding amlodipine. Qualifiers: Hypertension type: primary hypertension Qualified Code(s): I10 - Essential (primary) hypertension Subjective Subjective Patient reports: no new complaints, tolerating a regular diet and afebrile; denies nausea and vomiting Interval history since last seen: Tolerating CPAP with intermittent highflow NC. Remaining oriented. Exam Narrative Exam Narrative: Deferred Physical Exam. Reviewed chart and discussed with nursing and respiratory therapy staff. Objective Last Vital Signs Temp 36.3 C L 02/22/21 12:00 Pulse 70 02/22/21 14:01 Resp 24 02/22/21 14:01 BP 116/71 02/22/21 13:05 Pulse Ox 91 L 02/22/21 14:01 Laboratory Results - last 24 hr 02/21/21 02/22/21 20:45 05:00 Potassium 3.1 L Stl C.difficile Tox PCR Negative
[2021-02-22] MEDS: Atorvastatin 40 MG TAB 80 MG PO (19:51)
[2021-02-22] MEDS: Loperamide 2 MG CAP PO (20:33)
[2021-02-23] VITALS (46 sets, daily range): BP systolic 118–172; BP diastolic 41–101; PULSE 44–76; RESP 10–35; TEMP 31–36.4; O2SAT 87–98
[2021-02-23 06:54] LABS: Abs Immature Grans 0.07 10^3/uL (0.0-0.06); Absolute Basophil Count 0.01 10^3/uL (0.0-0.2); Absolute Lymphocyte Count 0.78 10^3/uL (1.2-3.4); Absolute Monocyte Count 0.77 10^3/uL (0.1-0.8); Basophils % 0.2; Immature Grans % 1.1; Lymphocytes % 12.7; MCH 33.2 pg (27.0-33.0); MCHC 32.5 % (32.0-36.0); MPV 12.2 fL (8.0-11.0); Monocytes % 12.6; Neutrophils % 73.4; Nucleated RBC 0 %; Platelet Count 187 10^3/uL (130-400); RBC 3.92 10^6/uL (3.93-5.22); RDW 13.8 % (11.7-14.6); RDW-SD 51.8 fL; WBC 6.13 10^3/uL (4.4-10.8)
[2021-02-23 07:27] LABS: Anion Gap 4.3 mmol/L (3-11); BUN 20 mg/dL (7-18); CO2 32.7 mmol/L (21.0-32.0); CREATININE 0.5 mg/dL (0.55-1.02); Calcium 8.1 mg/dL (8.5-10.1); Chloride 105 mmol/L (98-107); Ferritin 780 ng/mL (8-252); Glucose 110 mg/dL (74-106); Potassium 4.2 mmol/L (3.5-5.1); Sodium 142 mmol/L (136-145)
[2021-02-23 07:29] LABS: D-Dimer 908 ng/mlFEU (<500)
[2021-02-23 07:31] LABS: C-Reactive Protein < 0.05 mg/dL (0.0-0.3)
[2021-02-23] MEDS: CEFEPIME 2 GM in Normal Saline 100 ML IVPB (08:39)
[2021-02-23] MEDS: Dexamethasone 10 MG/ML VIAL 6 MG IVP (08:39)
[2021-02-23] MEDS: Potassium Chloride 10 MEQ CAPCR 20 MEQ PO ×3 (08:39→20:13)
[2021-02-23] MEDS: Aspirin E.C. 81 MG TABEC PO (08:40)
[2021-02-23] MEDS: Multivitamin TAB 1 TAB PO (08:40)
[2021-02-23] MEDS: Loperamide 2 MG CAP PO ×3 (08:40→20:13)
[2021-02-23] MEDS: Magnesium Oxide 400 MG TAB PO (08:40)
[2021-02-23] MEDS: guaiFENesin 600 MG TABCR PO ×2 (08:40→20:13)
[2021-02-23] MEDS: Normal Saline Flush 10 ML SYR IVP ×3 (08:40→20:14)
--- NOTE | 2021-02-23 08:55 | PUCC_ITS ---
General Date of Service Date of service: 02/23/21 Time of Service: 07:30 Reason for Admission to ICU: COVID-19 Pneumonia Assessment and Plan Assessment and plan (1) COVID: Status: Acute (2) COPD (chronic obstructive pulmonary disease): Status: Chronic Qualifiers: COPD type: COPD with acute lower respiratory infection Qualified Code(s): J44.0 - Chronic obstructive pulmonary disease with (acute) lower respiratory infection (3) Lung cancer, middle lobe: Status: Chronic (4) Respiratory failure with hypoxia: Status: Acute Qualifiers: Chronicity: acute Qualified Code(s): J96.01 - Acute respiratory failure with hypoxia (5) Shock circulatory: Status: Acute Assessment and plan: This is a critically ill 85-year-old female with history of right middle lobe lung cancer who is admitted to the ICU with severe Covid pneumonia and shock. She is requiring high levels of oxygen support and required a Levophed infusion for a short period of time. She has been alternating between CPAP and high flow nasal cannula to maintain her saturations. Her chest CT is consistent with an organizing pneumonia as a known sequelae of Covid pneumonia. We will continue to treat her with remdesivir and Decadron however I am concerned that these will not improve her breathing dramatically. There is concern for an super infection with a bacterial pneumonia however her procalcitonin is low and I have an extremely low suspicion for this. That being said she is admitted to the ICU and is in severe respiratory failure and so we will treat her for bacterial infection as well. Recommendations Pulmonary: Acute hypoxic respiratory failure - CPAP at night and to rest, with HFNC for breaks - No IVF (dry lungs are happy lungs) - aspiration precautions RML lung cancer - unclear regarding whether this was fully treated, however she is not receiving treatment for this at this time h/o COPD - discontinue Symbicort while in ICU requiring CPAP/high O2 support - recommend Duonebs q4hr standing Cardiac: Distributive Shock, resolved - currently not requiring - on Decadron so any degree of cortisol deficiency is being treated - troponins negative and clinically does not appear to be in cardiogenic shock - hold all blood pressure lowering medications - can remove CVC - recommend a PICC Renal: No acute concerns I&O: Intake & Output 02/20/21 02/21/21 02/22/21 02/23/21 23:59 23:59 23:59 23:59 Intake Total 2865.471 / 2865.471 900 / 900 1360.252 / 1360.252 Output Total 1800 / 1800 2425 / 2425 1175 / 1175 Balance 1065.471 / 1065.471 -1525 / -1525 185.252 / 185.252 Weight 69.5 kg 69.1 kg 68.9 kg 68.6 kg Daily Fluid Goal:: even to negative GI Nutrition: OK for diet Date of Last Bowel Movement: 02/22/21 Infectious Disease: COVID-19 Pneumonia - continue Decadron 6mg daily while in ICU - continue remdesivir course - CRP is negative, will not redose with sarilumab - continue cefepime for now for a total 5 day course - is now DNR/DNI Hematologic: No acute concerns Neurologic: No acute concerns - delerium prevention Endocrine: On decadron - monitor blood sugars - treat with SSI if needed Lines: Lines: R IJ CVC - again recommend removing and placing a PICC Johnson PIV Prophylaxis: Prophylaxis: Lovenox for DVT ppx On famotidine for GI ppx I spent a total of 30 minutes with this patient including bedside assessment, rounding with respiratory therapy and nursing, coordination of care with the hospitalist service, chart review as well as documentation. Code Status: Resuscitation Status DNR/DNI Subjective Critical and life-threatening events over the past 24 hours: Barbi is doing well today.. Her breathing is slightly improved from yesterday. He is still having shortness of breath. She has a decent appetite however she does desaturate with extended periods of talking, moving, or eating. Exam Const General: in distress moderate and respiratory Nutritional Appearance: well nourished [facility] Head: normocephalic Ears: external ears normal and no periauricular adenopathy General nose exam: nasal mucous membranes and turbinates normal Face and sinus: sinuses nontender Mouth: oropharynx normal and moist mucous membranes Teeth and gingiva: dentition normal Eyes General: appearance normal, both eyes and all related structures Pupils: PERRL Neck Neck: normal visual inspection and no lymphadenopathy Chest Chest: normal inspection of the chest Resp Effort & Inspection: normal respiratory effort Auscultation: rales bilaterally, no rhonchi and no wheezes Cardio Rate: regular rate Rhythm: regular rhythm Heart Sounds: S1 normal, S2 normal and no murmurs Pulses: radial pulses present bilaterally GI Inspection: normal to inspection Palpation: soft Skin General skin exam: no rashes or lesions noted Neuro General: patient alert, patient awake and patient oriented x3 Extrem General: no clubbing, cyanosis or edema Psych Mental Status: mental status grossly normal Affect: normal affect Attitude: cooperative Most Recent VS/Results Last Vital Signs Temp 36.2 C L 02/23/21 03:35 Pulse 51 L 02/23/21 06:01 Resp 32 H 02/23/21 06:01 BP 118/48 L 02/23/21 06:01 Pulse Ox 92 02/23/21 06:01 Laboratory Results - last 24 hr 02/23/21 02/23/21 02/23/21 06:25 06:25 06:25 WBC 6.13 RBC 3.92 L Hgb 13.0 Hct 40.0 MCV 102.0 H MCH 33.2 H MCHC 32.5 RDW 13.8 Plt Count 187 MPV 12.2 H Immature Gran % 1.1 Neutrophils % 73.4 Lymphocytes % 12.7 Monocytes % 12.6 Eosinophils % 0.0 Basophils % 0.2 Nucleated RBC % 0 Absolute Neutrophils 4.50 Absolute Lymphocytes 0.78 L Absolute Monocytes 0.77 Absolute Eosinophils 0.00 Absolute Basophils 0.01 D-Dimer 908 H Sodium 142 Potassium 4.2 D Chloride 105 Carbon Dioxide 32.7 H Anion Gap 4.3 BUN 20 H D Creatinine 0.5 L Estimated GFR/1.73 m2 >= 60.00 Glucose 110 H Calcium 8.1 L Ferritin 780 H C-Reactive Protein < 0.05 Review of Systems All systems reviewed & are unremarkable except as noted in HPI and below Cardiovascular Cardiovascular: Denies chest pain at rest, Denies diaphoresis, Denies leg edema, Reports dyspnea and Reports dyspnea on exertion Respiratory Respiratory: Reports cough, Reports dyspnea and Reports dyspnea on exertion
--- NOTE | 2021-02-23 09:07 | CMPROGNOTE_ITS ---
- If Service Date Differs Date of service: 02/23/21 Time of Service: 16:51 Care Management Progress Note S/O: Payton continues to be closely monitored and treated for Covid Pneumonia, she remains on CPAP and HI-NARCISA, per MD her stats continue to drop with repositioning and it is expected she will have an extended stay at this time. Discharge planning to resume when patient status begins to improve. CM connected Payton with her daughters via ICU IPAD; [phone]. CM continues to follow. A: 85 year old female admitted to [facility] on 02/19/21 for Pneumonia, Acute Respiratory Failure P: Barbi continues to be closely monitored in the ICU and treated for COVID. CM continues to follow.
[2021-02-23] MEDS: FAMOTIDINE 20 MG/50 ML BAG 200 MG IVPB ×2 (09:58→21:55)
--- NOTE | 2021-02-23 11:07 | PHA.REVIEW ---
Pharmacy Admission Review - Admission Clinical Review (Last Updated 02/21/21 @ 16:52 by Hannah Parry MD) Oxygen dependent (Acute) Bradycardia (Acute) Stress due to illness of family member (Acute) DNI (do not intubate) (Acute) DNR (do not resuscitate) (Acute) Goals of care, counseling/discussion (Acute) Palliative care patient (Acute) Shock circulatory (Acute) Respiratory failure with hypoxia (Acute) Loculated pleural effusion (Acute) COVID (Acute) Hypoxia (Acute) Pneumonia (Acute) venom-honey bee [bee venom (honey bee)] Allergy (Severe, Unverified 02/19/21 10:17) Swelling/Edema Resuscitation Status DNR/DNI Height 5 ft 4 in Weight 68.6 kg - Renal Dosing Renal Dosing: BUN 20 mg/dL (7-18) H D 02/23/21 06:25 Creatinine 0.5 mg/dL (0.55-1.02) L 02/23/21 06:25 Medications needing adjustments: Reviewed List of meds needing interventions: eCrCl is 46 ml/min; cefepime renally adjusted to q12h interval - Anticoagulation Anticoagulation: Hgb 13.0 g/dL (11.2-15.7) 02/23/21 06:25 Hct 40.0 % (36.0-46.0) 02/23/21 06:25 Plt Count 187 10^3/uL (130-400) 02/23/21 06:25 INR 1.0 (0.9-1.1) 02/19/21 10:19 Creatinine 0.5 mg/dL (0.55-1.02) L 02/23/21 06:25 DVT Prophylaxis: Reviewed Medications: Enoxaparin - Opiate Usage Evaluate Pain Scale/Pains Meds: N/A - Relevant Labs Sodium 142 mmol/L (136-145) 02/23/21 06:25 Potassium 4.2 mmol/L (3.5-5.1) D 02/23/21 06:25 Chloride 105 mmol/L (98-107) 02/23/21 06:25 Magnesium 2.1 mg/dL (1.8-2.4) 02/21/21 09:30 C-Reactive Protein < 0.05 mg/dL (0.0-0.3) 02/23/21 06:25 Electrolytes, C-Reactive P, ESR: Reviewed - DM Control DM Control: Glucose 110 mg/dL (74-106) H 02/23/21 06:25 Insulin Dosing: Reviewed - Heart Failure/WV Heart Failure/WV: Troponin I < 0.05 ng/mL (<0.06) 02/19/21 14:02 NT-Pro-B Natriuret Pep 808 pg/mL (<300) H 02/19/21 10:19 EF%, DARIN's, B-Blockers, Diuretics: Reviewed - BP Control BP Control: Blood Pressure 151/90 Blood Pressure 151/101 Blood Pressure 172/64 Blood Pressure 118/48 Blood Pressure 121/41 Blood Pressure 158/60 Blood Pressure 137/75 Blood Pressure 120/70 Blood Pressure 128/70 If elevated: Reviewed List meds needing interventions: norepi gtt paused, metoprolol and amlodipine on home med list - Qtc Review If Elevated: Reviewed List meds needing interventions: 461 on admission - IV to PO Switch IV Medications: Reviewed - Home Meds Home Med List reviewed: Reviewed Relevent Home Meds Not ordered & why?: amlodipine, metoprolol, myrbetriq, gabapentin - Current meds Current Medication Order Review: Reviewed (required levophed gtt due to hypotension on 02/19 -- now paused and PO bp meds are being held; received Actemra on 02/15 @ 8mg/kg; a 5 day course of remdesivir has completed as of today -- will discuss with MD about continuing up to 10 days but likely not going to offer much more benefit) - Comments Comments/Follow Ups: pt remains on HFNC and CPAP, decadron continues, cefepime continues for possible bacterial super infection however procalcitonin <0.1 and CRP remains <0.05, will discuss with md about extending remdesivir
[2021-02-23] MEDS: Enoxaparin 40 MG/0.4 ML SYR SC (14:51)
[2021-02-23] MEDS: Atorvastatin 40 MG TAB 80 MG PO (20:13)
--- NOTE | 2021-02-23 20:23 | W.PM.PROGNOT ---
Date of Service Date of service: 02/23/21 Time of Service: 20:23 Assessment and Plan Assessment and plan (1) COPD (chronic obstructive pulmonary disease): Status: Chronic Assessment and plan: IV dexamethasone for COVID will be of benefit given likely COPD involvement. Cont Symbicort. PRN albuterol neb. Qualifiers: COPD type: COPD with acute lower respiratory infection Qualified Code(s): J44.0 - Chronic obstructive pulmonary disease with (acute) lower respiratory infection (2) COVID: Status: Acute Assessment and plan: CT shows organizing pneumonia; somewhat typical for COVID pneumona. Doubt superimposed bacterial infection. Finished a course of Cefepime. Daily Dexamethasone 6mg IV Remdesivir 200mg IV now, then 100mg daily. Inflammatory markers. CRP normalized. D-dimer stable. CPap with breaks on highflow nasal cannula Proning encouraged but she does not prone. . Tolerating eating while on highflow NC (3) Hypertension: Status: Chronic Assessment and plan: Required Levophed after becoming hypotensive the night of 02/19; MAP as low as in the 40's. BP improved very quickly. Now off Levophed. Holding amlodipine. Qualifiers: Hypertension type: primary hypertension Qualified Code(s): I10 - Essential (primary) hypertension (4) Lung cancer, middle lobe: Status: Chronic Assessment and plan: H/O lobectomy Subjective Subjective Patient reports: no new complaints, tolerating a regular diet and afebrile; denies nausea and vomiting Interval history since last seen: Tolerating CPAP with intermittent highflow NC. Increased level of alertness. Exam Narrative Exam Narrative: Deferred direct exam She endorses feeling better slowly. Const General: cooperative and no acute distress Nutritional Appearance: average body habitus Orientation: other (asleep; wakens to verbal stimuli) Cardio Rate: regular rate Rhythm: regular rhythm Objective Last Vital Signs Temp 36.0 C L 02/23/21 19:54 Pulse 67 02/23/21 18:01 Resp 26 H 02/23/21 18:01 BP 151/76 H 02/23/21 18:01 Pulse Ox 89 L 02/23/21 18:01 Laboratory Results - last 24 hr 02/23/21 02/23/21 02/23/21 06:25 06:25 06:25 WBC 6.13 RBC 3.92 L Hgb 13.0 Hct 40.0 MCV 102.0 H MCH 33.2 H MCHC 32.5 RDW 13.8 Plt Count 187 MPV 12.2 H Immature Gran % 1.1 Neutrophils % 73.4 Lymphocytes % 12.7 Monocytes % 12.6 Eosinophils % 0.0 Basophils % 0.2 Nucleated RBC % 0 Absolute Neutrophils 4.50 Absolute Lymphocytes 0.78 L Absolute Monocytes 0.77 Absolute Eosinophils 0.00 Absolute Basophils 0.01 D-Dimer 908 H Sodium 142 Potassium 4.2 D Chloride 105 Carbon Dioxide 32.7 H Anion Gap 4.3 BUN 20 H D Creatinine 0.5 L Estimated GFR/1.73 m2 >= 60.00 Glucose 110 H Calcium 8.1 L Ferritin 780 H C-Reactive Protein < 0.05
[2021-02-23] MEDS: Normal Saline 500 ML IV (20:54)
[2021-02-24] VITALS (49 sets, daily range): BP systolic 98–181; BP diastolic 61–95; PULSE 48–106; RESP 12–39; TEMP 31–36.8; O2SAT 82–95
--- NOTE | 2021-02-24 08:18 | W.PM.PROGNOT ---
Date of Service Date of service: 02/24/21 Time of Service: 14:03 Assessment and Plan Assessment and plan (1) Pneumonia due to COVID-19 virus: Status: Acute Assessment and plan: Progress has plateaued. Continue to monitor on CPAP/humidified heated high flow system, weaning O2 as tolerated. I have extended her course of remdesivir. Continue decadron. Continues to require ICU. (2) Acute respiratory failure with hypoxia: Status: Acute Assessment and plan: As above (3) COPD (chronic obstructive pulmonary disease): Status: Chronic Assessment and plan: As above Also, continue Symbicort and prn albuterol Qualifiers: COPD type: COPD with acute lower respiratory infection Qualified Code(s): J44.0 - Chronic obstructive pulmonary disease with (acute) lower respiratory infection (4) Hypertension: Status: Chronic Assessment and plan: Resume amlodipine. No longer requiring levophed. Qualifiers: Hypertension type: primary hypertension Qualified Code(s): I10 - Essential (primary) hypertension (5) Lung cancer, middle lobe: Status: Chronic Assessment and plan: H/O lobectomy F/u as outpatient (6) DVT prophylaxis: Status: Acute Assessment and plan: SC lovenox (7) Discharge planning issues: Status: Acute Assessment and plan: DNR/DNI Continues to require ICU. Total Critical Care Time 45 minutes. Subjective Subjective Interval history since last seen: Ms Barrientos states she feels a little better than when she first came in, but she is not feeling much better than yesterday. Had diarrhea. Denies dizziness, chest pain, nausea. Reported abdominal pain to nursing, but this has resolved with BM. Continues to report shortness of breath. She is not sure if she can taste or smell. Slept well overnight. On CPAP 8 60% at night, high flow during the day as tolerating - 50 L 60%, O2 sat 91% on CPAP this morning. Does desat with coughing spells and has had to go back on CPAP several times. Does not prone, per nursing. Exam Narrative Exam Narrative: General: Elderly female who does not appear to be feeling well, mildly tachypneic on humidified heated high flow system HEENT: EOMI, MMM Heart: RRR, + DARRION Lungs: crackles L base, diminished R base Abdomen: soft, nontender, nondistended Extremities: no edema, + 1 B pedal pulses Objective Last Vital Signs Temp 36.6 C 02/24/21 06:34 Pulse 49 L 02/24/21 06:01 Resp 26 H 02/24/21 06:34 BP 114/72 02/24/21 06:01 Pulse Ox 88 L 02/24/21 06:34
[2021-02-24] MEDS: Normal Saline 500 ML 30 ML IV (09:09)
[2021-02-24] MEDS: FAMOTIDINE 20 MG/50 ML BAG 200 MG IVPB ×2 (09:09→21:44)
[2021-02-24] MEDS: Normal Saline Flush 10 ML SYR IVP ×3 (09:10→21:45)
[2021-02-24] MEDS: Dexamethasone 10 MG/ML VIAL 6 MG IVP (09:11)
[2021-02-24] MEDS: Aspirin E.C. 81 MG TABEC PO (09:12)
[2021-02-24] MEDS: Potassium Chloride 10 MEQ CAPCR 20 MEQ PO ×3 (09:12→21:44)
[2021-02-24] MEDS: Multivitamin TAB 1 TAB PO (09:12)
[2021-02-24] MEDS: Magnesium Oxide 400 MG TAB PO (09:12)
[2021-02-24] MEDS: guaiFENesin 600 MG TABCR PO ×2 (09:12→21:43)
[2021-02-24] MEDS: amLODIPine 5 MG TAB PO (14:57)
[2021-02-24] MEDS: Enoxaparin 40 MG/0.4 ML SYR SC (14:57)
--- NOTE | 2021-02-24 15:54 | NUR.NOTE ---
Nursing Note: At approx 14:00 Nurse from the ICU in the [facility] called to arrange a phone call between patient and her son Devon, who is hospitalized with COVID there in [place]. Son has been on a vent and is due to be extubated today on comfort measures and is not likely to survive. I told [facility] in [place] I would call them back after I speak to Patient's daughters. Called patient's daughter Crys to make plan regarding informing patient of son's condition and facilitating phone call. Crys repeated several times that she would rather that I tell patient about Devon's condition, and facilitate phone call between patient and her son. Then daughter Crys, along with her sisters would Facetime with patient afterwards, to offer support. Made plan with Crys to facilitate phonecall with Devon prior to 3pm and planned for Crys and sisters to Facetime at 4pm. I then spoke with patient and explained situation with her son, and that this might be her last time talking to him. Explained that he would be extubated and his chances of survival weren't good. Explained that he would be able to hear her voice but wouldn't be able to talk to her. Patient understood. When she was ready, we called the [facility] in [place] together and she said goodbye to her son. Afterward, patient was tearful but stoic, I held her hand and we talked together for about forty five minutes. Patient maintained sats of 90-91% on Hi Flow nc the whole time, respiration rate in the 20s and heart rate in the 80s. Her profound grief was evident and moving.
[2021-02-24] MEDS: Atorvastatin 40 MG TAB 80 MG PO (21:43)
[2021-02-24] MEDS: Acetaminophen 325 MG TAB 650 MG PO (21:44)
[2021-02-25] VITALS (107 sets, daily range): BP systolic 96–148; BP diastolic 6–89; PULSE 63–108; RESP 19–48; TEMP 31–36.5; O2SAT 71–96
[2021-02-25] MEDS: Loperamide 2 MG CAP PO ×3 (06:13→19:30)
[2021-02-25] MEDS: Normal Saline Flush 10 ML SYR IVP ×3 (06:14→19:28)
[2021-02-25 07:04] LABS: Absolute Basophil Count 0.02 10^3/uL (0.0-0.2); Absolute Eosinophil Count 0.01 10^3/uL (0.0-0.7); Absolute Lymphocyte Count 0.85 10^3/uL (1.2-3.4); Absolute Monocyte Count 0.62 10^3/uL (0.1-0.8); Basophils % 0.2; Eosinophils % 0.1; HCT 45.6 % (36.0-46.0); Immature Grans % 0.8; Lymphocytes % 6.8; MCHC 32.9 % (32.0-36.0); MCV 100.2 fL (80-95); MPV 12.4 fL (8.0-11.0); Neutrophils % 87.1; Nucleated RBC 0 %; Platelet Count 214 10^3/uL (130-400); RBC 4.55 10^6/uL (3.93-5.22); RDW 14.1 % (11.7-14.6); RDW-SD 52.1 fL; WBC 12.46 10^3/uL (4.4-10.8)
[2021-02-25 07:16] LABS: Absolute Neutrophil Count 10.85 10^3/uL (1.2-6.7)
[2021-02-25 07:44] LABS: D-Dimer 883 ng/mlFEU (<500)
[2021-02-25 07:47] LABS: Magnesium 2.2 mg/dL (1.8-2.4)
[2021-02-25 07:51] LABS: ALT 68 U/L (14-59); AST 32 U/L (15-37); Alkaline Phosphatase 54 U/L (46-116); Anion Gap 5.8 mmol/L (3-11); BUN 26 mg/dL (7-18); Bilirubin, Direct 0.1 mg/dL (0.0-0.2); Bilirubin, Total 0.4 mg/dL (0.2-1.0); C-Reactive Protein < 0.05 mg/dL (0.0-0.3); CO2 30.2 mmol/L (21.0-32.0); CREATININE 0.7 mg/dL (0.55-1.02); Calcium 9.3 mg/dL (8.5-10.1); Chloride 102 mmol/L (98-107); Creatine Kinase 30 U/L (26-192); Glucose 107 mg/dL (74-106); Potassium 4.9 mmol/L (3.5-5.1); Sodium 138 mmol/L (136-145); Total Protein 6.7 g/dL (6.4-8.2); Troponin I < 0.05 ng/mL (<0.06)
[2021-02-25 08:09] LABS: Procalcitonin < 0.1 ng/mL
--- NOTE | 2021-02-25 08:14 | W.PM.PROGNOT ---
Date of Service Date of service: 02/25/21 Time of Service: 12:08 Assessment and Plan Assessment and plan (1) Pneumonia due to COVID-19 virus: Status: Acute Assessment and plan: Progress has plateaued as far as oxygen requirement, though physically looks a little bit better. Continue to monitor on CPAP/humidified heated high flow system, weaning O2 as tolerated. Continue extended course of remdesivir and decadron. The latest guidelines state that prophylactic dose of lovenox should be sufficient - will not change dose. Continues to require ICU. (2) Acute respiratory failure with hypoxia: Status: Acute Assessment and plan: As above (3) COPD (chronic obstructive pulmonary disease): Status: Chronic Assessment and plan: As above Also, continue Symbicort and prn albuterol Qualifiers: COPD type: COPD with acute lower respiratory infection Qualified Code(s): J44.0 - Chronic obstructive pulmonary disease with (acute) lower respiratory infection (4) Hypertension: Status: Chronic Assessment and plan: Continue No longer requiring levophed. Qualifiers: Hypertension type: primary hypertension Qualified Code(s): I10 - Essential (primary) hypertension (5) Lung cancer, middle lobe: Status: Chronic Assessment and plan: H/O lobectomy F/u as outpatient (6) DVT prophylaxis: Status: Acute Assessment and plan: SC lovenox (7) Discharge planning issues: Status: Acute Assessment and plan: DNR/DNI Continues to require ICU. Total Critical Care Time 45 minutes. Subjective Subjective Interval history since last seen: Ms Barrientos states she is feeling a little better today. Feels short of breath on BiPAP as well as dizzy. Reports a little bit of LLQ pain. Denies chest pain, nausea. Ate all of her breakfast - fed herself. Desatted on high flow nasal canula overnight, so spent the night on 60% of FiO2 on CPAP w/ PEEP 8. Retrialing high flow this morning - did ok, but back to CPAP with FiO2 of 50 % right now. Proned side to side, not on the belly. HR 80. SR. Has an IJ - 2 lumens clogged. Getting removed today. A&Ox4. Diarrhea 3-4 x last night. Loperamide given. Spoke with her son last night, said good bye. States she is comfortable with the level of care she is receiving - not interested in comfort measures at this time. Exam Narrative Exam Narrative: General: Elderly female who is on CPAP, does not appear to be short of breath/dyspneic/tachypneic. Looks a little bit better than yesterday. HEENT: EOMI, MMM Heart: RRR, + DARRION Lungs: Diminished breath sounds B Abdomen: soft, tender in LLQ, nondistended Extremities: no edema, + 1 B pedal pulses Objective Last Vital Signs Temp 36.0 C L 02/25/21 04:00 Pulse 63 02/25/21 06:01 Resp 29 H 02/25/21 06:01 BP 96/55 L 02/25/21 06:01 Pulse Ox 95 02/25/21 06:01 Laboratory Results - last 24 hr 02/25/21 02/25/21 02/25/21 06:30 06:30 06:30 WBC RBC Hgb Hct MCV MCH MCHC RDW Plt Count MPV Immature Gran % Neutrophils % Lymphocytes % Monocytes % Eosinophils % Basophils % Nucleated RBC % Absolute Neutrophils Absolute Lymphocytes Absolute Monocytes Absolute Eosinophils Absolute Basophils D-Dimer Sodium 138 Potassium 4.9 Chloride 102 Carbon Dioxide 30.2 Anion Gap 5.8 BUN 26 H Creatinine 0.7 Estimated GFR/1.73 m2 >= 60.00 Glucose 107 H Calcium 9.3 Magnesium 2.2 Total Bilirubin 0.4 Conjugated Bilirubin 0.1 AST 32 ALT 68 H Alkaline Phosphatase 54 Creatine Kinase 30 Troponin I < 0.05 C-Reactive Protein < 0.05 Total Protein 6.7 Albumin 3.0 L Procalcitonin < 0.1 02/25/21 02/25/21 06:30 06:30 WBC 12.46 H RBC 4.55 Hgb 15.0 Hct 45.6 MCV 100.2 H MCH 33.0 MCHC 32.9 RDW 14.1 Plt Count 214 MPV 12.4 H Immature Gran % 0.8 Neutrophils % 87.1 Lymphocytes % 6.8 Monocytes % 5.0 Eosinophils % 0.1 Basophils % 0.2 Nucleated RBC % 0 Absolute Neutrophils 10.85 H Absolute Lymphocytes 0.85 L Absolute Monocytes 0.62 Absolute Eosinophils 0.01 Absolute Basophils 0.02 D-Dimer 883 H Sodium Potassium Chloride Carbon Dioxide Anion Gap BUN Creatinine Estimated GFR/1.73 m2 Glucose Calcium Magnesium Total Bilirubin Conjugated Bilirubin AST ALT Alkaline Phosphatase Creatine Kinase Troponin I C-Reactive Protein Total Protein Albumin Procalcitonin
[2021-02-25 08:35] LABS: Ferritin 592 ng/mL (8-252)
[2021-02-25] MEDS: Aspirin E.C. 81 MG TABEC PO (09:27)
[2021-02-25] MEDS: Dexamethasone 10 MG/ML VIAL 6 MG IVP (09:28)
[2021-02-25] MEDS: guaiFENesin 600 MG TABCR PO ×2 (09:29→19:28)
[2021-02-25] MEDS: Multivitamin TAB 1 TAB PO (09:29)
[2021-02-25] MEDS: Magnesium Oxide 400 MG TAB PO (09:29)
[2021-02-25] MEDS: amLODIPine 5 MG TAB PO (09:30)
[2021-02-25] MEDS: Potassium Chloride 10 MEQ CAPCR 20 MEQ PO ×3 (09:33→19:28)
[2021-02-25] MEDS: FAMOTIDINE 20 MG/50 ML BAG 200 MG IVPB ×2 (09:47→21:18)
--- NOTE | 2021-02-25 11:19 | NUR.NOTE ---
At 10:45 a.m. RN decreases FIO2 on CPAP TO 55% Patient is sating 96% on same. Patient rotated to right flank proning and doing well.Nursing Note:
[2021-02-25] MEDS: Enoxaparin 40 MG/0.4 ML SYR SC (13:37)
[2021-02-25 13:41] LABS: Bilirubin Negative (Negative); Blood Negative (Negative); Clarity Clear (Clear); Glucose Negative (Negative); Ketones Negative (Negative); Leukocyte Esterase Negative (Negative); Nitrite Negative (Negative); Specific Gravity 1.025 (1.005-1.025); Urobilinogen 0.2 EU/dL (Up TO 0.2)
--- NOTE | 2021-02-25 16:58 | NUR.NOTE ---
RN dc's right IJ. Patient tolerated same well and complimented RN on his technique and gentle touch. Pressure bandage applied.Nursing Note:
--- NOTE | 2021-02-25 18:44 | NUR.NOTE ---
Nursing Note: Barney Farfan, long time friend of the pt and the family and best friend of pt's son that just passed from covid) called asked to speak with pt, pt unable at this time to use the phone. Barney asks RN if pt aware her son has passed. Explained that family agreed to facetime tonight at 8pm and update pt. Barney reports he is DPOA for her son and had spoken with family (and pt) many times this week. Barney states he will call again tomorrow to speak with pt after family reports the of her son to her.
[2021-02-25] MEDS: Atorvastatin 40 MG TAB 80 MG PO (19:28)
--- NOTE | 2021-02-25 20:47 | NUR.NOTE ---
Pt daughter Danielle on facetime with pt from [id number]. Danielle told pt that her son had passed. Pt states when I talked to him, when they took him off the vent, I didnt feel like he was going to make it. pt thanks her daughter for giving her the news on her son. Pt agrees that she is going to get better and go home pt and daughter discuss plans for a gathering of the local family when pt is better. Pt states she would like that!
[2021-02-26] VITALS (288 sets, daily range): BP systolic 92–141; BP diastolic 49–89; PULSE 65–115; RESP 4–45; TEMP 35.6–36.1; O2SAT 80–99
--- NOTE | 2021-02-26 | DI.US_ITS ---
Exam(s) US EXTREMITY VENOUS BI EXAM: US EXTREMITY VENOUS BI CLINICAL HISTORY: concern for DVT/PE. TECHNIQUE: Bilateral lower extremity venous ultrasound performed using grayscale, color-flow, and sp ectral Doppler analysis. COMPARISON: US LEFT EXTREMITY ULTRASOUND from 09/14/2010 FINDINGS: The left common femoral, femoral and popliteal veins demonstrate normal compressibility, augmentation , and color Doppler. The right common femoral, proximal and mid femoral and popliteal veins demonstra te normal compressibility, augmentation, and color Doppler. There is a 1.2 cm length of nonocclusive thrombus in the distal right femoral vein. The posterior tibial veins are patent. The saphenofemora l junctions are unremarkable. There is no evidence of a Nam's cyst. The soft tissues are unremarkab le. IMPRESSION: Right: Nonocclusive thrombus seen in the distal right femoral vein measuring 1.2 cm in length. Left: Negative for DVT DATA REPOSITORY:
[2021-02-26 02:43] LABS: Vitamin D 25 Total 50.7 ng/mL (30-100)
[2021-02-26] MEDS: LORazepam 1 MG TAB PO (02:51)
--- NOTE | 2021-02-26 03:12 | NUR.NOTE ---
NPt became very anxious and pulled cpap mask off crying and saying she wants everything removed. Placed on HF for 15 min pt did not tolerate the HF . Ativan ordered by hospitalist. Ativan given and cpap replaced.ursing Note:
[2021-02-26 06:51] LABS: Abs Immature Grans 0.11 10^3/uL (0.0-0.06); Absolute Basophil Count 0.01 10^3/uL (0.0-0.2); Absolute Eosinophil Count 0.01 10^3/uL (0.0-0.7); Basophils % 0.1; Eosinophils % 0.1; HCT 45.2 % (36.0-46.0); HGB 15.1 g/dL (11.2-15.7); Immature Grans % 0.8; MCH 33.2 pg (27.0-33.0); MCHC 33.4 % (32.0-36.0); MCV 99.3 fL (80-95); MPV 12.1 fL (8.0-11.0); Monocytes % 5.5; Neutrophils % 88.5; Nucleated RBC 0 %; Platelet Count 194 10^3/uL (130-400); RBC 4.55 10^6/uL (3.93-5.22); RDW 14.2 % (11.7-14.6); RDW-SD 51.4 fL; WBC 13.92 10^3/uL (4.4-10.8)
[2021-02-26 06:52] LABS: Absolute Monocyte Count 0.77 10^3/uL (0.1-0.8); Absolute Neutrophil Count 12.32 10^3/uL (1.2-6.7)
[2021-02-26 07:11] LABS: ALT 54 U/L (14-59); AST 24 U/L (15-37); Albumin 2.7 g/dL (3.4-5.0); Alkaline Phosphatase 49 U/L (46-116); Anion Gap 4.2 mmol/L (3-11); BUN 25 mg/dL (7-18); Bilirubin, Direct 0.1 mg/dL (0.0-0.2); Bilirubin, Total 0.4 mg/dL (0.2-1.0); CO2 28.8 mmol/L (21.0-32.0); CREATININE 0.7 mg/dL (0.55-1.02); Calcium 8.9 mg/dL (8.5-10.1); Chloride 102 mmol/L (98-107); Glucose 115 mg/dL (74-106); Potassium 5.3 mmol/L (3.5-5.1); Sodium 135 mmol/L (136-145); Total Protein 6.3 g/dL (6.4-8.2)
[2021-02-26 07:15] LABS: C-Reactive Protein < 0.05 mg/dL (0.0-0.3)
[2021-02-26 07:23] LABS: Magnesium 2.2 mg/dL (1.8-2.4)
[2021-02-26 07:38] LABS: Ferritin 486 ng/mL (8-252)
--- NOTE | 2021-02-26 08:18 | W.PM.PROGNOT ---
Date of Service Date of service: 02/26/21 Time of Service: 11:26 Assessment and Plan Assessment and plan (1) Pneumonia due to COVID-19 virus: Status: Acute Assessment and plan: No improvement in the last 24 hrs. Moreover, I think she is also encephalopathic from COVID-19. [address] with Dr Ching - continue remdesivir, decadron, CPAP/humidified heated high flow. Will not add full anticoagulation unless actually confirmed to have a VTE - getting venous dopplers today. Continues to require ICU. I have asked to see if we can have palliative care re-visit the patient today. (2) Acute respiratory failure with hypoxia: Status: Acute Assessment and plan: As above (3) COPD (chronic obstructive pulmonary disease): Status: Chronic Assessment and plan: As above Also, continue Symbicort and prn albuterol Qualifiers: COPD type: COPD with acute lower respiratory infection Qualified Code(s): J44.0 - Chronic obstructive pulmonary disease with (acute) lower respiratory infection (4) Hypertension: Status: Chronic Assessment and plan: Continue No longer requiring levophed. Qualifiers: Hypertension type: primary hypertension Qualified Code(s): I10 - Essential (primary) hypertension (5) Lung cancer, middle lobe: Status: Chronic Assessment and plan: H/O lobectomy F/u as outpatient (6) DVT prophylaxis: Status: Acute Assessment and plan: SC lovenox (7) Discharge planning issues: Status: Acute Assessment and plan: DNR/DNI Continues to require ICU. Total Critical Care Time 60 minutes. Subjective Subjective Interval history since last seen: It is difficult to understand what Ms Barrientos is saying while she is on the CPAP. She does not want to take it off right now. When I tried to give her a pen and a piece of paper to write down her thoughts, what she wrote was unintelligeable. When we gave her a dry erase board/communication tool, she tried writing with the dry [employer] markers, but was not even able to write 1 letter - and gave up. She reports diffuse abdominal pain. Did not eat breakfast. Continues to have diarrhea. Denies nausea. Denies chest pain, endorses shortness of breath. Desatted on humidified heated high flow NC overnight. On CPAP now, settings PEEP of 8, 65% of FiO2. Defeated this morning - found out her son last night. Got ativan at 3 am. Dopplers of 4 extremities ordered for this am in consideration of full anticoagulation. Exam Narrative Exam Narrative: General: Elderly female who is on CPAP, sitting up in a chair, does not appear to be short of breath/dyspneic/tachypneic, but looks anxious and slightly more confused, unable to write. It is hard to tell how oriented she is because I cannot hear her answers through CPAP HEENT: EOMI, MMM Heart: RRR, + DARRION Lungs: Diminished breath sounds B Abdomen: soft, +BS, diffusely tender, distended Extremities: no edema, + 1 B pedal pulses Objective Last Vital Signs Temp 36.0 C L 02/26/21 00:01 Pulse 67 02/26/21 08:01 Resp 25 H 02/26/21 08:03 BP 96/49 L 02/26/21 08:01 Pulse Ox 96 02/26/21 08:03 Laboratory Results - last 24 hr 02/25/21 02/25/21 02/25/21 06:30 06:30 13:00 WBC RBC Hgb Hct MCV MCH MCHC RDW Plt Count MPV Immature Gran % Neutrophils % Lymphocytes % Monocytes % Eosinophils % Basophils % Nucleated RBC % Absolute Neutrophils Absolute Lymphocytes Absolute Monocytes Absolute Eosinophils Absolute Basophils Sodium Potassium Chloride Carbon Dioxide Anion Gap BUN Creatinine Estimated GFR/1.73 m2 Glucose Calcium Magnesium Ferritin 592 H Total Bilirubin Conjugated Bilirubin AST ALT Alkaline Phosphatase C-Reactive Protein Total Protein Albumin 25-OH Vitamin D Total 50.7 Urine Color Yellow Urine Clarity Clear Urine pH 7.0 Ur Specific Rose 1.025 Urine Protein Negative Urine Ketones Negative Urine Blood Negative Urine Nitrite Negative Urine Bilirubin Negative Urine Urobilinogen 0.2 Ur Leukocyte Esterase Negative Urine Glucose Negative 02/26/21 02/26/21 02/26/21 06:40 06:40 06:40 WBC 13.92 H RBC 4.55 Hgb 15.1 Hct 45.2 MCV 99.3 H MCH 33.2 H MCHC 33.4 RDW 14.2 Plt Count 194 MPV 12.1 H Immature Gran % 0.8 Neutrophils % 88.5 Lymphocytes % 5.0 Monocytes % 5.5 Eosinophils % 0.1 Basophils % 0.1 Nucleated RBC % 0 Absolute Neutrophils 12.32 H Absolute Lymphocytes 0.70 L Absolute Monocytes 0.77 Absolute Eosinophils 0.01 Absolute Basophils 0.01 Sodium 135 L Potassium 5.3 H Chloride 102 Carbon Dioxide 28.8 Anion Gap 4.2 BUN 25 H Creatinine 0.7 Estimated GFR/1.73 m2 >= 60.00 Glucose 115 H Calcium 8.9 Magnesium 2.2 Ferritin 486 H Total Bilirubin 0.4 Conjugated Bilirubin 0.1 AST 24 ALT 54 Alkaline Phosphatase 49 C-Reactive Protein < 0.05 Total Protein 6.3 L Albumin 2.7 L 25-OH Vitamin D Total Urine Color Urine Clarity Urine pH Ur Specific Rose Urine Protein Urine Ketones Urine Blood Urine Nitrite Urine Bilirubin Urine Urobilinogen Ur Leukocyte Esterase Urine Glucose
[2021-02-26] MEDS: FAMOTIDINE 20 MG/50 ML BAG 200 MG IVPB ×2 (08:40→21:05)
--- NOTE | 2021-02-26 08:43 | W.PULMCC ---
General Date of Service Date of service: 02/26/21 Time of Service: 07:15 Reason for Admission to ICU: Covid pneumonia Assessment and Plan Assessment and plan (1) COVID: Status: Acute (2) COPD (chronic obstructive pulmonary disease): Status: Chronic Qualifiers: COPD type: COPD with acute lower respiratory infection Qualified Code(s): J44.0 - Chronic obstructive pulmonary disease with (acute) lower respiratory infection (3) Lung cancer, middle lobe: Status: Chronic (4) Respiratory failure with hypoxia: Status: Acute Qualifiers: Chronicity: acute Qualified Code(s): J96.01 - Acute respiratory failure with hypoxia (5) Shock circulatory: Status: Acute Assessment and plan: This is a critically ill 85-year-old female with history of right middle lobe lung cancer who is admitted to the ICU with severe Covid pneumonia and shock. She is requiring high levels of oxygen support and required a Levophed infusion for a short period of time. She has been alternating between CPAP and high flow nasal cannula to maintain her saturations. Her chest CT is consistent with an organizing pneumonia as a known sequelae of Covid pneumonia. We will continue to treat her with remdesivir and Decadron however I am concerned that these will not improve her breathing dramatically. She completed a course of antibiotics for pneumonia despite a low likelihood of bacterial infection. A procalcitonin was checked over the weekend which was also negative. She did experience some more abrupt desaturation this morning and required more support overnight with an FiO2 of up to 80%. Recommendations Pulmonary: Acute hypoxic respiratory failure - CPAP at night and to rest, with HFNC for breaks - No IVF (dry lungs are happy lungs) - aspiration precautions RML lung cancer - unclear regarding whether this was fully treated, however she is not receiving treatment for this at this time h/o COPD - recommend Duonebs q4hr standing Cardiac: Distributive Shock, resolved - currently not requiring vasopressor support - on Decadron so any degree of cortisol deficiency is being treated - troponins negative and clinically does not appear to be in cardiogenic shock - hold all blood pressure lowering medications - can remove CVC - recommend a PICC Renal: No acute concerns - would still aim for a slightly negative fluid balance I&O: Intake & Output 02/23/21 02/24/21 02/25/21 02/26/21 23:59 23:59 23:59 23:59 Intake Total 1320 / 1320 2053.2 / 2053.2 1230 / 1230 Output Total 1175 / 1175 2451 / 2451 1100 / 1100 700 / 700 Balance 145 / 145 -397.8 / -397.8 130 / 130 -700 / -700 Weight 68.6 kg 68.6 kg Daily Fluid Goal:: -500 to -1L GI Nutrition: Ok for diet Date of Last Bowel Movement: 02/25/21 Infectious Disease: COVID-19 Pneumonia - continue Decadron 6mg daily while in ICU - continue remdesivir - CRP is negative, will not redose with sarilumab - would not recommend further antibiotics given negative procalcitonin - out of bed to chair as tolerated - I.S. 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 Code Status: Resuscitation Status DNR/DNI Subjective Critical and life-threatening events over the past 24 hours: Barbi remains tenuous with desaturations with minimal movement and switching to high flow nasal cannula. She tolerates CPAP quite well and tends to do better with this. This morning on attempt to put her on high flow nasal cannula she quickly desaturated and was placed back on CPAP. She states that her breathing is okay on the mask. She seems quite defeated this morning. Exam Const General: in distress moderate and respiratory Nutritional Appearance: well nourished [facility] Head: normocephalic Ears: external ears normal and no periauricular adenopathy General nose exam: nasal mucous membranes and turbinates normal Face and sinus: sinuses nontender Mouth: oropharynx normal and moist mucous membranes Teeth and gingiva: dentition normal Eyes General: appearance normal, both eyes and all related structures Pupils: PERRL Neck Neck: normal visual inspection and no lymphadenopathy Chest Chest: normal inspection of the chest Resp Effort & Inspection: normal respiratory effort Auscultation: rales bilaterally, no rhonchi and no wheezes Cardio Rate: regular rate Rhythm: regular rhythm Heart Sounds: S1 normal, S2 normal and no murmurs Pulses: radial pulses present bilaterally GI Inspection: normal to inspection Palpation: soft Skin General skin exam: no rashes or lesions noted Neuro General: patient alert, patient awake and patient oriented x3 Extrem General: no clubbing, cyanosis or edema Psych Mental Status: mental status grossly normal Affect: normal affect Attitude: cooperative Most Recent VS/Results Last Vital Signs Temp 36.0 C L 02/26/21 00:01 Pulse 67 02/26/21 08:01 Resp 25 H 02/26/21 08:03 BP 96/49 L 02/26/21 08:01 Pulse Ox 96 02/26/21 08:03 Laboratory Results - last 24 hr 02/25/21 02/25/21 02/26/21 06:30 13:00 06:40 WBC RBC Hgb Hct MCV MCH MCHC RDW Plt Count MPV Immature Gran % Neutrophils % Lymphocytes % Monocytes % Eosinophils % Basophils % Nucleated RBC % Absolute Neutrophils Absolute Lymphocytes Absolute Monocytes Absolute Eosinophils Absolute Basophils Sodium 135 L Potassium 5.3 H Chloride 102 Carbon Dioxide 28.8 Anion Gap 4.2 BUN 25 H Creatinine 0.7 Estimated GFR/1.73 m2 >= 60.00 Glucose 115 H Calcium 8.9 Magnesium Ferritin 486 H Total Bilirubin 0.4 Conjugated Bilirubin 0.1 AST 24 ALT 54 Alkaline Phosphatase 49 C-Reactive Protein < 0.05 Total Protein 6.3 L Albumin 2.7 L 25-OH Vitamin D Total 50.7 Urine Color Yellow Urine Clarity Clear Urine pH 7.0 Ur Specific [place] 1.025 Urine Protein Negative Urine Ketones Negative Urine Blood Negative Urine Nitrite Negative Urine Bilirubin Negative Urine Urobilinogen 0.2 Ur Leukocyte Esterase Negative Urine Glucose Negative 02/26/21 02/26/21 06:40 06:40 WBC 13.92 H RBC 4.55 Hgb 15.1 Hct 45.2 MCV 99.3 H MCH 33.2 H MCHC 33.4 RDW 14.2 Plt Count 194 MPV 12.1 H Immature Gran % 0.8 Neutrophils % 88.5 Lymphocytes % 5.0 Monocytes % 5.5 Eosinophils % 0.1 Basophils % 0.1 Nucleated RBC % 0 Absolute Neutrophils 12.32 H Absolute Lymphocytes 0.70 L Absolute Monocytes 0.77 Absolute Eosinophils 0.01 Absolute Basophils 0.01 Sodium Potassium Chloride Carbon Dioxide Anion Gap BUN Creatinine Estimated GFR/1.73 m2 Glucose Calcium Magnesium 2.2 Ferritin Total Bilirubin Conjugated Bilirubin AST ALT Alkaline Phosphatase C-Reactive Protein Total Protein Albumin 25-OH Vitamin D Total Urine Color Urine Clarity Urine pH Ur Specific [place] Urine Protein Urine Ketones Urine Blood Urine Nitrite Urine Bilirubin Urine Urobilinogen Ur Leukocyte Esterase Urine Glucose Review of Systems All systems reviewed & are unremarkable except as noted in HPI and below Cardiovascular Cardiovascular: Denies chest pain at rest, Denies diaphoresis, Denies leg edema, Reports dyspnea and Reports dyspnea on exertion Respiratory Respiratory: Reports cough, Reports dyspnea and Reports dyspnea on exertion
[2021-02-26] MEDS: Aspirin E.C. 81 MG TABEC PO (08:44)
[2021-02-26] MEDS: Multivitamin TAB 1 TAB PO (08:44)
[2021-02-26] MEDS: Magnesium Oxide 400 MG TAB PO (08:44)
[2021-02-26] MEDS: Dexamethasone 10 MG/ML VIAL 6 MG IVP (08:44)
[2021-02-26] MEDS: guaiFENesin 600 MG TABCR PO ×2 (08:44→19:59)
[2021-02-26] MEDS: Normal Saline Flush 10 ML SYR IVP ×2 (08:44→19:59)
--- NOTE | 2021-02-26 10:13 | PDOC.CMPRO ---
- If Service Date Differs Date of service: 02/26/21 Time of Service: 10:50 Care Management Progress Note S/O: Payton continues to be closely monitored and treated for Covid Pneumonia, she remains on CPAP per RT, and at this time is no longer able to be transitioned back to HI-NARCISA. She was moved to her chair today, and RT reports sats dropped to 70s. Payton can be connected with her daughters via ICU IPAD; [phone]. She was told over the weekend that her son due to COVID, she required ativan due to grief response, per MD. CM continues to follow. A: 85 year old female admitted to [facility] on 02/19/21 for Pneumonia, Acute Respiratory Failure P: Barbi continues to be closely monitored in the ICU and treated for COVID. CM continues to follow.
[2021-02-26] MEDS: Simethicone 80 MG CHEW 40 MG PO (11:38)
[2021-02-26] MEDS: MORPHine 2 MG/ML SYR 1 MG IVP (11:38)
[2021-02-26] MEDS: Enoxaparin 80 MG/0.8 ML SYR 70 MG SC (14:45)
[2021-02-26] MEDS: Atorvastatin 40 MG TAB 80 MG PO (19:59)
[2021-02-27] VITALS (15 sets, daily range): BP systolic 106–150; BP diastolic 70–90; PULSE 62–127; RESP 8–41; TEMP 31–36.4; O2SAT 82–93
[2021-02-27 07:23] LABS: Abs Immature Grans 0.09 10^3/uL (0.0-0.06); Absolute Basophil Count 0.04 10^3/uL (0.0-0.2); Absolute Monocyte Count 0.67 10^3/uL (0.1-0.8); Absolute Neutrophil Count 13.11 10^3/uL (1.2-6.7); Basophils % 0.3; Eosinophils % 0.1; HCT 49.1 % (36.0-46.0); Immature Grans % 0.6; Lymphocytes % 4.7; MCH 32.8 pg (27.0-33.0); MCHC 32.6 % (32.0-36.0); MCV 100.6 fL (80-95); MPV 12.6 fL (8.0-11.0); Monocytes % 4.6; Neutrophils % 89.7; Nucleated RBC 0 %; Platelet Count 199 10^3/uL (130-400); RBC 4.88 10^6/uL (3.93-5.22); RDW 14.3 % (11.7-14.6); RDW-SD 53.2 fL; WBC 14.61 10^3/uL (4.4-10.8)
[2021-02-27 07:25] LABS: Absolute Eosinophil Count 0.01 10^3/uL (0.0-0.7); Absolute Lymphocyte Count 0.69 10^3/uL (1.2-3.4)
[2021-02-27] MEDS: Enoxaparin 80 MG/0.8 ML SYR 70 MG SC (07:33)
[2021-02-27 07:34] LABS: ALT 52 U/L (14-59); AST 24 U/L (15-37); Albumin 3.1 g/dL (3.4-5.0); Alkaline Phosphatase 56 U/L (46-116); Anion Gap 3.2 mmol/L (3-11); BUN 30 mg/dL (7-18); Bilirubin, Direct 0.1 mg/dL (0.0-0.2); Bilirubin, Total 0.6 mg/dL (0.2-1.0); CO2 31.8 mmol/L (21.0-32.0); CREATININE 0.8 mg/dL (0.55-1.02); Calcium 9.3 mg/dL (8.5-10.1); Chloride 100 mmol/L (98-107); Glucose 105 mg/dL (74-106); Potassium 4.8 mmol/L (3.5-5.1); Sodium 135 mmol/L (136-145); Total Protein 6.7 g/dL (6.4-8.2)
[2021-02-27 07:35] LABS: Magnesium 2.4 mg/dL (1.8-2.4)
[2021-02-27 07:54] LABS: C-Reactive Protein < 0.05 mg/dL (0.0-0.3)
[2021-02-27 08:17] LABS: Ferritin 469 ng/mL (8-252)
--- NOTE | 2021-02-27 08:40 | W.PM.PROGNOT ---
Date of Service Date of service: 02/27/21 Time of Service: 12:52 Assessment and Plan Assessment and plan (1) Pneumonia due to COVID-19 virus: Status: Acute Assessment and plan: Complicated by an acute DVT/PE. She is worse today as far as her oxygen requirement and how she is feeling. At this point, I feel that the treatment is not helping and the patient will likely from this disease no matter what we do. It would be clinically appropriate to consider comfort measures. We have asked palliative care to return to talk to the patient and hope to organize a family meeting. Continues to require ICU until she is decided on comfort measures. (2) Acute respiratory failure with hypoxia: Status: Acute Assessment and plan: As above (3) Acute pulmonary embolism: Status: Suspected Assessment and plan: Started on full dose lovenox yesterday. COntinue. Likely contributing to PE. (4) Right leg DVT: Status: Acute Assessment and plan: As above (5) COPD (chronic obstructive pulmonary disease): Status: Chronic Assessment and plan: As above Also, continue Symbicort and prn albuterol Qualifiers: COPD type: COPD with acute lower respiratory infection Qualified Code(s): J44.0 - Chronic obstructive pulmonary disease with (acute) lower respiratory infection (6) Hypertension: Status: Chronic Assessment and plan: Continue No longer requiring levophed. Qualifiers: Hypertension type: primary hypertension Qualified Code(s): I10 - Essential (primary) hypertension (7) Lung cancer, middle lobe: Status: Chronic Assessment and plan: h/o lobectomy. It is not clear what the status of her malignancy is and it could be contributing to her current condition. (8) Discharge planning issues: Status: Acute Assessment and plan: DNR/DNI Palliative care is being asked to come back to discuss comfort measures. The patient is undecided. Continues to require ICU. Total Critical Care Time [address] Ching Subjective Subjective Interval history since last seen: I can't live like this. I can't live like this. Something's gotta give. I discussed with Ms Barrientos that she appears to be doing worse. Her oxygen requirement on CPAP is now 100% with PEEP of 9. She is not sure she is ready for comfort measures. She is willing to talk to palliative care about it. She agrees to talk to her family. Reported chest pressure overnight. Our feeling is that it could be due to a PE. On CPAP all night. No diarrhea/abdominal pain. UOP 450 cc in 12 hrs. Exam Narrative Exam Narrative: General: Elderly female who is on CPAP in bed, looks worse, anxious HEENT: EOMI, MMM Heart: RRR, + DARRION, tachycardic Lungs: Diminished breath sounds B Abdomen: soft, +BS, nontender, nondistended Extremities: no edema, + 1 B pedal pulses Objective Last Vital Signs Temp 36.4 C L 02/27/21 03:00 Pulse 67 02/27/21 06:00 Resp 20 02/27/21 06:00 BP 138/71 02/27/21 06:00 Pulse Ox 91 L 02/27/21 06:00 Laboratory Results - last 24 hr 02/27/21 02/27/21 02/27/21 06:45 06:45 06:45 WBC 14.61 H RBC 4.88 Hgb 16.0 H Hct 49.1 H MCV 100.6 H MCH 32.8 MCHC 32.6 RDW 14.3 Plt Count 199 MPV 12.6 H Immature Gran % 0.6 Neutrophils % 89.7 Lymphocytes % 4.7 Monocytes % 4.6 Eosinophils % 0.1 Basophils % 0.3 Nucleated RBC % 0 Absolute Neutrophils 13.11 H Absolute Lymphocytes 0.69 L Absolute Monocytes 0.67 Absolute Eosinophils 0.01 Absolute Basophils 0.04 Sodium 135 L Potassium 4.8 Chloride 100 Carbon Dioxide 31.8 Anion Gap 3.2 BUN 30 H Creatinine 0.8 Estimated GFR/1.73 m2 >= 60.00 Glucose 105 Calcium 9.3 Magnesium 2.4 Ferritin 469 H Total Bilirubin 0.6 Conjugated Bilirubin 0.1 AST 24 ALT 52 Alkaline Phosphatase 56 C-Reactive Protein < 0.05 Total Protein 6.7 Albumin 3.1 L
--- NOTE | 2021-02-27 08:44 | CMPROGNOTE_ITS ---
Care Management Progress Note S/O: Payton continues to be closely monitored and treated for Covid Pneumonia, she remains on CPAP per RT, and at this time is no longer able to be transitioned back to HI-NARCISA. Payton connects with her daughters via ICU IPAD; [phone]. She was told over the weekend that her son due to COVID, per MD discussion will be had with Payton and Palliative care regarding goals of care. New finding of DVT, suspicion for PE per MD-anticoagulation medications started yesterday. CM continues to follow. A: 85 year old female admitted to [facility] on 02/19/21 for Pneumonia, Acute Respiratory Failure P: Barbi continues to be closely monitored in the ICU and treated for COVID. CM continues to follow.
[2021-02-27] MEDS: Sodium Chloride-Nasal SPRAY-ADULT 44 ML BTL NS (09:32)
[2021-02-27] MEDS: Dexamethasone 10 MG/ML VIAL 6 MG IVP (09:32)
[2021-02-27] MEDS: Aspirin E.C. 81 MG TABEC PO (09:32)
[2021-02-27] MEDS: Multivitamin TAB 1 TAB PO (09:33)
[2021-02-27] MEDS: Normal Saline Flush 10 ML SYR IVP ×3 (09:33→14:48)
[2021-02-27] MEDS: Magnesium Oxide 400 MG TAB PO (09:33)
[2021-02-27] MEDS: guaiFENesin 600 MG TABCR PO (09:33)
[2021-02-27] MEDS: FAMOTIDINE 20 MG/50 ML BAG 200 MG IVPB (09:35)
--- NOTE | 2021-02-27 11:22 | W.PULMCC ---
General Date of Service Date of service: 02/27/21 Time of Service: 08:15 Reason for Admission to ICU: Covid pneumonia Assessment and Plan Assessment and plan (1) COVID: Status: Acute (2) COPD (chronic obstructive pulmonary disease): Status: Chronic Qualifiers: COPD type: COPD with acute lower respiratory infection Qualified Code(s): J44.0 - Chronic obstructive pulmonary disease with (acute) lower respiratory infection (3) Lung cancer, middle lobe: Status: Chronic (4) Respiratory failure with hypoxia: Status: Acute Qualifiers: Chronicity: acute Qualified Code(s): J96.01 - Acute respiratory failure with hypoxia (5) Shock circulatory: Status: Acute Assessment and plan: This is a critically ill 85-year-old female with history of right middle lobe lung cancer who is admitted to the ICU with severe Covid pneumonia and shock. She is requiring high levels of oxygen support and required a Levophed infusion for a short period of time. She has been alternating between CPAP and high flow nasal cannula to maintain her saturations. Her chest CT is consistent with an organizing pneumonia as a known sequelae of Covid pneumonia. We will continue to treat her with remdesivir and Decadron however I am concerned that these will not improve her breathing dramatically. She completed a course of antibiotics for pneumonia despite a low likelihood of bacterial infection. A procalcitonin was checked over the weekend which was also negative. Yesterday a duplex of all 4 extremities found a clot in the right leg so she was started on therapeutic anticoagulation. She still appears quite fatigued and tired this morning. Recommendations Pulmonary: Acute hypoxic respiratory failure - CPAP at night and to rest, with HFNC for breaks - No IVF (dry lungs are happy lungs) - aspiration precautions RML lung cancer - unclear regarding whether this was fully treated, however she is not receiving treatment for this at this time h/o COPD - recommend Duonebs q4hr standing Cardiac: Distributive Shock, resolved - currently not requiring vasopressor support - on Decadron so any degree of cortisol deficiency is being treated - troponins negative and clinically does not appear to be in cardiogenic shock - hold all blood pressure lowering medications Renal: No acute concerns - recommend a negative fluid balance I&O: Intake & Output 02/24/21 02/25/21 02/26/21 02/27/21 23:59 23:59 23:59 23:59 Intake Total 2052.2 / 2052.2 1230 / 1230 250 / 250 330 / 330 Output Total 2451 / 2451 1100 / 1100 1225 / 1225 400 / 400 Balance -397.8 / -397.8 130 / 130 -975 / -975 -70 / -70 Weight 68.6 kg Daily Fluid Goal:: -500 to -1L GI Nutrition: OK for diet Date of Last Bowel Movement: 02/25/21 Infectious Disease: COVID-19 Pneumonia - continue Decadron 6mg daily while in ICU - continue remdesivir - CRP is negative, will not redose with sarilumab - would not recommend further antibiotics given negative procalcitonin - out of bed to chair as tolerated - I.S. and VibraPEP. 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 Code Status: Resuscitation Status DNR/DNI Subjective Critical and life-threatening events over the past 24 hours: Patient remained on CPAP overnight with an FiO2 of 65% and a PEEP of 8. This morning she was transitioned to high flow nasal cannula and required 85% FiO2 with 60 L of flow. She appears very fatigued this morning and states that since hard to breathe through her nose because she is clogged. She does say she breathes easier on the mask. Exam Const General: in distress moderate and respiratory Nutritional Appearance: well nourished [facility] Head: normocephalic Ears: external ears normal and no periauricular adenopathy General nose exam: nasal mucous membranes and turbinates normal Face and sinus: sinuses nontender Mouth: oropharynx normal and moist mucous membranes Teeth and gingiva: dentition normal Eyes General: appearance normal, both eyes and all related structures Pupils: PERRL Neck Neck: normal visual inspection and no lymphadenopathy Chest Chest: normal inspection of the chest Resp Effort & Inspection: normal respiratory effort Auscultation: rales bilaterally, no rhonchi and no wheezes Cardio Rate: regular rate Rhythm: regular rhythm Heart Sounds: S1 normal, S2 normal and no murmurs Pulses: radial pulses present bilaterally GI Inspection: normal to inspection Palpation: soft Skin General skin exam: no rashes or lesions noted Neuro General: patient alert, patient awake and patient oriented x3 Extrem General: no clubbing, cyanosis or edema Psych Mental Status: mental status grossly normal Affect: normal affect Attitude: cooperative Most Recent VS/Results Last Vital Signs Temp 36.4 C L 02/27/21 03:00 Pulse 67 02/27/21 06:00 Resp 20 02/27/21 06:00 BP 138/71 02/27/21 06:00 Pulse Ox 91 L 02/27/21 06:00 Laboratory Results - last 24 hr 02/27/21 02/27/21 02/27/21 06:45 06:45 06:45 WBC 14.61 H RBC 4.88 Hgb 16.0 H Hct 49.1 H MCV 100.6 H MCH 32.8 MCHC 32.6 RDW 14.3 Plt Count 199 MPV 12.6 H Immature Gran % 0.6 Neutrophils % 89.7 Lymphocytes % 4.7 Monocytes % 4.6 Eosinophils % 0.1 Basophils % 0.3 Nucleated RBC % 0 Absolute Neutrophils 13.11 H Absolute Lymphocytes 0.69 L Absolute Monocytes 0.67 Absolute Eosinophils 0.01 Absolute Basophils 0.04 Sodium 135 L Potassium 4.8 Chloride 100 Carbon Dioxide 31.8 Anion Gap 3.2 BUN 30 H Creatinine 0.8 Estimated GFR/1.73 m2 >= 60.00 Glucose 105 Calcium 9.3 Magnesium 2.4 Ferritin 469 H Total Bilirubin 0.6 Conjugated Bilirubin 0.1 AST 24 ALT 52 Alkaline Phosphatase 56 C-Reactive Protein < 0.05 Total Protein 6.7 Albumin 3.1 L Review of Systems All systems reviewed & are unremarkable except as noted in HPI and below Cardiovascular Cardiovascular: Denies chest pain at rest, Denies diaphoresis, Denies leg edema, Reports dyspnea and Reports dyspnea on exertion Respiratory Respiratory: Reports cough, Reports dyspnea and Reports dyspnea on exertion
[2021-02-27] MEDS: Albuterol 2.5 MG/3 ML INH SOLN VIAL UPD (12:35)
--- NOTE | 2021-02-27 13:50 | RESPIRATORY ---
At 13:30, patient stated to both Arabella Mcnair (HEARING HEALTH TECHNICIAN) and I, I can't take it anymore and, I want to just go to sleep and be done with it. I called the hospitalist (Dr. Grider) from the pt's room to report this information. Hospitalist asked that I confirm what the patient's wishes were and ask if the patient would like to speak with her family before we make any changes to care plan. Pt stated that she was not sure she was strong enough to say goodbye to them, but was okay with Care Mangers moving forward in contacting them. While on FaceTime with two of her daughters (Danielle and Crys) and Arabella and I in the room, pt stated that she did not want to suffer anymore and asked us, is it wrong of me to want to cut this short?. During these conversations with family and healthcare team, pt was on High Flow System with a flow of 60Lpm, FiO2 95%, with SpO2 84%.
--- NOTE | 2021-02-27 14:13 | NUR.NOTE ---
Nursing Note: 1330 Daryl Dumont RT in room and Arabella WARREN in room with patient. Malcolm Dumont RN reported to this nurse patient stated she can't take it anymore and she wants to go to sleep. Malcolm then called Dr. Grider from patient's room to report patient's statement.
[2021-02-27] MEDS: MORPHine 250 MG in Normal Saline 245 ML IV (14:19)
[2021-02-27] MEDS: Ondansetron 4 MG/2 ML VIAL IVP (14:48)
[2021-02-27] MEDS: LORazepam 2 MG/ML VIAL IV/SC (15:35)
--- NOTE | 2021-02-27 16:03 | PCPN_ITS ---
Date of service: 02/27/21 Assessment and Plan Assessment and plan (1) Pneumonia due to COVID-19 virus: Status: Acute Assessment and plan: She has struggled with this virus for two weeks +. Her oxygenation is quite poor. She does not want non invasive pulmonary supports any more. She feels she is dying. She feels she has had enough. She has said good by to her daughters. She is exhausted. She wants to be kept comfortable. (2) Acute respiratory failure with hypoxia: Status: Acute Assessment and plan: Doesn't want CPAP any more. Willing to accept high flow for now, at maximal oxygenation, but is not sure she will keep this on for long. Morphine helped with her air hunger. SHe is now on a morphine drip at 3 mg/hr, with 3 mg bolus q 15 minutes. She is also on a low dose lorazepam drip to help with the anxiety of dyspnea. She will not be able to breathe at the rate she is breathing for much longer. Her RR ranged from 28-32 during my visit, despite having been given 5 mg of IVP morphine. (3) Goals of care, counseling/discussion: Status: Acute Assessment and plan: Payton is very clear that she just wants to be comfortable. She wants to pass quickly and in peace. She says she is ready. She has said her good-byes. (4) Dying care: Status: Acute Assessment and plan: She is very clear that she wants comfort measures maximized. She expressed her readiness to . Did not want a fig bar machine operator. (5) Grief at loss of child: Status: Acute Assessment and plan: This is likely contributing to her exhaustion and anxiety. I offered my condolences. She is too weak to talk about her son. Subjective Subjective Patient reports: shortness of breath and fever; denies feels better and tolerating a regular diet Interval history since last seen: I saw Payton in the ICU where she has been since admission with COVID-19. Her son, Devon, of COVID-19 on February 24, at an ICU in [place]. He likely is the person who infected his mother when he came to visit a few weeks ago. She has 4 surviving children, all daughters. She is estranged from one daughter, Rod, who has called the hospital asking to speak with her mother. Payton has not wanted to speak to her. She did say goodbye to daughters Danielle and Crys by FaceTime earlier today. Her daughter Naomi called for an update and nurses gave her one. I asked Payton if there was anyone she wanted to speak to; she said she had said her good-byes. She is tachypneic. She is restless. She feels short of breath. She was on BiPap earlier today but asked to have it removed. She is on maximal High Flow Oxygen support at an FI02 of 100% on 15/L min. She told the RT, Malcolm, that she didn't like the high-flow either; it made her nose feel stuffed. It wasn't bothering her when I was in the room. I told her she could ask the nurses to change her over to NC if and when she wants to. I asked what she wanted and she said Peace. I discussed managing her tachypnea and anxiety with a morphine drip and lorazepam drip respectively. She was given 5 mg of morphine IVP just before I ca me to see her. She was not sedated; she still was tachypneic. Dr Grider raised her continuous morphine dose from 1 mg to 3 mg with a 3 mg bolus q15 minutes. She started Payton on lorazepam at 0.5 mg/hr. Exam Narrative Exam Narrative: Payton was sitting up in bed at 80 degrees wearing her hi-flow oxygen. She could say just a few words, with effort. She answered most questions with one word. She is in respiratory distress. She is cognitively intact. She says she is exhausted. She says she wants peace. Her lungs were tight and crackly throughout. She was quite tachypneic with a respiratory rate in the low 30s. . Her HR was regular. I could not appreciate a murmur. Her abdomen was overweight, soft, with hypoactive bowel sounds, NT, no masses. Extremities were cool but not mottled. Her skin was pale. She reported feeling anxious and depressed; she is actively grieving her son's . Objective Last Vital Signs Temp 96.6 F L 02/27/21 10:00 Pulse 127 H 02/27/21 14:00 Resp 41 H 02/27/21 14:00 BP 146/90 H 02/27/21 14:00 Pulse Ox 82 L 02/27/21 14:00 Laboratory Results - last 24 hr 02/27/21 02/27/21 02/27/21 06:45 06:45 06:45 WBC 14.61 H RBC 4.88 Hgb 16.0 H Hct 49.1 H MCV 100.6 H MCH 32.8 MCHC 32.6 RDW 14.3 Plt Count 199 MPV 12.6 H Immature Gran % 0.6 Neutrophils % 89.7 Lymphocytes % 4.7 Monocytes % 4.6 Eosinophils % 0.1 Basophils % 0.3 Nucleated RBC % 0 Absolute Neutrophils 13.11 H Absolute Lymphocytes 0.69 L Absolute Monocytes 0.67 Absolute Eosinophils 0.01 Absolute Basophils 0.04 Sodium 135 L Potassium 4.8 Chloride 100 Carbon Dioxide 31.8 Anion Gap 3.2 BUN 30 H Creatinine 0.8 Estimated GFR/1.73 m2 >= 60.00 Glucose 105 Calcium 9.3 Magnesium 2.4 Ferritin 469 H Total Bilirubin 0.6 Conjugated Bilirubin 0.1 AST 24 ALT 52 Alkaline Phosphatase 56 C-Reactive Protein < 0.05 Total Protein 6.7 Albumin 3.1 L
--- NOTE | 2021-02-27 17:44 | CHAPLAIN ---
I was asked by Maye Enciso, RN, and Eileen Cedeño, RN, to visit Payton Landon. Payton is on comfort measures now, after a speaking with Dr. Parry. Payton indicated that she knew she was dying and asked for comfort measures, according to Dr. Parry's Palliative Care notes. Payton wasn't speaking much when I was with her. She pulled off her high-flow oxygen, and when I tried to assist her to put it back on, and told her it would help with her breathing, she said I'm done with it. I asked her a second time, and she said, I've had enough of that. Later, she was speaking less clearly said something about being in the road, and also said she needed to introduce to me to someone. After that I couldn't understand what she was saying. She spoke earlier with through Facetime with two of her daughters, and another called later. A fourth daughter has called, but Payton has not wanted to speak to her. Her son of COVID-19 earlier this month, less than two weeks ago. Payton told Dr. Parry she was not able to talk about him. She also said she didn't want to see the sales marketing director, when Dr. Parry asked, but we had not read that note yet. Payton became less restless during the time I was sitting with her, but also continued to have a strained look on her face.
--- NOTE | 2021-02-27 19:18 | NUR.NOTE ---
Nursing Note: At round 1330 patient stated thatshe did not want to do this any more,she saiid she was done fighting, just wanted to go to sleep. Patient was able to facetime with two of her daughter at around 14:00. Patient was able to say good bye to her daughters. Patient stated what her wishes were. She just wanted to go She did not want to fight this fight anymore
--- NOTE | 2021-03-01 18:56 | EXPE_ITS ---
Date of service: 02/28/21 Time of Service: 17:00 Discharge Sum: Prov Provider Consults: 02/19/21 12:10 Pulmonology Consult [CONS] Routine Consulting Provider: Kathy Ching Consultation Status:: Contact made by Clarification:: Manage/follow per spec. Reason for consult:: COVID + / recently d/c'd. + pleural effusion and pneumonia 02/20/21 11:19 Palliative Care Consult [CONS] Routine Consultation Status:: Contact made by Clarification:: Manage/follow per spec. Reason for consult:: Goals of care Discharge Sum: Diag PCOD Cause of : Acute respiratory failure with hypoxia Contributing Factors (1) Acute respiratory failure with hypoxia: (2) Pneumonia due to COVID-19 virus: (3) Acute pulmonary embolism: (4) Right leg DVT: (5) Shock circulatory: (6) Loculated pleural effusion: (7) COPD (chronic obstructive pulmonary disease): (8) Organizing pneumonia: (9) Secondary pneumonia: (10) Lung cancer, middle lobe: Discharge Sum: Summary Date and Time Admission Date: 02/20/2108/23/21 11:54 Date of : 02/28/21 Time of : 00:00 Summary Details: Ms Barrientos was an 85 year old female with PMHx of COPD, asthma, hypertension, hyperlipidemia, lung cancer s/p lobectomy, who was vaccinated against COVID-19, and was admitted to [facility] ICU under the hospitalist service on 02/19/21 with acute hypoxic respiratory failure due to COVID-19 pneumonia with likely organizing pneumonia as a sequela of COVID-19 as well. There was a question of whether she had a superimposed bacterial pneumonia, for which she did receive abx. She was found to be in shock requiring vasopressors. She also did get IVF, which were soon discontinued. She was treated with dexamethasone, remdesivir, and sarilumab. She was followed by Dr Ching of pulmonology/critical care medicine. Her loculated pleural effusion was felt to be chronic. She was alternated between humidified heated high flow nasal canula and CPAP. Palliative care saw the patient, during which visit the patient changed her code status to DNR/DNI. The patient was able to be weaned off of vasopressors, but continued to have a progressively high oxygen requirement. There was a suspicion that she had developed an acute PE as she was found to have a RLE DVT. For this she was started on full anticoagulation with lovenox. On 02/27/21, she verbalized she no longer wanted acute interventions and that she was interested in going on comfort measures. She on 02/28/21 at 0000 and was pronounced at 0005. We appreciate the opportunity to care for the patient in her final days and wish the family well. Additional Data Confirmation of as documented by pronouncing clinician: no pulse, no respirations, no heart sounds and pupils fixed and dilated Family: contacted Attending/PCP notified?: Yes Attending Physician: Devon De La Torre MD, Yvan Was code activated?: No Autopsy requested?: No cloth colors examiner notified?: No Organ bank notified?: No Advance directives: Yes Hospice patient?: No
== END 2021-02-28 00:05 | disposition expired | DRG 177 ==
LOC: ER 13:09 → ICU 16:50
PROVIDERS: Family Medicine; Internal Medicine; Admitting Provider Family Medicine; Emergency Provider Physician Assistant; PCP Family Medicine; Visit Provider Family Medicine
DX: U07.1 COVID-19 (principal); J96.01 Acute respiratory failure with hypoxia; J12.82 Pneumonia due to coronavirus disease 2019; I26.99 Other pulmonary embolism without acute cor pulmonale; J44.0 Chronic obstructive pulmonary disease with (acute) lower respiratory infection; C34.2 Malignant neoplasm of middle lobe, bronchus or lung; J91.8 Pleural effusion in other conditions classified elsewhere; I82.411 Acute embolism and thrombosis of right femoral vein; G93.49 Other encephalopathy; Z51.5 Encounter for palliative care; Z66 Do not resuscitate; Z90.2 Acquired absence of lung [part of]; I35.0 Nonrheumatic aortic (valve) stenosis; K57.90 Diverticulosis of intestine, part unspecified, without perforation or abscess without bleeding; E78.5 Hyperlipidemia, unspecified; I10 Essential (primary) hypertension; M17.11 Unilateral primary osteoarthritis, right knee; I73.9 Peripheral vascular disease, unspecified; R32 Unspecified urinary incontinence; R57.0 Cardiogenic shock; R00.1 Bradycardia, unspecified; J84.10 Pulmonary fibrosis, unspecified; F43.20 Adjustment disorder, unspecified
CPT/HCPCS: 36415; 36591; 71045; 71275; 80048; 80053; 80076; 82306; 82550; 82805; 84145; 87040; 87081; 87493; 93005; 94640; 96361; 96365; 96367; 96368; 96375; 99291; J1650; 36600; 80202; 81003; 82728; 83605; 83735; 83880; 84132; 84484; 85025; 85379; 85610; 85730; 86140; 93010; 93970; 94660; 94667; 99223; 99232; 99233; 99238; J1100; J2060; J2270; J2405; J3475; J3480; J3490; J7613